=== PATIENT | female | born 1990 | race Caucasian/White ===

== ENCOUNTER → 2017-12-14 14:51 | Outpatient (CLI) | payer MEDICAID, SELFPAY ==
[2017-12-14 17:51] LABS: Chlamydia Trachomatis by PCR Negative (Negative); Neisserai gonorrhoeae by PCR Negative (Negative); Probe Check PASS; Sample Adequacy Control PASS; Specimen Processing Control PASS
[2017-12-22 11:39] LABS: HPV HC, High Risk Negative (Negative)
[2017-12-22 12:10] LABS: HPV Reflexed? YES, CHARGE PATIENT
== END ==
PROVIDERS: Visit Provider Obstetrics & Gynecology
DX: Z12.4 Encounter for screening for malignant neoplasm of cervix (principal); Z11.3 Encounter for screening for infections with a predominantly sexual mode of transmission
CPT/HCPCS: 87491; 87591; 87624; 88175; G0145

== ENCOUNTER → 2018-01-06 12:04 | Outpatient (CLI) | payer MEDICAID, SELFPAY ==
[2018-01-06 12:29] LABS: Absolute Lymphocyte Count 3.51 X10^3/ul (0.83-4.51); Absolute Neutrophil Count 6.9 X10^3/uL (2.0-7.7); Basophil# 0.02 X10^3/uL; Basophil% 0.2 % (0-1); Eosinophil# 0.28 X10^3/uL; Eosinophils% 2.5 % (0-5); Hematocrit 41.2 % (37-47); Hemoglobin 13.5 g/dl (12.0-15.0); Lymphocyte # 3.51 X10^3/ul (4.0); Lymphocyte % 31.5 % (19-41); Mean Corp Hgb Conc 32.8 g/gl (32-36); Mean Corpuscular Hgb 29.5 pg (27.0-32.0); Mean Platelet Vol. 9.7 fl (6.2-12.0); Monocyte# 0.45 X10^3/uL; Neutrophil # 6.89 X10^3/uL (2.7-7.7); Neutrophil % 61.7 % (47-70); Platelet Count 246 K/mm3 (150-450); RBC Distribution Width CV 12.9 % (11.6-14.6); RBC Distribution Width SD 42.1 fl (35.1-43.9); Red Blood Count 4.58 M/mm3 (4.2-5.4); White Blood Count 11.2 K/mm3 (4.4-11.0)
[2018-01-06 12:31] LABS: POSITIVE COUNT NO; POSITIVE DIFFERENTIAL NO; POSITIVE MORPHOLOGY NO
[2018-01-06 13:19] LABS: Thyroid Stim Hormone (TSH) 0.69 uIU/mL (0.358-3.74)
[2018-01-06 13:50] LABS: HIV - WCH Non-Reactive (Nonreactive); Rubella IgG 115.3 IU/mL
[2018-01-06 14:08] LABS: Color, Urine Yellow (Yellow); Glucose, Dipstick Normal (Normal); Ketone-Dipstick Negative (Negative); Leukocyte Esterase-Dipstick Negative /ul (Negative); Nitrite-Dipstick Negative (Negative); Occult Blood-Urine 10 /ul (Negative); Protein-Dipstick Negative (Negative); Urine Bilirubin Dipstick Negative (Negative); Urine Clarity Clear (Clear); Urine Urobilinogen Normal (Normal)
[2018-01-06 14:14] LABS: COTININE Drug Screen Positive (<200 ng/mL)
[2018-01-06 14:18] LABS: Amphetamine Urine VISTA NEGATIVE (<1000 ng/mL); Barbiturate Urine VISTA NEGATIVE (< 200 ng/mL); Benzodiazepine Urine VISTA NEGATIVE (< 200 ng/mL); Cocaine Urine VISTA NEGATIVE (< 300 ng/mL); Ecstacy Urine VISTA NEGATIVE (< 500 ng/mL); Methadone Urine VISTA NEGATIVE (< 300 ng/mL); PCP Urine VISTA NEGATIVE (< 25 ng/mL); THC Urine VISTA POSITIVE (< 50 ng/mL); Vista UDS pH Range 6
[2018-01-07 01:17] LABS: Prenatal RPR NONREACTIVE (NONREACTIVE)
[2018-01-08 07:50] LABS: HEPATITIS B SURFACE AG Negative (Negative); Hep C Antibodies <0.1 s/co ratio (0.0-0.9); V-Zoster IgG (Immunity) < 135 index (Immune >165)
== END ==
PROVIDERS: Visit Provider Obstetrics & Gynecology
DX: Z34.81 Encounter for supervision of other normal pregnancy, first trimester (principal)
CPT/HCPCS: 36415; 80307; 81002; 84443; 85025; 86703; 86762; 86787; 86803; 87340

== ENCOUNTER → 2018-03-11 14:58 | Outpatient (CLI) | payer MEDICAID, SELFPAY ==
[2018-03-18 19:07] LABS: AFP MoM Value 1.33 (.); AFP Value-EIA 54.7 ng/mL (.); Comment Report (.); DIA MoM Value 1.83 (.); DSR (By Age) 797 (.); DSR (Second Trimester) 4079 (.); Gestat. Age Based On As provided (.); Gestational Age 18.6 WEEKS (.); Insulin Dep Diabetes No (.); Maternal Age At EDD 28.8 yr (.); hCG MoM 0.62 (.); hCG Value 13918 mIU/mL (.)
[2018-03-20 09:51] LABS: CF, Screen Comment: (.)
--- OUTSIDE RECORDS SUMMARY | 2018-05-06 14:20 | XMS RPT_ITS ---
:1990 Author Organization OHIP Care Team Providers Name Role Phone RICO SEVERINO MD Attending Unavailable PHYSICIAN, NONE Primary Care Unavailable ROSSI CHAPMAN Attending Unavailable PHYSICIAN, NONE Primary Care Unavailable Refugio Murphy Attending Unavailable SealRefugio vaughan Attending Unavailable Noreen Fuentes Attending Unavailable PROBLEMS PROBLEMS DATE TYPE CONDITION / CODE ATTENDING STATUS SOURCE 03/11/2018 Unknown Z34.82 - Encounter Noreen Fuentes Active [facility] for supervision of [facility] other normal Hospital , second Repository trimester / Z34.82(ICD-10) 01/06/2018 Unknown Z34.81 - Encounter Refugio Murphy Active [facility] for supervision of Community other normal Hospital , first Repository trimester / Z34.81(ICD-10) 12/14/2017 Unknown Z12.4 - Encounter Refugio Murphy Active [place] for screening for Community malignant neoplasm Hospital of cervix / Repository Z12.4(ICD-10) 12/14/2017 Unknown Z11.3 - Encounter Refugio Murphy Active [place] for screening for Community infections with a Hospital predominantly Repository sexual mode of transmission / Z11.3(ICD-10) PROCEDURES PROCEDURES No Procedure Records FoundRESULTS RESULTS CYSTIC FIBROSIS PROF Collected: 03/11/2018 Status: F Source: SONY 2:30 PM [facility] REPOSITORY Order Comment: Is Patient ? Y Enter Completed Weeks of Gestation: 18.6 Patient's Weight (LBS.): 179 Race: / Number of Fetuses: 1 Is Patient Insulin-Dependent Diabetic?: N TYPE CODE TESTS RESULT OUT OF RANGE REFERENCE UNITS LAB L3280.0200 . Normal CF, SCREEN Comment: Result Comment: RESULTS: Negative for 32 mutations analyzed INTERPRETATION: This individual is negative for the mutations analyzed. This negative result may need further interpretation depending on the clinical indication. This result reduces but does not eliminate the risk to be a CF carrier. COMMENTS: The detection rate varies with ethnicity and is listed below. The presence of an undetected mutation in the CF gene cannot be ruled out. In the absence of family history, the remaining risk that a person with a negative result could have at least one CF mutation is listed in the table. If there is a family history of CF, these risk figures do not apply. As detailed information regarding this individual's family history would permit a more accurate assessment of this individual's risk to be a carrier of cystic fibrosis, please contact [facility] at for a revised report. Mutation Detection Detection rates are based on mutation Rates among Ethnic frequencies in patients affected with Groups cystic fibrosis. Among individuals with an atypical or mild presentation (e.g. congenital absence of the vas deferens, pancreatitis) detection rates may vary from those provided here: Carrier risk reduction when no family history Detection Ethnicity Rate Ashkenazi 05/07 to 97% Mu-Ism 05/06 to 90% (non-) -Czech to 69% to 73% to 55% This interpretation is based on the clinical and family relationship information provided and the current understanding of the molecular genetics of this condition. MUTATIONS ANALYZED: G85E V520F X3600B 2183AA to G R117H G542X E4140W 2184delA R334W S549N 394delTT 2789+5G to A R347H S549R 621+1G to T 3120+1G to A R347P G551D 711+1G to T 3659delC A455E R553X 1078delT 3849+10kbC to T YwxybW809 R560T 1717-1G to A 3876delA BrvmzJ768 X6133C 1898+1G to A 3905insT METHODS/LIMITATIONS: DNA is isolated from the sample and tested for the 32 CF mutations on the [employer] Array Platform ([email or web address]). Regions of the CFTR gene are amplified enzymatically and subjected to a solution-phase multiplex allele-specific primer extension with subsequent hybridization to a bead array and fluorescence detection. Polymorphisms F508C, I506V and I507V are included in this panel to rule out false positive hqahdI533 homozygotes. Reflex testing of 5T is included in the panel for R117H interpretation. False positive or negative results may occur for reasons that include genetic variants, blood transfusions, bone marrow transplantation, erroneous representation of family relationships or contamination of a sample with maternal cells. REFERENCES: 1. Updates on Carrier Screening for Cystic Fibrosis. (2011) Am J Ob Gynecol 117(4):1236-5007 2. Pratik et al. (2004) Danitza Med 6:387-91 3. Bailey et al. (2002) Danitza Med 4:379-391 4. Preconception and carrier screening for cystic fibrosis: (2001)ACOG.ACMG publication Results Released By: Han Kim, Ph.D., Network Technical Analyst Released By: Han Kim, Ph.D., Director LAB L3280.0400 . Normal COMMENT Comment Result Comment: The assay provides information intended to be used for carrier screening in adults of reproductive age, as an aid in screening, and as a confirmatory test for another medically established diagnosis in newborns and children. The test is not indicated for use in diagnostic testing, pre-implantation screening, or for any stand-alone diagnostic purposes without confirmation by another medically established diagnostic product or procedure. Performed at: [facility] [address] [id number] L Tacker: Daniel Crowley MD, Phone: [phone] Performed By: #### L3280.0100, L3290.0100 #### [facility] (refer to report for specific site) refer to report for address and phone number AFP TETRA QUAD Collected: 03/11/2018 Status: F Source: SONY SCREEN 2:30 PM [facility] REPOSITORY Order Comment: Is Patient ? Y Enter Completed Weeks of Gestation: 18.6 Patient's Weight (LBS.): 179 Race: / Number of Fetuses: 1 Is Patient Insulin-Dependent Diabetic?: N TYPE CODE TESTS RESULT OUT OF REFERENCE UNITS RANGE LAB L3290.110 . 0 TEST RESULTS: Normal *Screen Negative* LAB L3290.120 . WEEKS 0 GESTATIONAL AGE Normal 18.6 LAB L3290.130 . 1 GEST AGE FROM As Normal provided LAB L3290.140 . yr 1 MATRNL AGE @[place] Normal 28.8 LAB L3290.150 . 0 RACE Normal Other LAB L3290.160 . lbs 0 WEIGHT Normal 179 LAB L3290.170 . 0 INS DEP DIABETE No Normal LAB L3290.180 . 0 MULT GESTATION No Normal LAB L3290.190 . ng/mL 0 AFP VALUE-EIA Normal 54.7 LAB L3290.200 . 0 AFP MOM VALUE Normal 1.33 LAB L3290.210 . mIU/mL 0 HCG VALUE Normal 67395 LAB L3290.220 . 0 HCG MOM Normal 0.62 LAB L3290.230 . ng/mL 0 UE3 VALUE Normal 2.09 LAB L3290.240 . 0 UE3 MOM Normal 1.48 LAB L3290.250 . pg/mL 0 ALIN VALUE-EIA Normal 286.09 LAB L3290.260 . 0 ALIN MOM VALUE Normal 1.83 LAB L3290.270 . 0 OSBR RISK Normal 4399 LAB L3290.280 . 0 DSR 2ND TRIMEST Normal 4079 LAB L3290.290 . 0 DSR (BY AGE) Normal 797 LAB L3290.310 . 0 T18 RISK Normal Not increased LAB L3290.320 . 0 T18 (BY AGE) Normal 1:3104 LAB L3290.330 . 0 INTERPRETATION Normal Comment Result Comment: Interpretation: Screen Negative This result is screen negative for OSB, Down Syndrome and Trisomy 18. The AFP MoM and patient specific risks calculated are based on the gestational age and the clinical information provided. This test can identify up to 80% of open neural tube defects. Closed neural tube defects and some open defects may not be detected by this test. The combination of maternal age, AFP, hCG, uE3, and ALIN identifies 75-80% of Down Syndrome. The combination of maternal age, AFP, hCG and uE3 identifies 60% of Trisomy 18 pregnancies. The [place] [employer] recommends amniocentesis be offered to women age 35 and older. Recalculations are not recommended when gestational dating by LMP and ultrasound are within 10 days. Performed By: #### L3280.0100, L3290.0100 #### [facility] (refer to report for specific site) refer to report for address and phone number URINE DRUG SCREEN Collected: 01/06/2018 Status: F Source: [place] ([place]) 12:05 PM [facility] REPOSITORY Order Comment: List of Drugs Taken or Suspected? UNK TYPE CODE TESTS RESULT OUT OF RANGE REFERENCE UNITS LAB L505.0075 TO BE Normal CONFIRMED Result Comment: CONFIRMATORY TESTING FOR ALL POSITIVE URINE DRUG SCREEN RESULTS WILL ONLY BE SENT OUT UPON PHYSICIAN ORDER. VISTA Urine Drug Screen methods provide only preliminary analytical test results. A more specific alternate chemical method must be used in order to obtain a confirmed analytical result. Gas chromatography/mass spectrometery (GC/MS) is the preferred confirmatory method. Clinical consideration and professional judgement should be applied to any drug of abuse test result, particularly when preliminary positive results are used. URINE TCA TESTING MUST BE ORDERED SEPARATELY. USE TEST MNEMONIC: [facility]CA LAB L505.5005 VISTA UDS PH 6 Normal LAB L505.5015 <1000 ng/mL AMPHETAMINES Normal NEGATIVE LAB L505.5025 < 200 ng/mL BARBITIURATES Normal NEGATIVE LAB L505.5035 < 200 ng/mL BENZODIAZIPINE Normal NEGATIVE LAB L505.5045 < 300 ng/mL COCAINE Normal NEGATIVE LAB L505.5055 < 500 ng/mL ECSTACY Normal NEGATIVE LAB L505.5065 < 300 ng/mL METHADONE Normal NEGATIVE LAB L505.5075 < 300 ng/mL OPIATES Normal NEGATIVE LAB L505.5085 < 25 ng/mL PCP Normal NEGATIVE LAB L505.5095 < 50 High ng/mL THC POSITIVE Performed By: #### L505.5000, L505.6240 #### [facility] [address] [place], [place], [id number] NICOTINE URINE DRUG Collected: 01/06/2018 Status: F Source: SONY SCREEN 12:05 PM [facility] REPOSITORY Order Comment: List of Drugs Taken or Suspected? UNK TYPE CODE TESTS RESULT OUT OF RANGE REFERENCE UNITS LAB L505.6250 TO BE Normal CONFIRMED Result Comment: CONFIRMATORY TESTING FOR ALL POSITIVE URINE DRUG SCREEN RESULTS WILL ONLY BE SENT OUT UPON PHYSICIAN ORDER. The results of Urine Drug Screen methods provide only preliminary analytical test results. A more specific alternate chemical method must be used in order to obtain a confirmed analytical result. Gas chromatography/mass spectrometery (GC/MS) is the preferred confirmatory method. Clinical consideration and professional judgement should be applied to any drug of abuse test result, particularly when preliminary positive results are used. LAB L505.6270 <200 ng/mL High COT DRG Positive SCREEN Result Comment: Cotinine is the first-stage metabolite of Nicotine. Performed By: #### L505.5000, L505.6240 #### [facility] [address] [facility] [place], [address] CBC W/DIFF, AUTOMATED Collected: 01/06/2018 Status: F Source: [place] 12:05 PM [facility] REPOSITORY TYPE CODE TESTS RESULT OUT OF RANGE REFERENCE UNITS LAB L100.1000 4.4-11.0 K/mm3 High WBC 11.2 LAB L100.1200 4.2-5.4 M/mm3 Normal RBC 4.58 LAB L100.1300 12.0-15.0 g/dl Normal HGB 13.5 LAB L100.1400 37-47 % Normal HCT 41.2 LAB L100.1500 81-99 fL Normal MCV 90.0 LAB L100.1600 27.0-32.0 pg Normal MCH 29.5 LAB L100.1700 32-36 g/gl Normal MCHC 32.8 LAB L100.1810 11.6-14.6 % Normal RDW CV 12.9 LAB L100.1820 35.1-43.9 fl Normal RDW SD 42.1 LAB L100.1900 150-450 K/mm3 Normal PLT 246 LAB L100.2000 6.2-12.0 fl Normal MPV 9.7 LAB L100.2100 47-70 % Normal NEUT% 61.7 LAB L100.2200 19-41 % Normal LY% 31.5 LAB L100.2300 0-10 % Normal MONO% 4.0 LAB L100.2400 0-5 % Normal EO% 2.5 LAB L100.2500 0-1 % Normal BASO% 0.2 LAB L100.2550 0.0-0.9 % Normal IM GRAN % 0.100 Result Comment: IG% - Immature Granulocytes (promyelocytes, myelocytes and metamyelocytes) > 1% indicates that a LEFT SHIFT is Present. LAB L100.2620 2.0-7.7 X10 3/uL Normal Absolute Neut 6.9 LAB L100.2720 0.83-4.51 X10 3/ul Normal Absolute Lymph 3.51 Performed By: #### L100.0100 #### [facility] [place], [address] THYROID STIM HORMONE Collected: 01/06/2018 Status: F Source: SONY ([place]) 12:05 PM [facility] REPOSITORY TYPE CODE TESTS RESULT OUT OF RANGE REFERENCE UNITS LAB L501.9520 0.358-3.74 uIU/mL Normal TSH 0.69 Performed By: #### L501.9520 #### [facility] [address] [place], [address] RUBELLA IGG Collected: 01/06/2018 Status: F Source: [place] 12:05 PM [facility] REPOSITORY TYPE CODE TESTS RESULT OUT OF RANGE REFERENCE UNITS LAB L509.4000 IU/mL Normal Rubella IgG 115.3 Result Comment: Antibody results Interpretation of Immune Status < 5 IU/ml Presumed Non-immune 5 - < 10 IU/ml Equivocal > or = 10 IU/ml Presumed Immune Performed By: #### L509.4000, L3890.6005 #### [facility] [place], [place], [address] HIV - [facility] Collected: 01/06/2018 Status: F Source: [place] 12:05 [facility] REPOSITORY TYPE CODE TESTS RESULT OUT OF RANGE REFERENCE UNITS LAB L3890.6005 Nonreactive Normal HIV - H Non-Reactive Performed By: #### L509.4000, L3890.6005 #### [facility] [address] [place] [address], [address] URINALYSIS, ROUTINE Collected: 01/06/2018 Status: F Source: [place] (DIPSTICK) 12:05 PM [facility] REPOSITORY Order Comment: How was Urine Obtained? CLEAN CATCH TYPE CODE TESTS RESULT OUT OF RANGE REFERENCE UNITS LAB L400.3000 Yellow COLOR Normal Yellow LAB L400.3050 Clear Normal CLARITY Clear LAB L400.3200 Normal mg/dl Normal GLUCOSE, UR Normal LAB L400.3300 Negative mg/dL Normal BILIRUBIN URINE Negative LAB L400.3400 Negative mg/dl Normal KETONE UR Negative LAB L400.3465 1.002-1.030 Normal SP.GR. DIPSTX 1.020 LAB L400.3550 5.0 - 8.0 pH UR Normal 6.0 LAB L400.3600 Negative mg/dl PROT Normal DIPSTX Negative LAB L400.3700 Normal mg/dl Normal UROBILI Normal LAB L400.3750 Negative Normal NITRITE UR Negative LAB L400.3780 Negative /ul High 10 OCCULT BLOOD-UR LAB L400.3800 Negative /ul LEUK Normal ESTERASE Negative Performed By: #### L400.2010 #### [facility] [address] [place], [place], [address] T AND S-NO Collected: 01/06/2018 Status: F Source: SONY [place] W/PNP 12:05 PM [facility] REPOSITORY Order Comment: Reason for Type AND Screen/Red Cells: Surgery? N TYPE CODE TESTS RESULT OUT OF RANGE REFERENCE UNITS LAB B10.0800 O Normal BLOOD POSITIVE TYPE GEL LAB B100.4050 Normal Ab SCREEN NEGATIVE GEL Performed By: #### B100.7550 #### [facility] [address] [facility] [address] [place], [place], [address] RPR Collected: 01/06/2018 Status: F Source: [place] 12:05 PM [facility] REPOSITORY TYPE CODE TESTS RESULT OUT OF REFERENCE UNITS RANGE LAB L700.5100 NONREACTIVE Normal RPR NONREACTIVE Performed By: #### L700.5100 #### [facility] [address] [facility] [address] [place], [place], [address] HEPATITIS B SURFACE Collected: 01/06/2018 Status: F Source: S[place]Y AG 12:05 PM [facility] REPOSITORY TYPE CODE TESTS RESULT OUT OF RANGE REFERENCE UNITS LAB L3100.0400 Negative Normal HB Negative SURF AG Result Comment: Performed at: - [facility] [id number] L Tacker: Bebo Rucker PhD, Phone: [phone] Performed By: #### L3100.0390, L3100.0625, L3400.0000 #### [facility] (refer to report for specific site) refer to report for address and phone number HEPATITIS C ANTIBODIES Collected: 01/06/2018 Status: F Source: [place] 12:05 PM [facility] REPOSITORY TYPE CODE TESTS RESULT OUT OF RANGE REFERENCE UNITS LAB L3100.0650 0.0-0.9 s/co ratio Normal HEP C AB <0.1 Result Comment: Negative: < 0.8 Indeterminate: 0.8 - 0.9 Positive: > 0.9 The CDC recommends that a positive HCV antibody result be followed up with a HCV Nucleic Acid Amplification test (556292). Performed By: #### L3100.0390, L3100.0625, L3400.0000 #### [facility] (refer to report for specific site) refer to report for address and phone number V-ZOSTER IGG Collected: 01/06/2018 Status: F Source: [place] (IMMUNITY) 12:05 PM [facility] REPOSITORY TYPE CODE TESTS RESULT OUT OF RANGE REFERENCE UNITS LAB L3400.0000 Immune >165 index Low VZOST IgG < 135 95298 Result Comment: Negative <135 Equivocal 135 - 165 Positive >165 A positive result generally indicates exposure to the pathogen or administration of specific immunoglobulins, but it is not indication of active infection or stage of disease. Performed By: #### L3100.0390, L3100.0625, L3400.0000 #### [facility] (refer to report for specific site) refer to report for address and phone number CT/NG [facility] BY PCR Collected: 12/14/2017 Status: F Source: [place] 2:30 PM [facility] REPOSITORY Order Comment: CYTOLOGY INFORMATION: - CLINICAL INFORMATION: - DATE LMP/MENOPAUSE: 10-30-17 LMP - COLLECTION VIAL: Thin Prep Vial - VEHICLE BODY SANDER SOURCE: CERVICAL/ENDOCERVICAL - COLLECTION TECHNIQUE: BRUSH/SPATULA TYPE CODE TESTS RESULT OUT OF RANGE REFERENCE UNITS LAB L8200.2100 Negative Normal Chlam Negative Trac PCR LAB L8200.2200 Negative Normal NG by Negative PCR Performed By: #### L8200.2000 #### [facility] [place], [address] PAP I-G W/RFX HRHPV Collected: 12/14/2017 Status: F Source: [place] 2:30 PM [facility] REPOSITORY Order Comment: CYTOLOGY INFORMATION: - CLINICAL INFORMATION: - DATE LMP/MENOPAUSE: 10-30-17 LMP - COLLECTION VIAL: Thin Prep Vial - VEHICLE BODY SANDER SOURCE: CERVICAL/ENDOCERVICAL - COLLECTION TECHNIQUE: BRUSH/SPATULA Specimen Comment: [id number] Specimen Comment: No. of containers..01 ThinPrep Vial TYPE CODE TESTS RESULT OUT OF REFERENCE UNITS RANGE LAB L7400.0800 . High DIAGN Comment Result Comment: EPITHELIAL CELL ABNORMALITY. ATYPICAL SQUAMOUS CELLS OF UNDETERMINED SIGNIFICANCE. LAB L7400.0900 . Normal ADEQ Comment Result Comment: Satisfactory for evaluation. Endocervical and/or squamous metaplastic cells (endocervical component) are present. LAB L7400.1300 . High RECOMM Comment Result Comment: Suggest follow up as clinically appropriate. LAB L7400.1400 . Normal PERFORM Comment Result Comment: Hiram Elaine, [employer] (ASCP) LAB L7400.1700 . Normal SIGN Comment Result Comment: Nam De La Cruz MD, Pathologist LAB L7400.1720 . Normal Path prov. Comment ICD9 Result Comment: R87.610 LAB L7400.2575 . Normal TEST METHOD Comment Result Comment: This liquid based ThinPrep(R) pap test was screened with the use of an image guided system. LAB L7400.2600 . Normal . COMM LAB L7400.2700 . Normal PAPSMR Comment Result Comment: The Pap smear is a screening test designed to aid in the detection of premalignant and malignant conditions of the uterine cervix. It is not a diagnostic procedure and should not be used as the sole means of detecting cervical cancer. Both false-positive and false-negative reports do occur. LAB L7400.2800 . Normal HPV RFLX Comment Result Comment: See below for HPV testing results. LAB L7400.2900 Negative Normal HPV Negative HC,HGH RISK Result Comment: This high-risk HPV test detects thirteen high-risk types (16/18/31/33/35/39/45/51/52/56/58/59/68) without differentiation. Performed at: - [facility] [id number] L Tacker: Farideh Resendiz MD, Phone: [phone] Performed at: = - [facility] [address] [id number] L Tacker: Farideh Resendiz MD, Phone: [phone] Performed By: #### L7400.0350 #### [facility] (refer to report for specific site) refer to report for address and phone number XR CHEST 2 VIEWS Observed: 11/18/2017 Status: F Source: [facility] 9:13 AM [facility] REPOSITORY ORIGINAL XR CHEST 2 VIEWS Clinical information: productive cough No prior studies are available for comparison. The heart is normal in size and configuration. Pulmonary vascular pattern is normal. The lungs are clear and normally aerated. The pleural margins and bony thorax are unremarkable. IMPRESSION: No acute intrathoracic abnormality. Interpreted By: Jose Manuel Mercer MD Preliminary Report By: Jose Manuel Mercer MD Electronically Signed By: Jose Manuel Mercer MD Dictated Date: 11/18/2017 9:19:09 AM Prelim Date: 11/18/2017 9:19:09 AM Sign Date: 11/18/2017 9:20:35 AM PREGU Collected: 11/18/2017 Status: F Source: [facility] 8:57 AM [facility] REPOSITORY TYPE CODE TESTS RESULT OUT OF RANGE REFERENCE UNITS LAB PREGU(LOIN C) Test Negative Urine LAB PRUG1(LOIN C) Unknown test HCG not (u) int detected. Performed By: #### PREGU #### [address] [address] ALLERGIES ALLERGIES No Allergies Records FoundENCOUNTERS ENCOUNTERS ADMIT/DISCHARGE ACCOUNT NUMBER ADMITTING ENCOUNTER LOCATION SOURCE CLASS 03/11/2018 [id number] [facility] ding:[facility] Repository 01/06/2018 [id number] [facility] ding:WOBLAB Repository 12/14/2017 [id number] [facility] ding:[facility] Repository 11/18/2017/11/19/19 [id number] Emergency BBuilding:ER [address] Repository 10/09/2017/10/10/19 [id number] Emergency BBuilding:ER [address] Repository PAYERS PAYERS ENCOUNTER GUARANTOR PAYER SUBSCRIBER SOURCE 03/11/2018 DANNY Primary DANNY [place] [id number] PADRONI [facility] On [facility] of [facility] Number: [id number] [id number] Repository [address]Lfo: . () Date:2018-03-11[address]ATTN: [place] [address]IA: 03/11/2018 Secondary NOT GIVENUNK [facility] Insurance:SELF PAY [facility] Number: Effective Repository Date:2018-03-11 01/06/2018 DANNY Primary DANNY [facility] [id number] [place] Insurance:CARESOURCEP CLAPPERDOB: On license of [facility] Number: [id number] [place], [place] [id number] Repository [address]Tux: . () Date:2018-01-06[address]ATTN: [place] [address]RJ: 01/06/2018 Secondary NOT GIVENUNK [place] Insurance:SELF PAY [facility] Number: Effective Repository Date:2018-01-06 12/14/2017 DANNY Primary DANNY [facility] [id number] [place] Insurance:CARESOURCEP CLAPPERDOB: On license of [facility] Number: [id number] [place], [place] [id number] Repository [address]Css: . () Date:2017-12-14[address]ATTN: [place] [address]FC: 12/14/2017 Secondary NOT GIVENUNK [place] Insurance:SELF PAY [facility] Number: Effective Repository Date:2017-12-14 11/18/2017 [facility]NY [facility]: [facility] [id number] MEDICAIDPolicy [id number] Repository [place] Number: [address] [place], [place] [id number] [place], [place] [address]Ywy: (330) Date:2017-11-18 [id number]: () [id number] [phone] Name:ALEXY Lambert ()Tel: [phone], [place] [phone] () [address]HV: 10/09/2017 DANNY M Primary [facility]NY [facility]: [facility]:CARESOURCE CLAPPERDOB: [facility] MEDICAIDPolicy [id number] Repository [place] Number: [address] [place], [place] [id number] [place], [place] [address]Cld: ([phone]) Date:2017-10-09 [id number]: () [id number] [phone] Name:LUZO Fausto ()Tel: [phone], [place] [phone] () [phone]:
== END ==
PROVIDERS: Visit Provider Obstetrics & Gynecology
DX: Z34.82 Encounter for supervision of other normal pregnancy, second trimester (principal)
CPT/HCPCS: 36415; 81220; 82105; 82677; 84702; 86336

== ENCOUNTER → 2018-04-28 13:27 | Outpatient (CLI) | payer MEDICAID, SELFPAY ==
[2018-04-28 15:59] LABS: Hematocrit 36.9 % (37-47); Hemoglobin 12.1 g/dl (12.0-15.0); Mean Corp Hgb Conc 32.8 g/gl (32-36); Mean Corpuscular Hgb 30.1 pg (27.0-32.0); Mean Corpuscular Volume 91.8 fL (81-99); Mean Platelet Vol. 10.3 fl (6.2-12.0); Platelet Count 246 K/mm3 (150-450); RBC Distribution Width CV 13.1 % (11.6-14.6); RBC Distribution Width SD 43.2 fl (35.1-43.9); Red Blood Count 4.02 M/mm3 (4.2-5.4); Scan Indicated on CBC? Y/N NO; White Blood Count 9.8 K/mm3 (4.4-11.0)
[2018-04-28 16:14] LABS: Glucose Challenge Gest 1H 50g 129 mg/dL (70-140)
--- OUTSIDE RECORDS SUMMARY | 2018-07-03 08:02 | XMS RPT_ITS ---
:1990 Author Organization OH[facility] Care Team Providers Name Role Phone RICO SEVERINO MD Attending Unavailable PHYSICIAN, NONE Primary Care Unavailable ROSSI CHAPMAN Attending Unavailable PHYSICIAN, NONE Primary Care Unavailable Katherine, Refugio Attending Unavailable Seals, Refugio Attending Unavailable Seals, Refugio Attending Unavailable Noreen Fuentes Attending Unavailable PROBLEMS PROBLEMS DATE TYPE CONDITION / CODE ATTENDING STATUS SOURCE 04/28/2018 Unknown Z34.82 - Encounter Refugio Murphy for supervision of Community other normal Hospital , second Repository trimester / Z34.82(ICD-10) 01/06/2018 Unknown Z34.81 - Encounter SealRefugio vaughan for supervision of Community other normal Hospital , first Repository trimester / Z34.81(ICD-10) 12/14/2017 Unknown Z12.4 - Encounter SealRefugio vaughan for screening for Community malignant neoplasm Hospital of cervix / Repository Z12.4(ICD-10) 12/14/2017 Unknown Z11.3 - Encounter SealRefugio vaughan for screening for Community infections with a Hospital predominantly Repository sexual mode of transmission / Z11.3(ICD-10) PROCEDURES PROCEDURES No Procedure Records FoundRESULTS RESULTS CBC-COMPLETE BLOOD CNT Collected: 04/28/2018 Status: F Source: [facility] NO DIFF [facility] TYPE CODE TESTS RESULT OUT OF RANGE REFERENCE UNITS LAB L100.1000 4.4-11.0 K/mm3 Normal WBC 9.8 LAB L100.1200 4.2-5.4 M/mm3 Low RBC 4.02 LAB L100.1300 12.0-15.0 g/dl Normal HGB 12.1 LAB L100.1400 37-47 % Low HCT 36.9 LAB L100.1500 81-99 fL Normal MCV 91.8 LAB L100.1600 27.0-32.0 pg Normal MCH 30.1 LAB L100.1700 32-36 g/gl Normal MCHC 32.8 LAB L100.1810 11.6-14.6 % Normal RDW CV 13.1 LAB L100.1820 35.1-43.9 fl Normal RDW SD 43.2 LAB L100.1900 150-450 K/mm3 Normal PLT 246 LAB L100.2000 6.2-12.0 fl Normal MPV 10.3 Performed By: #### L100.0500 #### [facility] [address] [place], [address] GLUCOSE CHALLENGE GEST Collected: 04/28/2018 Status: F Source: [place] 1H 50G 2:25 PM [facility] REPOSITORY TYPE CODE TESTS RESULT OUT OF RANGE REFERENCE UNITS LAB L501.0250 70-140 mg/dL Normal GLU GEST 129 50g 1H Performed By: #### L501.0250 #### [facility] [address] [place], [address] CYSTIC FIBROSIS PROF Collected: 03/11/2018 Status: F Source: [place] 2:30 PM [facility] REPOSITORY Order Comment: Is Patient ? Y [...] a carrier of cystic fibrosis, please contact [employer] at for a revised report. Mutation Detection Detection rates are based on mutation Rates among Ethnic frequencies in patients affected with Groups cystic fibrosis. Among individuals with an atypical or mild presentation (e.g. congenital absence of the vas deferens, pancreatitis) detection rates may vary from those provided here: Carrier risk reduction when no family history Detection Ethnicity Rate Ashkenazi 05/07 to 97% Uatsdin 05/06 to 90% (non-) -Mosotho to 69% to 73% to 55% This interpretation is based on the clinical and family relationship information provided and the current understanding of the molecular genetics of this condition. MUTATIONS ANALYZED: G85E V520F K9533R 2183AA to G R117H G542X I8044F 2184delA R334W S549N 394delTT 2789+5G to A R347H S549R 621+1G to T 3120+1G to A R347P G551D 711+1G to T 3659delC A455E R553X 1078delT 3849+10kbC to T QcraiM960 R560T 1717-1G to A 3876delA TxyvuQ299 R1875M 1898+1G to A 3905insT METHODS/LIMITATIONS: DNA is isolated from the sample and tested for the 32 CF mutations on the [employer] Array Platform ([employer]). Regions of the CFTR gene are amplified enzymatically and subjected to a solution-phase multiplex allele-specific primer extension with subsequent hybridization to a bead array and fluorescence detection. Polymorphisms F508C, I506V and I507V are included in this panel to rule out false positive [id number] homozygotes. Reflex testing of 5T is included in the panel for R117H interpretation. False positive or negative results may occur for reasons that include genetic variants, blood transfusions, bone marrow transplantation, erroneous representation of family relationships or contamination of a sample with maternal cells. REFERENCES: 1. Updates on Carrier Screening for Cystic Fibrosis. (2011) Am J Ob Gynecol 117(4):3819-1488 2. Pratik et al. (2004) [place]itza Med 6:387-91 3. Bailey et al. (2002) [place]za Med 4:379-391 4. Preconception and carrier screening for cystic fibrosis: (2001)ACOG.ACMG publication Results Released By: Han Kim, Ph.D., Tire Repairer Released By: Han Kim, Ph.D., Director LAB [...] established diagnostic product or procedure. Performed at: - [facility] [address] [place], [place] [id number] Slab Conditioner Supervisor: Daniel Crowley MD, Phone: [phone] Performed By: #### L3280.0100, L3290.0100 #### [facility] (refer to report for specific site) refer to report for address and phone number AFP TETRA QUAD Collected: 03/11/2018 Status: F Source: [place]ON[place] SCREEN 2:30 PM [facility] REPOSITORY Order Comment: Is Patient ? Y [...] L3290.210 . mIU/mL 0 HCG VALUE Normal 68900 LAB L3290.220 . 0 HCG MOM Normal [...] identifies 60% of Trisomy 18 pregnancies. The [place] [employer] recommends amniocentesis be offered to women age 35 and older. Recalculations are not recommended when gestational dating by LMP and ultrasound are within 10 days. Performed By: #### L3280.0100, L3290.0100 #### [facility] (refer to report for specific site) refer to report for address and phone number URINE DRUG SCREEN Collected: 01/06/2018 Status: F Source: [place] ([place]) 12:05 PM [facility] REPOSITORY Order Comment: List of Drugs Taken [...] POSITIVE Performed By: #### L505.5000, L505.6240 #### [facility] [address] [place], [place], [address] NICOTINE URINE DRUG Collected: 01/06/2018 Status: F Source: [place] SCREEN 12:05 PM [facility] REPOSITORY Order Comment: List of Drugs Taken [...] Nicotine. Performed By: #### L505.5000, L505.6240 #### [facility] [address] [place], [address] CBC W/DIFF, AUTOMATED Collected: 01/06/2018 Status: F Source: [place] 12:05 PM [facility] REPOSITORY TYPE CODE TESTS RESULT OUT [...] Lymph 3.51 Performed By: #### L100.0100 #### [facility] [address] [place] [address], [id number] THYROID STIM HORMONE Collected: 01/06/2018 Status: F Source: [place] (TSH) 12:05 PM [facility] REPOSITORY TYPE CODE TESTS RESULT OUT OF RANGE REFERENCE UNITS LAB L501.9520 0.358-3.74 uIU/mL Normal TSH 0.69 Performed By: #### L501.9520 #### [facility] [address] [place], [place], [address] RUBELLA IGG Collected: 01/06/2018 Status: F Source: [place] 12:05 PM [facility] REPOSITORY TYPE CODE TESTS RESULT OUT OF RANGE REFERENCE UNITS LAB L509.4000 IU/mL Normal Rubella IgG 115.3 Result Comment: Antibody results Interpretation of Immune Status < 5 IU/ml Presumed Non-immune 5 - < 10 IU/ml Equivocal > or = 10 IU/ml Presumed Immune Performed By: #### L509.4000, L3890.6005 #### [facility] [address] [place], [place], [address] HIV - WCH Collected: 01/06/2018 Status: F Source: [place] 12:05 PM [facility] REPOSITORY TYPE CODE TESTS RESULT OUT OF RANGE REFERENCE UNITS LAB L3890.6005 Nonreactive Normal HIV - WC Non-Reactive Performed By: #### L509.4000, L3890.6005 #### [facility] [address] [facility] [place], [place], [address] URINALYSIS, ROUTINE Collected: 01/06/2018 Status: F Source: [place] (DIPST[place]) 12:05 PM [facility] REPOSITORY Order Comment: How was Urine Obtained? [...] ESTERASE Negative Performed By: #### L400.2010 #### [facility] [address] [facility] [place], [place], [address] T AND S-NO Collected: 01/06/2018 Status: F Source: [place] CHARGE W/PNP 12:05 PM [facility] REPOSITORY Order Comment: Reason for Type AND Screen/Red Cells: Surgery? N TYPE CODE TESTS RESULT OUT OF RANGE REFERENCE UNITS LAB B10.0800 O Normal BLOOD POSITIVE TYPE GEL LAB B100.4050 Normal Ab SCREEN NEGATIVE GEL Performed By: #### B100.7550 #### [facility] [address] [place], [place], [address] RPR Collected: 01/06/2018 Status: F Source: [place] 12:05 PM [facility] REPOSITORY TYPE CODE TESTS RESULT OUT OF REFERENCE UNITS RANGE LAB L700.5100 NONREACTIVE Normal RPR NONREACTIVE Performed By: #### L700.5100 #### [facility] [address] [place], [place], [address] HEPATITIS B SURFACE Collected: 01/06/2018 Status: F Source: [place] AG 12:05 PM [facility] REPOSITORY TYPE CODE TESTS RESULT OUT OF RANGE REFERENCE UNITS LAB L3100.0400 Negative Normal HB Negative SURF AG Result Comment: Performed at: [facility] [id number] Slab Conditioner Supervisor: Bebo Rucker PhD, Phone: [phone] Performed By: #### L3100.0390, L3100.0625, L3400.0000 #### [facility] (refer to report for specific site) refer to report for address and phone number HEPATITIS C ANTIBODIES Collected: 01/06/2018 Status: F Source: [place] 12:05 PM [facility] REPOSITORY TYPE CODE TESTS RESULT OUT OF RANGE REFERENCE UNITS LAB L3100.0650 0.0-0.9 s/co ratio Normal HEP C AB <0.1 Result Comment: Negative: < 0.8 Indeterminate: 0.8 - 0.9 Positive: > 0.9 The CDC recommends that a positive HCV antibody result be followed up with a HCV Nucleic Acid Amplification test (712748). Performed By: #### L3100.0390, L3100.0625, L3400.0000 #### [facility] (refer to report for specific site) refer to report for address and phone number V-ZOSTER IGG Collected: 01/06/2018 Status: F Source: [place] (IMMUNITY) 12:05 PM [facility] REPOSITORY TYPE CODE TESTS RESULT OUT OF RANGE REFERENCE UNITS LAB L3400.0000 Immune >165 index Low VZOST IgG < 135 15149 Result Comment: Negative <135 Equivocal 135 - [...] BY PCR Collected: 12/14/2017 Status: F Source: [place] 2:30 PM [facility] REPOSITORY Order Comment: CYTOLOGY INFORMATION: - CLINICAL INFORMATION: - DATE LMP/MENOPAUSE: 10-30-17 LMP - COLLECTION VIAL: Thin Prep Vial - ONLINE RETAILER SOURCE: CERVICAL/ENDOCERVICAL - COLLECTION TECHNIQUE: BRUSH/SPATULA TYPE CODE TESTS RESULT OUT OF RANGE REFERENCE UNITS LAB L8200.2100 Negative Normal Chlam Negative Trac PCR LAB L8200.2200 Negative Normal NG by Negative PCR Performed By: #### L8200.2000 #### [facility] [address] [place], [address] PAP I-G W/RFX HRHPV Collected: 12/14/2017 Status: F Source: [place] 2:30 PM [facility] REPOSITORY Order Comment: CYTOLOGY INFORMATION: - CLINICAL INFORMATION: - DATE LMP/MENOPAUSE: 10-30-17 LMP - COLLECTION VIAL: Thin Prep Vial - ONLINE RETAILER SOURCE: CERVICAL/ENDOCERVICAL - COLLECTION TECHNIQUE: BRUSH/SPATULA Specimen Comment: [id number] Specimen Comment: No. of containers..01 ThinPrep Vial [...] Normal PERFORM Comment Result Comment: Hiram Elaine, Electrical Maintenance Engineer (ASCP) LAB L7400.1700 . Normal SIGN Comment [...] types (16/18/31/33/35/39/45/51/52/56/58/59/68) without differentiation. Performed at: - [facility] [id number] Slab Conditioner Supervisor: Farideh Resendiz MD, Phone: [phone] Performed at: = - [facility] [id number] Slab Conditioner Supervisor: Farideh Resendiz MD, Phone: [phone] Performed By: #### L7400.0350 #### [facility] (refer to report for specific site) refer to report for address and phone number XR CHEST 2 VIEWS Observed: 11/18/2017 Status: F Source: [facility] 9:13 AM [facility] REPOSITORY ORIGINAL XR CHEST [...] AM PREGU Collected: 11/18/2017 Status: F Source: [facility] 8:57 AM [facility] REPOSITORY TYPE CODE TESTS RESULT OUT OF RANGE REFERENCE UNITS LAB PREGU(LOIN C) Test Negative Urine LAB PRUG1(LOIN C) Unknown test HCG not (u) int detected. Performed By: #### PREGU #### Heather [address] [address] ALLERGIES ALLERGIES No Allergies Records FoundENCOUNTERS ENCOUNTERS ADMIT/DISCHARGE ACCOUNT NUMBER ADMITTING ENCOUNTER LOCATION SOURCE CLASS 04/28/2018 [id number] [facility] ding:WOBLAB Repository 03/11/2018 [id number] [facility] ding:LABSPEC Repository 01/06/2018 [id number] [facility] ding:WOBLAB Repository 12/14/2017 [id number] [facility] ding:LABSPEC Repository 11/18/2017/11/19/19 [id number] Emergency BBuilding:ER [address] Repository 10/09/2017/10/10/19 [id number] Emergency BBuilding:ER [address] Repository PAYERS PAYERS ENCOUNTER GUARANTOR PAYER SUBSCRIBER SOURCE 04/28/2018 DANNY Primary DANNY [place] [id number] MARINA Insurance:[facility]: [facility] Number: [id number] [id number] Repository [address]Vel: . () Date:2018-04-28[address]ATTN: [place] [address]JO: 04/28/2018 Secondary NOT GIVENUNK Sony Insurance:SELF PAY [facility] Number: Effective Repository Date:2018-04-28 03/11/2018 DANNY Primary DANYN [place] [id number] MARINA [facility] Number: [id number], [place] [id number] Repository [address]Mhi: . () Date:2018-03-11[address]N: [place] [address]DR: 03/11/2018 Secondary NOT GIVENUNK [place] Insurance:SELF PAY [facility] Number: Effective Repository Date:2018-03-11 01/06/2018 DANNY Primary DANNY [place] [id number] MARINA Insurance:CARESOURCEP CLAPPERDOB: [facility] Number: [id number], [place] [id number] Repository [address]Upo: . () Date:2018-01-06[address]ATTN: [place] [address]RT: 01/06/2018 Secondary NOT GIVENUNK Sony Insurance:SELF PAY [facility] Number: Effective Repository Date:2018-01-06 12/14/2017 DANNY Primary DANNY [place] [id number] MARINA Insurance:CARESOURCEP CLAPPERDOB: [facility] Number: [id number], [place] [id number] Repository [address]Gsw: . () Date:2017-12-14[address]ATTN: [place] [address]JH: 12/14/2017 Secondary NOT GIVENUNK Sony Insurance:SELF PAY [facility] Number: Effective Repository Date:2017-12-14 11/18/2017 [address] [facility]:CARESOURCE CLAERDOB: [facility] [id number] [facility]ICAIDPol[facility] [id number] Repository NEBO Number: [address] [place], [place] [id number] [place], [place] [address]Iue: ([phone]) Date:2017-11-18 [phone]: () [id number] [phone] Name:XPO Fausto ()Tel: [phone], [place] [phone] (WP) [address]AQ: 10/09/2017 [facility]THE [facility] LOUISElena JACKSONB: [facility] [id number] [facility]IDH[facility] [id number] Repository NE[place] Number: [address] [place], [place] [id number] [place], [place] [address]Cyj: ([phone]) Date:2017-10-09 [address]Ufn: () [id number] [phone] Name:LUZO Fausto ()Tel: [phone], [place] [phone] () [phone]:
== END ==
PROVIDERS: Visit Provider Obstetrics & Gynecology
DX: Z34.82 Encounter for supervision of other normal pregnancy, second trimester (principal)
CPT/HCPCS: 36415; 82950; 85027

== ENCOUNTER 2018-05-25 05:00 | Outpatient (CLI) | payer MEDICAID, SELFPAY ==
[2018-05-25 05:20] VITALS: BMI 33.8
[2018-05-25 06:23] LABS: Absolute Lymphocyte Count 0.96 X10^3/ul (0.83-4.51); Absolute Neutrophil Count 8.3 X10^3/uL (2.0-7.7); Basophil# 0.01 X10^3/uL; Basophil% 0.1 % (0-1); Eosinophil# 0.07 X10^3/uL; Eosinophils% 0.7 % (0-5); Hematocrit 37.9 % (37-47); Hemoglobin 12.4 g/dl (12.0-15.0); Lymphocyte # 0.96 X10^3/ul (4.0); Lymphocyte % 9.8 % (19-41); Mean Corp Hgb Conc 32.7 g/gl (32-36); Mean Corpuscular Hgb 29.7 pg (27.0-32.0); Mean Corpuscular Volume 90.7 fL (81-99); Mean Platelet Vol. 10.2 fl (6.2-12.0); Monocyte# 0.49 X10^3/uL; Neutrophil # 8.28 X10^3/uL (2.7-7.7); Neutrophil % 84.1 % (47-70); Platelet Count 210 K/mm3 (150-450); RBC Distribution Width SD 42.6 fl (35.1-43.9); Red Blood Count 4.18 M/mm3 (4.2-5.4); White Blood Count 9.8 K/mm3 (4.4-11.0)
[2018-05-25] MEDS: 0.9% Normal Saline 1,000 ML 500 ML IV (06:23)
[2018-05-25] MEDS: Ondansetron 4 MG/2 ML Vial IV (06:28)
[2018-05-25 06:29] LABS: POSITIVE COUNT NO; POSITIVE DIFFERENTIAL NO; POSITIVE MORPHOLOGY NO
[2018-05-25 06:42] LABS: ALB/GLOB Ratio 0.7 RATIO (0.9-2.4); AST(SGOT) 26 U/L (15-37); Alanine Aminotransfer ALT/SGPT 30 U/L (13-56); Albumin, Serum 2.5 g/dL (3.2-5.0); Alkaline Phosphatase 104 U/L (45-117); Amylase 29 U/L (25-115); Anion Gap 11 (5-15); BUN 7 mg/dL (7-18); BUN/Creat Ratio 16.9 RATIO (10-20); Calcium,Total 8.4 mg/dL (8.5-10.1); Chloride 106 mmol/L (98-107); Creatinine, Serum 0.41 mg/dL (0.55-1.02); EST Glomerular Filtration Rate 194 mL/min (>60); Est Glom Filt Rate - Afr Amer 235 mL/min (>60); Estimated Creatinine Clearance 161.57 ml/min; Globulin 3.8 g/dL (2.2-4.2); Glucose 97 mg/dL (74-106); Lipase 97 U/L (73-393); Potassium 3.7 mmol/L (3.5-5.1); Protein, Total 6.3 g/dL (6.4-8.2); Sodium Level 139 mmol/L (136-145)
[2018-05-25] MEDS: Dextrose 5%/0.9% NaCl 1,000 ML 200 ML IV (07:28)
--- NOTE | 2018-05-25 09:32 | OB.TRI.NOTE ---
History of Present Illness Date of Service: 05/25/18 Was patient seen by the physician?: No Reason For Visit: Flu symptoms Date of Service: 05/25/18 Final NEVILLE: 08/06/18 Final NEVILLE Source: US <20 weeks Gestational age: 29 Weeks and 4 Days History of Present Illness: 29+ week intrauterine presents with nausea vomiting and feeling poorly. care has been uneventful except for the patient being a smoker. Allergies No Known Allergies Allergy (Verified 05/25/18 05:33) Laboratory Studies: Laboratory Tests 05/25/18 05/25/18 Range/Units 06:10 06:10 WBC 9.8 (4.4-11.0) K/mm3 RBC 4.18 L (4.2-5.4) M/mm3 Hgb 12.4 (12.0-15.0) g/dl Hct 37.9 (37-47) % MCV 90.7 (81-99) fL MCH 29.7 (27.0-32.0) pg MCHC 32.7 (32-36) g/gl RDW 13.0 (11.6-14.6) % RDW Differential 42.6 (35.1-43.9) fl Plt Count 210 (150-450) K/mm3 MPV 10.2 (6.2-12.0) fl Immature Gran % (Auto) 0.300 (0.0-0.9) % Neut % (Auto) 84.1 H (47-70) % Lymph % (Auto) 9.8 L (19-41) % Elbert % (Auto) 5.0 (0-10) % Eos % (Auto) 0.7 (0-5) % Baso % (Auto) 0.1 (0-1) % Absolute Neuts (auto) 8.3 H (2.0-7.7) X10^3/uL Absolute Lymphs (auto) 0.96 (0.83-4.51) X10^3/ul Total Counted Not Reportable Sodium 139 (136-145) mmol/L Potassium 3.7 (3.5-5.1) mmol/L Chloride 106 (98-107) mmol/L Carbon Dioxide 22.0 (21.0-32.0) mmol/L Anion Gap 11 (5-15) BUN 7 (7-18) mg/dL Creatinine 0.41 L (0.55-1.02) mg/dL Estim Creat Clear Calc 161.57 ml/min Est GFR (MDRD) Af Amer 235 (>60) mL/min Est GFR (MDRD) Non-Af 194 (>60) mL/min BUN/Creatinine Ratio 16.9 (10-20) RATIO Glucose 97 (74-106) mg/dL Calcium 8.4 L (8.5-10.1) mg/dL Total Bilirubin 0.60 (0.20-1.00) mg/dL AST 26 (15-37) U/L ALT 30 (13-56) U/L Alkaline Phosphatase 104 (45-117) U/L Total Protein 6.3 L (6.4-8.2) g/dL Albumin 2.5 L (3.2-5.0) g/dL Globulin 3.8 (2.2-4.2) g/dL Albumin/Globulin Ratio 0.7 L (0.9-2.4) RATIO Amylase 29 (25-115) U/L Lipase 97 (73-393) U/L NST - FHR Rate Baby A NST Reactive:: Yes FHR Category:: Category I Impression/Plan 29+ week intrauterine with dehydration and some flulike symptoms. Reactive nonstress test. Will check patient for influenza and if positive will call in prescription for Tamiflu. Otherwise continue to push oral fluids, use Tylenol, and rest. Return with decreased movement or if severe nausea and vomiting persist for greater than 24 hours.
== END 2018-05-25 09:35 | disposition home or self-care (01) ==
LOC: WPOUT 05:07 → WP 05:07
PROVIDERS: Visit Provider Obstetrics & Gynecology
DX: O26.893 Other specified pregnancy related conditions, third trimester (principal); Z3A.29 29 weeks gestation of pregnancy; E86.0 Dehydration; R11.2 Nausea with vomiting, unspecified
CPT/HCPCS: 96361 ×3; 96374; 59050; 80053; 82150; 83690; 85025; 87804; 99218; J7030; G0378; J2405

== ENCOUNTER → 2018-07-07 10:56 | Outpatient (CLI) | payer MEDICAID, SELFPAY | PROVIDERS: Referring Provider Obstetrics & Gynecology; Visit Provider Obstetrics & Gynecology | DX: Z36.85 Encounter for antenatal screening for Streptococcus B (principal) | CPT/HCPCS: 87081 ==

== ENCOUNTER 2018-07-13 06:50 | Outpatient (CLI) | payer MEDICAID, SELFPAY ==
[2018-07-13 07:49] VITALS: BMI 34.2
--- NOTE | 2018-07-14 13:02 | OB.TRI.NOTE ---
History of Present Illness Date of Service: 07/13/18 Was patient seen by the physician?: Yes Reason For Visit: rule out active labor Date of Service: 07/13/18 Final NEVILLE: 08/06/18 Final NEVILLE Source: US <20 weeks Gestational age: 36 Weeks and 5 Days History of Present Illness: Regular contractions since previous evening. No signs of SROM Allergies No Known Allergies Allergy (Verified 07/13/18 07:52) Physical Exam General: Alert, Oriented x3, Cooperative, No apparent distress Lungs: Clear to auscultation, Normal air movement Abdomen: Soft, Non Tender, Non-Distended, Gravid, Appropriate for Gestational Age Extremities:: No edema Neurological: Neuro grossly intact TRAFFIC RATE CLERK: Normal external genitalia Estimated gestational size: Appropriate for gestational size Presentation: Cephalic Cervix Dilation (cm): 4 Station: -2 Effacement (%): 50 NST - FHR Rate Baby A Baseline: 150s Variability:: Moderate Accelerations:: 15 x 15 Decelerations:: None NST Reactive:: Yes, Appropriate for gestational age FHR Category:: Category I Uterine Activity:: q 3-6 minutes Impression/Plan No change in cervix over observation. Reassuring FHR tracing. Return with increasing symptoms of labor or signs of SROM
--- NOTE | 2018-07-14 13:06 | OB.TRI.HP_ITS ---
History of Present Illness Date of Service: 07/13/18 Was patient seen by the physician?: Yes Reason For Visit: rule out active labor Date of Service: 07/13/18 Final NEVILLE: 08/06/18 Final NEVILLE Source: US <20 weeks Gestational age: 36 Weeks and 5 Days History of Present Illness: Regular contractions since previous evening. No signs of SROM Allergies No Known Allergies Allergy (Verified 07/13/18 07:52) Physical Exam General: Alert, Oriented x3, Cooperative, No apparent distress Lungs: Clear to auscultation, Normal air movement Abdomen: Soft, Non Tender, Non-Distended, Gravid, Appropriate for Gestational Age Extremities:: No edema Neurological: Neuro grossly intact ASSEMBLY PERSON: Normal external genitalia Estimated gestational size: Appropriate for gestational size Presentation: Cephalic Cervix Dilation (cm): 4 Station: -2 Effacement (%): 50 NST - FHR Rate Baby A Baseline: 150s Variability:: Moderate Accelerations:: 15 x 15 Decelerations:: None NST Reactive:: Yes, Appropriate for gestational age FHR Category:: Category I Uterine Activity:: q 3-6 minutes Impression/Plan No change in cervix over observation. Reassuring FHR tracing. Return with increasing symptoms of labor or signs of SROM
== END 2018-07-13 09:50 | disposition home or self-care (01) ==
LOC: WPOUT 07:33 → WP 07:34
PROVIDERS: Family Provider Obstetrics & Gynecology; Visit Provider Obstetrics & Gynecology
DX: Z34.93 Encounter for supervision of normal pregnancy, unspecified, third trimester (principal)
CPT/HCPCS: 59025; 59050; 99218; G0378

== ENCOUNTER 2018-07-20 05:10 | Outpatient (CLI) | payer MEDICAID, SELFPAY ==
[2018-07-20 05:49] VITALS: BMI 36.1
[2018-07-20 07:45] LABS: Amphetamine Urine VISTA NEGATIVE (<1000 ng/mL); Barbiturate Urine VISTA NEGATIVE (< 200 ng/mL); Benzodiazepine Urine VISTA NEGATIVE (< 200 ng/mL); Cocaine Urine VISTA NEGATIVE (< 300 ng/mL); Ecstacy Urine VISTA NEGATIVE (< 500 ng/mL); Methadone Urine VISTA NEGATIVE (< 300 ng/mL); PCP Urine VISTA NEGATIVE (< 25 ng/mL); THC Urine VISTA POSITIVE (< 50 ng/mL); Vista UDS pH Range 7
--- NOTE | 2018-07-20 18:48 | OB.TRI.NOTE ---
History of Present Illness Date of Service: 07/20/18 Was patient seen by the physician?: No Reason For Visit: R/O LABOR Date of Service: 07/20/18 Final NEVILLE: 08/06/18 Final NEVILLE Source: US <20 weeks Gestational age: 37 Weeks and 4 Days History of Present Illness: Complains of contractions. No signs of SROM. Good movement. Allergies No Known Allergies Allergy (Verified 07/20/18 05:52) Laboratory Studies: Laboratory Tests 07/20/18 Range/Units 07:25 Urine Opiates Screen NEGATIVE (< 300 ng/mL) Urine Methadone Screen NEGATIVE (< 300 ng/mL) Ur Barbiturates Screen NEGATIVE (< 200 ng/mL) Ur Phencyclidine Scrn NEGATIVE (< 25 ng/mL) Ur Amphetamines Screen NEGATIVE (<1000 ng/mL) U Methamphetamin-MDMA NEGATIVE (< 500 ng/mL) U Benzodiazepines Scrn NEGATIVE (< 200 ng/mL) Urine Cocaine Screen NEGATIVE (< 300 ng/mL) U Cannabinoids Screen POSITIVE H (< 50 ng/mL) Ur Drug Screen Comment Physical Exam General: Alert, Oriented x3, Cooperative, No apparent distress Lungs: Clear to auscultation, Normal air movement Abdomen: Bowel Sounds Present, Soft, Non Tender, Non-Distended, Gravid, Appropriate for Gestational Age Extremities:: No edema Neurological: Neuro grossly intact SPORTS PHYSIOTHERAPIST: Normal external genitalia Estimated gestational size: Appropriate for gestational size Presentation: Cephalic Cervix Dilation (cm): 4 Station: -3 Effacement (%): 25 NST - FHR Rate Baby A Baseline: 140s Variability:: Moderate Accelerations:: 15 x 15 Decelerations:: None NST Reactive:: Yes, Appropriate for gestational age FHR Category:: Category I Uterine Activity:: irregular Impression/Plan No change in cervical exam since last office visit. Was observed for 2+ hours with no change in exam. WIll return with increasing intensity of contractions, bleeding, decreased movement or signs of SROM. Of note urine tox screen positive for THC today.
== END 2018-07-20 08:20 | disposition home or self-care (01) ==
LOC: WPOUT 05:45 → WP 05:45
PROVIDERS: Visit Provider Obstetrics & Gynecology
DX: O99.323 Drug use complicating pregnancy, third trimester (principal); F12.90 Cannabis use, unspecified, uncomplicated; N85.8 Other specified noninflammatory disorders of uterus; Z3A.37 37 weeks gestation of pregnancy
CPT/HCPCS: 59025; 59050; 80307; 99218; G0378

== ENCOUNTER 2018-07-27 11:57 | Inpatient (IN) | payer MEDICAID, SELFPAY ==
[2018-07-27 12:46] VITALS: BMI 34.9
[2018-07-27] MEDS: Lactated Ringers 1,000 ML 50 ML IV (13:00)
[2018-07-27] MEDS: Oxytocin 30 units/NS 500 ml 30 UNITS/500 ML IV.SOLN IV (13:07)
[2018-07-27 13:21] LABS: Absolute Lymphocyte Count 3.08 X10^3/ul (0.83-4.51); Absolute Neutrophil Count 7.3 X10^3/uL (2.0-7.7); Basophil# 0.01 X10^3/uL; Basophil% 0.1 % (0-1); Eosinophil# 0.15 X10^3/uL; Eosinophils% 1.3 % (0-5); Hematocrit 36.7 % (37-47); Hemoglobin 11.9 g/dl (12.0-15.0); Lymphocyte # 3.08 X10^3/ul (4.0); Lymphocyte % 27.5 % (19-41); Mean Corp Hgb Conc 32.4 g/gl (32-36); Mean Corpuscular Hgb 28.8 pg (27.0-32.0); Mean Corpuscular Volume 88.9 fL (81-99); Monocyte# 0.61 X10^3/uL; Monocyte% 5.4 % (0-10); Neutrophil # 7.33 X10^3/uL (2.7-7.7); Neutrophil % 65.5 % (47-70); Platelet Count 234 K/mm3 (150-450); RBC Distribution Width SD 41.6 fl (35.1-43.9); Red Blood Count 4.13 M/mm3 (4.2-5.4); White Blood Count 11.2 K/mm3 (4.4-11.0)
[2018-07-27 13:22] LABS: POSITIVE COUNT NO; POSITIVE DIFFERENTIAL NO; POSITIVE MORPHOLOGY NO
[2018-07-27] MEDS: Oxytocin 30 units/NS 500 ml 30 UNITS/500 ML IV.SOLN 334 UNITS IV (16:54)
--- NOTE | 2018-07-27 17:06 | PCM.OPRPT ---
Vaginal Delivery Maternal Presentation: Elective Induction 39 weeks ega admitted for elective induction of labor Method of Induction: Pitocin Amniotic Membrane Rupture Type: Artificial Rupture of Membrane time: 1245 Amniotic Fluid Description: Clear Final NEVILLE: 08/03/18 Final NEVILLE Source: US <20 weeks Gestational age: 39 Weeks and 0 Days Date of Procedure: 07/27/18 Pre-Operative Diagnosis: Labor Post-Operative Diagnosis: same Surgery/ Procedure Performed: Spontaneous Vaginal Delivery Type of Anesthesia: None Description of Procedure: Admitted at 39 weeks. Cervix 4-5 cm on admission. AROM was performed. Pitocin started and over 4 hours progressed to FD then pushed for one effort to deliver a live female without complication. Delayed cord clamping was employed. The cord was then clamped and cut. The placenta delivered spontaneously intact with a centrally located 3VC. The uterus contracted well. The vagina, cervix, and perineum were intact. Presentation: Vertex Placental Delivery Description: Spontaneous Placenta Disposition: [facility] Percentage of Placenta Abruption: 0 Cord Vessel Description: 3 Vessels Nuchal Cord Compression: Without compression Cord Entanglement: None Estimated Blood Loss: 200cc Infant A gender: Female (1 minute): 8 (5 minute): 9 Episiotomy Description: None Laceration: None Medications given after delivery: IV Pitocin Complications: None
--- NOTE | 2018-07-27 17:12 | DCINST_ITS ---
Discharge Diet: No Restrictions Discharge Activity: Return to Normal Activity, May Drive, May Shower Return to work on:: 09/09/18 May resume sexual activity in: 4-6 weeks Call your doctor if your incision/area has: Sudden Increased Bleeding, Increased Pain/ Swelling, Foul Smelling Discharge Call your doctor if you observe: Fever of 101 or Higher, Inability to urinate, Inability to have a bowel movement, Using more than one pad per hour, Shortness of breath, Chest pain, Calf discomfort, Uncontrolled pain Cleanse incision/area with: Soap & Water Additional Instructions: If you experience any of the following, contact your healthcare provider. * Bleeding that soaks a pad every hour for 2 hours * Fever 100.4 or higher * Unrelieved incision or abdominal pain * Swelling, redness, discharge or bleeding from your incision or episiotomy site * Your incision begins to separate * Problems urinating (including inability to urinate or burning while urinating). * Visual changes * Severe headache * Flu-like symptoms * Pain or redness in one of both of your breasts * Pain, warmth, tenderness or swelling in your legs, especially the calf area * Frequent nausea and vomiting * Symptoms of depression or anxiety If you experience any of the following, call 911 or go to the nearest Emergency Room. * Chest pain * Problems breathing * Seizure activity * Partial or complete paralysis of a body part, slurred speech, weakness or drooping of the face, or a sudden inability to walk or hold your balance Allergies/Adverse Reactions: Allergies No Known Allergies Allergy (Verified 07/20/18 05:52) Medications to take at Discharge Pnv No.103/Folic/Om3s/Fish Oil [ Gummies] 1 each PO DAILY 05/25/18 Ibuprofen [Motrin] 600 mg PO Q6H PRN PRN #30 tab 07/27/18 Ondansetron HCl 4 mg PO Q4H PRN PRN 07/27/18 Pantoprazole Sodium [Protonix] 40 mg PO DAILY 07/27/18 The following prescriptions were given: Ibuprofen [Motrin] 600 mg PO Q6H PRN PRN #30 tab PRN Reason: pain or cramping Please Follow Up With: Refugio Murphy MD When: one week Primary Care Physician: Care Physician,No Primary [Primary Care Provider] - Test Results: Test results from this visit will be discussed in further detail at your follow- up appointment, if applicable. Proposed Discharge Date: 07/29/18
[2018-07-27] MEDS: Oxytocin 30 units/NS 500 ml 30 UNITS/500 ML IV.SOLN 167 UNITS IV (17:24)
[2018-07-27] MEDS: Ibuprofen 600 MG Tablet PO (17:44)
[2018-07-27 20:20] VITALS: BP 123/58; PULSE 63; RESP 16; TEMP 37; O2SAT 98
[2018-07-28 00:20] VITALS: BP 120/75; PULSE 60; RESP 18; TEMP 36.5; O2SAT 98
[2018-07-28] MEDS: Ibuprofen 600 MG Tablet PO ×2 (04:52→12:31)
[2018-07-28 05:24] VITALS: BP 133/90; PULSE 90; RESP 18; TEMP 36.8; O2SAT 98
[2018-07-28 05:37] LABS: Hematocrit 34.3 % (37-47); Hemoglobin 11.3 g/dl (12.0-15.0); Mean Corp Hgb Conc 32.9 g/gl (32-36); Mean Corpuscular Hgb 29.1 pg (27.0-32.0); Mean Corpuscular Volume 88.4 fL (81-99); Mean Platelet Vol. 10.9 fl (6.2-12.0); Platelet Count 208 K/mm3 (150-450); RBC Distribution Width SD 41.1 fl (35.1-43.9); Red Blood Count 3.88 M/mm3 (4.2-5.4); White Blood Count 12.8 K/mm3 (4.4-11.0)
[2018-07-28 06:04] LABS: Scan Indicated on CBC? Y/N NO
--- NOTE | 2018-07-28 08:09 | PN.OBGYN_ITS ---
Subjective: Some cramping with breast feeding. Bleeding appropriate. Objective: Afeb VSS Hgb stable - Physical Exam General: Alert, Oriented x3, Cooperative, No apparent distress Lungs: Clear to auscultation, Normal air movement Cardiovascular: Regular rate, Regular Rhythm Abdomen: Soft, Non Tender, Non-Distended, - - Fundus firm, nontender Extremities: No edema Skin: No rashes Neurological: Neuro grossly intact Psych/Mental Status: Normal Affect Comment: Lochia appropriate Vital Signs Temp Pulse Resp BP Pulse Ox 98.3 F 90 18 133/90 H 98 07/28/18 05:24 07/28/18 05:24 07/28/18 05:24 07/28/18 05:24 07/28/18 05:24 Oxygen Delivery Method Room Air Weight: 190 lb 14.725 oz Body Mass Index (BMI) 34.9 Intake and Output for Last 24 Hours 07/26/18 07/27/18 07/28/18 23:59 23:59 23:59 Intake Total 200 / 200 Output Total 500 / 500 Balance -300 / -300 Laboratory Tests Past 24 Hrs 07/27/18 07/27/18 07/28/18 12:40 12:40 05:02 WBC 11.2 H 12.8 H RBC 4.13 L 3.88 L Hgb 11.9 L 11.3 L Hct 36.7 L 34.3 L MCV 88.9 88.4 MCH 28.8 29.1 MCHC 32.4 32.9 RDW 13.0 13.0 RDW Differential 41.6 41.1 Plt Count 234 208 MPV 11.0 10.9 Immature Gran % (Auto) 0.200 Neut % (Auto) 65.5 Lymph % (Auto) 27.5 [place] % (Auto) 5.4 Eos % (Auto) 1.3 Baso % (Auto) 0.1 Absolute Neuts (auto) 7.3 Absolute Lymphs (auto) 3.08 Total Counted Not Reportable Blood Type O POSITIVE Antibody Screen NEGATIVE Medical Necessity - Tobacco Use Smoking Status: Current every day smoker Assessment/Plan Doing well on PP day#1. Would like discharge later today if baby is cleared. Discharge instructions and warnings given.
--- NOTE | 2018-07-28 08:11 | DS.PCM_ITS ---
Discharge Date and Diagnosis Date of Admission: 07/27/18 Date of Discharge: 07/28/18 - Primary Discharge Diagnosis S/P Hospital Course and Treatment Operations: None Procedures: - - Pitocin induction, Summary of Care Provided: The patient is a 27 year old F [admitted for elective induction of labor at 39 weeks. Pitocin induction resulted in uncomplicated vaginal delivery. Post part um course unremarkable. Discharged home on PP day#1.] - Physical Exam Vital Signs Temp Pulse Resp BP Pulse Ox 98.3 F 90 18 133/90 H 98 07/28/18 05:24 07/28/18 05:24 07/28/18 05:24 07/28/18 05:24 07/28/18 05:24 Oxygen Delivery Method Room Air Weight: 190 lb 14.725 oz Body Mass Index (BMI) 34.9 Intake and Output for Last 24 Hours 07/26/18 07/27/18 07/28/18 23:59 23:59 23:59 Intake Total 200 / 200 Output Total 500 / 500 Balance -300 / -300 Laboratory Tests Past 24 Hrs 07/27/18 07/27/18 07/28/18 12:40 12:40 05:02 WBC 11.2 H 12.8 H RBC 4.13 L 3.88 L Hgb 11.9 L 11.3 L Hct 36.7 L 34.3 L MCV 88.9 88.4 MCH 28.8 29.1 MCHC 32.4 32.9 RDW 13.0 13.0 RDW Differential 41.6 41.1 Plt Count 234 208 MPV 11.0 10.9 Immature Gran % (Auto) 0.200 Neut % (Auto) 65.5 Lymph % (Auto) 27.5 [place] % (Auto) 5.4 Eos % (Auto) 1.3 Baso % (Auto) 0.1 Absolute Neuts (auto) 7.3 Absolute Lymphs (auto) 3.08 Total Counted Not Reportable Blood Type O POSITIVE Antibody Screen NEGATIVE Discharge Diet: No Restrictions Discharge Activity: Return to Normal Activity, May Drive, May Shower Return to work on:: 09/09/18 May resume sexual activity in: 4-6 weeks Call your doctor if your incision/area has: Sudden Increased Bleeding, Increased Pain/ Swelling, Foul Smelling Discharge Call your doctor if you observe: Fever of 101 or Higher, Inability to urinate, Inability to have a bowel movement, Using more than one pad per hour, Shortness of breath, Chest pain, Calf discomfort, Uncontrolled pain Cleanse incision/area with: Soap & Water Home Medications: Medications to take at Discharge Pnv No.103/Folic/Om3s/Fish Oil [ Gummies] 1 each PO DAILY 05/25/18 Ibuprofen [Motrin] 600 mg PO Q6H PRN PRN #30 tab 07/27/18 Ondansetron HCl 4 mg PO Q4H PRN PRN 07/27/18 Pantoprazole Sodium [Protonix] 40 mg PO DAILY 07/27/18 Following Prescrptions Were Given to Patient: Ibuprofen [Motrin] 600 mg PO Q6H PRN PRN #30 tab PRN Reason: pain or cramping Primary Care Physician: Care Physician,No Primary [Primary Care Provider] - Please Follow Up With: Refugio Murphy MD When: 6 weeks Disposition: Home Minutes spent on discharge:: 15 Patient Condition:: Good Medical Necessity - Tobacco Use Smoking Status: Current every day smoker Meaningful Use Info Meaningful Use Diagnoses (Choose all that apply): None applicable
[2018-07-28 08:33] VITALS: BP 117/83; PULSE 72; RESP 18; TEMP 36.3; O2SAT 96
[2018-07-28] MEDS: Acetaminophen 500 MG Tablet 1000 MG PO (08:38)
--- NOTE | 2018-07-28 11:45 | CASEMGMT ---
Social Work Assessment Labor and Delivery Unit Date of Referral: 07/28/18 Time of Referral: 07:49 Referred By: DR. RUBIO Date of Intervention: 07/28/18 Time of Intervention: 11:45A Reason for Referral: SUBSTANCE ABUSE History obtained from: MOTHER OF BABY (MOB), MEDICAL CHART, AND NURSING Household composition: MOB REPORTS HOUSEHOLD CONSISTS OF FATHER OF BABY (FOB) IRENE BAUM, HIS BROTHER, NICOLE (7) AND LORENZO (5) Patient's parent/guardian status: MOB AND FOB ARE NOT Educational Status: MOB REPORTS OBTAINED HER G.E.D. Financial Status: MOB REPORTS WAS WORKING AT [employer] BEFORE GOING ON MATERNITY LEAVE. MOB PLANS TO RETURN TO WORK. FOB WORKS ON A DAIRY FARM. Infant Supplies: MOB REPORTS HAS ALL NEEDS MET FOR BABY (CAR SEAT, CRIB, DIAPERS, WIPES, CLOTHES) MOB REPORTS HAD ASSISTANCE WITH GETTING NEEDED SUPPLIES THROUGH [employer]. Childcare/Caregiver(s): MOB STATES FOB, FOB'S BROTHER, AND SELF WILL BE MAIN CAREGIVERS Transportation: MOB DENIES ANY ISSUES WITH TRANSPORTATION. Programs/Agencies Involved: [facility], [facility] [place], [place] [facility], AND REQUESTS REFERRAL TO HELP ME GROW. Children Services/Legal Issues: MOB REPORTS [facility] INVOLVEMENT BACK IN 2012 Behavioral Health Issues: Mental Health History: MOB DENIES ANY HX OF MENTAL HEALTH Substance Use History: MOB ADMITS TO ALCOHOL USE DURING 1ST TRIMESTER- SHE DIDN'T KNOW SHE WAS , AND EARLY ON IN 2ND TRIMESTER. MOB ADMITS TO MARIJUANA USE DURING AND STATES LAST USE WAS 3-3 1/2 WEEKS AGO. MOB STATES IS A PACK A DAY SMOKER. Drug Screens: BABY'S MECONIUM SCREEN IS PENDING/ URINE NEGATIVE. Support Systems: MOB STATES GOOD SUPPORT FROM FOMoriah AND HIS BROTHER. Depression/Shaken Baby/Safe Sleeping MOB EDUCATED AND VERBALIZED UNDERSTANDING. MOB PROVIDED WITH RESOURCES ON PPD. ASSESSMENT: MOB SITTING IN BED ALONE HOLDING BABY GIRLMUMTAZ UPON ENTERING ROOM. INTRODUCED ROLE AND REASON FOR REFERRAL. MOB DISCUSSED SUBSTANCE USE DURING STATING MARIJUANA HELPED WITH THE NAUSEA. MOB STATES DID CONSUME ALCOHOL DURING 1ST TRIMESTER AND BEGINNING OF 2ND TRIMESTER. MOB STATES WAS INFORMED BY NURSING BABY'S URINE TESTED NEGATIVE. MOB REPORTS MECONIUM WAS COLLECTED. MOB VERBALIZED UNDERSTANDING OF REASON FOR CHILDREN SERVICES REPORT. MOB CALM AND COOPERATIVE THROUGHOUT ASSESSMENT. MOB DENIES ANY HX OF MENTAL HEALTH AND DENIES ANY THOUGHTS OF SELF HARM. MOB HOPING FOR DISCHARGE THIS DAY AND STATES HAS ALL NEEDS MET FOR BABY. DISCUSSED HELP ME GROW AND MOB REQUESTING REFERRAL. REFERRAL SECURELY SUBMITTED ONLINE THIS DAY. UPDATED NURSING ON THIS WORKER'S ASSESSMENT. Safe Plan of Care for infant related to substance use: MOB STATES HAS NEVER SMOKED MARIJUANA IN FRONT OF CHILDREN AND IF SHE DOES CONSUME ALCOHOL, SHE DOES SO WHEN THE CHILDREN ARE IN BED. MOB AWARE A REPORT WILL BE MADE TO CHILDREN SERVICES D/T USE DURING . PLAN: HOME WITH RESOURCES PROVIDED, REFERRAL TO HELP ME GROW AND REPORT TO CHILDREN SERVICES. No other services requested or indicated. -Leora Thomas, SEAMAN OFFICER, HAIRSPRING SETTER
[2018-07-28 11:55] VITALS: BP 122/71; PULSE 68; RESP 18; TEMP 36.7; O2SAT 98
[2018-07-28 16:49] VITALS: BP 128/74; PULSE 88; RESP 18; TEMP 36.6; O2SAT 97
--- NOTE | 2018-07-29 13:54 | CASEMGMT ---
SOCIAL WORK CALL TO [facility], REPORT MADE TO LORI REGARDING CONCERNS WITH MOB'S SUBSTANCE USE DURING . INFORMED MECONIUM RESULTS NOT BACK AT THIS TIME. CARRIE LOVE, RESTAURANT FRONT MANAGER, DIRECTOR OF INTEGRATED MARKETING.
== END 2018-07-28 18:50 | disposition home or self-care (01) | DRG 560 ==
PROVIDERS: Admitting Provider Obstetrics & Gynecology; Referring Provider Obstetrics & Gynecology; Visit Provider Obstetrics & Gynecology
DX: O75.89 Other specified complications of labor and delivery (principal); O26.23 Pregnancy care for patient with recurrent pregnancy loss, third trimester; O99.334 Smoking (tobacco) complicating childbirth; O24.12 Pre-existing type 2 diabetes mellitus, in childbirth; E11.9 Type 2 diabetes mellitus without complications; Z3A.39 39 weeks gestation of pregnancy; Z37.0 Single live birth
CPT/HCPCS: 59050; 85025; 85027; 86850; 86900; 99218; J7120; G0378

== ENCOUNTER → 2018-08-29 11:10 | Outpatient (CLI) | payer MEDICAID, SELFPAY ==
[2018-08-29 13:51] LABS: Internal QC Validated? YES +Cl - CLEAR BKGD; Pregnancy, Serum, hCG Quali. NEGATIVE Negative
== END ==
PROVIDERS: Visit Provider Obstetrics & Gynecology
DX: Z30.8 Encounter for other contraceptive management (principal)
CPT/HCPCS: 36415; 84144; 84703

== ENCOUNTER → 2018-08-31 15:17 | Outpatient (CLI) | payer MEDICAID, SELFPAY ==
[2018-08-31 19:47] LABS: Chlamydia Trachomatis by PCR Negative (Negative); Neisserai gonorrhoeae by PCR Negative (Negative); Probe Check PASS; Sample Adequacy Control PASS; Specimen Processing Control PASS
== END ==
PROVIDERS: Visit Provider Obstetrics & Gynecology
DX: Z30.430 Encounter for insertion of intrauterine contraceptive device (principal); Z11.3 Encounter for screening for infections with a predominantly sexual mode of transmission
CPT/HCPCS: 87491; 87591

== ENCOUNTER → 2018-09-27 | Outpatient (CLI) | payer MEDICAID, SELFPAY ==
[2018-10-03 17:36] LABS: HPV Reflexed? NOT INDICATED
== END | disposition home or self-care (01) ==
LOC: LABSPEC 13:35
PROVIDERS: Visit Provider Obstetrics & Gynecology
DX: Z12.4 Encounter for screening for malignant neoplasm of cervix (principal)
CPT/HCPCS: 88175; G0145

== ENCOUNTER → 2022-09-08 | Outpatient (CLI) | payer MEDICAID, SELFPAY ==
[2022-09-08 13:19] LABS: HIV - WCH Non-Reactive (Nonreactive); Syphilis Antibodies Non-reactive
[2022-09-09 07:08] LABS: HEPATITIS B SURFACE AG Negative (Negative); Hep B Surface Antibodies Non Reactive (.); Hepatitis B Core Ab Total Negative (Negative)
[2022-09-16 14:10] LABS: HPV APTIMA, High Risk Negative (Negative)
== END | disposition home or self-care (01) ==
LOC: WOBLAB 11:07
PROVIDERS: Visit Provider Nurse Practitioner Women's Health
DX: Z01.419 Encounter for gynecological examination (general) (routine) without abnormal findings (principal); Z12.4 Encounter for screening for malignant neoplasm of cervix
CPT/HCPCS: 36415; 86703; 86704; 86705; 86706; 86707; 86780; 86803; 87340; 87350; 87624; 88175; G0145

== ENCOUNTER 2022-10-23 19:39 | Emergency (ER) | payer MEDICAID, SELFPAY ==
[2022-10-23 19:40] VITALS: BP 118/77; PULSE 78; RESP 16; TEMP 36.4; O2SAT 99; BMI 34.0
[2022-10-23 20:27] LABS: Red Blood Cells-Urine 0 SEEN /hpf (0-5); White Blood Cells 0 SEEN /hpf (0-5)
[2022-10-23] MEDS: Morphine 4 MG/ML Syringe IV (20:29)
[2022-10-23] MEDS: Ondansetron 4 MG/2 ML Vial IV (20:29)
[2022-10-23] MEDS: 0.9% Normal Saline 1,000 ML 1000 ML IV (20:29)
[2022-10-23 20:44] LABS: Absolute Lymphocyte Count 3.92 X10^3/uL (0.83-4.51); Absolute Neutrophil Count 7.3 X10^3/uL (2.0-7.7); Basophil# 0.03 X10^3/uL; Basophil% 0.2 % (0-1); Eosinophil# 0.44 X10^3/uL; Eosinophils% 3.5 % (0-5); Lymphocyte # 3.92 X10^3/ul (0.83-4.51); Lymphocyte % 31.5 % (19-41); Mean Corp Hgb Conc 33.3 g/dL (32-36); Mean Corpuscular Hgb 30.4 pg (27.0-32.0); Mean Corpuscular Volume 91.1 fL (81-99); Mean Platelet Vol. 10.5 fl (6.2-12.0); Monocyte# 0.78 X10^3/uL; Monocyte% 6.3 % (0-10); NRBC Flagged by Analyzer 0 % (0-5); Neutrophil # 7.27 X10^3/uL (2.7-7.7); Neutrophil % 58.3 % (47-70); Platelet Count 249 K/mm3 (150-450); RBC Distribution Width CV 12.6 % (11.6-14.6); RBC Distribution Width SD 41.7 fl (35.1-43.9); Red Blood Count 4.61 M/mm3 (4.2-5.4); White Blood Count 12.5 K/mm3 (4.4-11.0)
[2022-10-23 20:53] LABS: Color, Urine Yellow (Yellow); Glucose, Dipstick Normal (Normal); Ketone-Dipstick 5 mg/dl (Negative); Leukocyte Esterase-Dipstick 25 /ul (Negative); Nitrite-Dipstick Negative (Negative); Occult Blood-Urine Negative /ul (Negative); Protein-Dipstick 30 mg/dl (Negative); Specific Gravity, Urine 1.025 (1.002-1.030); Urine Bilirubin Dipstick Negative (Negative); Urine Clarity Clear (Clear); Urine Urobilinogen 1 mg/dl (Normal)
[2022-10-23 20:55] LABS: Internal QC Validated? YES +Cl - CLEAR BKGD; Pregnancy, Serum, hCG Quali. NEGATIVE Negative
[2022-10-23 20:58] LABS: Bacteria RARE /hpf (None Seen); Mucous, Urine RARE /hpf (<or=2+)
[2022-10-23 20:59] LABS: Squamous Epithelial Cells - UA 0-5 SEEN /hpf (5-10)
[2022-10-23 21:00] LABS: AST(SGOT) 14 U/L (15-37); Alanine Aminotransfer ALT/SGPT 23 U/L (13-56); Albumin, Serum 3.4 g/dL (3.2-5.0); Alkaline Phosphatase 86 U/L (45-117); Anion Gap 5 (5-15); BUN 14 mg/dL (7-18); BUN/Creat Ratio 20.7 RATIO (10-20); Calcium,Total 9.4 mg/dL (8.5-10.1); Chloride 109 mmol/L (98-107); Creatinine, Serum 0.68 mg/dL (0.55-1.02); EST Glomerular Filtration Rate 107 mL/min (>60); Est Glom Filt Rate - Afr Amer 129 mL/min (>60); Estimated Creatinine Clearance 93.07 ml/min; Globulin 3.3 g/dL (2.2-4.2); Glucose 79 mg/dL (74-106); Lipase 36 U/L (13-75); Potassium 3.9 mmol/L (3.5-5.1); Protein, Total 6.7 g/dL (6.4-8.2); Sodium Level 141 mmol/L (136-145)
--- NOTE | 2022-10-23 21:58 | EDS_ITS ---
HPI HPI - GI History of Present Illness Chief Complaint: Abd Pain Narrative Narrative: 32-year-old female presenting with nausea, vomiting, abdominal cramping. She states she thinks she ate something bad. She states she ate chicken that was left out for about 6 hours. No fevers or chills. No diarrhea. No constipation. Patient does not have any sick contacts that she knows of. She is not concerned for because she is on control. PFSH PFSH Medical History no medical history Home Medications 103-folic acid 400 mcg-omeg3 32.5 mg-dha-fish oil chew tablet ( with DHA and Folic Acid) 1 ea PO DAILY 05/25/18 [History Last Taken 07/25/18] ibuprofen 600 mg tablet 600 mg PO Q6H PRN PRN pain or cramping #30 tabs 07/27/18 [Rx Last Taken Unknown] ondansetron HCl 4 mg tablet 4 mg PO Q4H PRN PRN Nausea 07/27/18 [History Last Taken Unknown] pantoprazole 40 mg tablet,delayed release 40 mg PO DAILY acid reflux 07/27/18 [History Last Taken 07/27/18] norethindrone (contraceptive) 0.35 mg tablet (Jencycla) 0.35 mg PO DAILY 10/23/22 [History Last Taken Unknown] ondansetron 4 mg disintegrating tablet 4 mg PO Q8H PRN PRN Nausea #14 tabs 10/23/22 [Rx Last Taken Unknown] Allergy/AdvReac Type Severity Reaction Status Date / Time No Known Allergies Allergy Verified 10/23/22 19:43 Social History Smoking Status: Current every day smoker tobacco type: cigarettes ROS ROS ED Constitutional Constitutional ED: Denies chills, fever(s) or sweats Eyes Eyes: Denies blurry vision or change in vision ENT ENT ED: Denies ear pain or sore throat Cardiovascular Cardiovascular: Denies chest pain, palpitations or racing heartbeat Respiratory/Chest Respiratory/Chest: Denies cough, dyspnea or sputum Gastrointestinal Gastrointestinal: Reports abdominal pain, nausea and vomiting; Denies constipation or diarrhea Genitourinary Genitourinary ED: Denies dysuria, hematuria or urinary frequency Musculoskeletal Musculoskeletal: Denies arthralgias, myalgias or neck pain Integumentary Denies abscess, Abrasions or rash Neurologic Neurologic: Denies headache(s), paresthesias or weakness Psychiatric Psychiatric: Denies anxiety, depression, suicidal ideation or suicidal thoughts Endocrine Endocrinology: Denies polydipsia or polyuria EXAM Physical Exam Const Vital Signs: 10/23/22 19:40 Temperature 97.6 F L Temperature Source Temporal Pulse Rate 78 Respiratory Rate 16 Blood Pressure 118/77 Blood Pressure Mean 90 Pulse Ox 99 Oxygen Delivery Method Room Air Positive well nourished General Appearance ED: NAD; Negative for pallor HEENT Reports moist mucous membranes normocephalic Eyes PERRL and EOMs intact bilaterally Resp normal respiratory effort and clear to auscultation bilaterally Cardio regular rate and regular rhythm GI non-tender, non-distended and no masses Back/Spine no CVA tenderness Neuro CN's II-XII intact bilaterally and moves all extremities Sensorium / Orientation: alert Psych mental status grossly normal Skin General Skin Exam: Negative for jaundice or pallor MDM MDM MDM Narrative Medical decision making narrative: Patient with abdominal cramping. Differential includes colitis, diverticulitis, dehydration, electrolyte abnormalities, food poisoning. Patient's exam is benign. Patient medicated with morphine, Zofran, 1 L normal saline. CBC obtained shows a white blood cell count of 12.5. Hemoglobin stable. Platelets normal. Renal function electrolytes within normal limits. LFTs are normal. Serum test negative on reevaluation the patient states her pain is gone and she feels much better. I will give her prescription for Zofran for home. All questions were answered patient discharged home in stable condition. Impression: 1. Nausea/vomiting 2. Abdominal Lab Data Labs: Laboratory Results - last 24 hr 10/23/22 20:25 WBC 12.5 H RBC 4.61 Hgb 14.0 Hct 42.0 MCV 91.1 MCH 30.4 MCHC 33.3 RDW Std Deviation 41.7 RDW Coeff of Tank 12.6 Plt Count 249 MPV 10.5 Immature Gran % (Auto) 0.200 Neut % (Auto) 58.3 Lymph % (Auto) 31.5 [place] % (Auto) 6.3 Eos % (Auto) 3.5 Baso % (Auto) 0.2 Absolute Neuts (auto) 7.3 Absolute Lymphs (auto) 3.92 Nucleated RBC % 0 Sodium 141 Potassium 3.9 Chloride 109 H Carbon Dioxide 27.0 Anion Gap 5 BUN 14 Creatinine 0.68 Estim Creat Clear Calc 93.07 Est GFR (MDRD) Af Amer 129 Est GFR (MDRD) Non-Af 107 BUN/Creatinine Ratio 20.7 H Glucose 79 Calcium 9.4 Total Bilirubin 0.30 AST 14 L ALT 23 Alkaline Phosphatase 86 Total Protein 6.7 Albumin 3.4 Globulin 3.3 Albumin/Globulin Ratio 1.0 Lipase 36 Serum , Qual NEGATIVE Urine Color Yellow Urine Clarity Clear Urine pH 6.0 Ur Specific [place] 1.025 Urine Protein 30 H Urine Glucose (UA) Normal Urine Ketones 5 H Urine Occult Blood Negative Urine Nitrite Negative Urine Bilirubin Negative Urine Urobilinogen 1 H Ur Leukocyte Esterase 25 H Urine RBC 0 SEEN Urine WBC 0 SEEN Ur Squamous Epith Cells 0-5 SEEN Urine Bacteria RARE Urine Mucus RARE Discharge Plan Triage Chief Complaint: Abd Pain ED Provider: Matheus Riley Dx/Rx/DC Orders Instructions: ED Abdominal Pain Unkn Cause Fem, ED Vomiting (Child) Prescriptions: New ondansetron 4 mg tablet,disintegrating 4 mg PO Q8H PRN PRN (Reason: Nausea) Qty: 14 0RF No Action PNV 426-fcehz-jevop-3-fish oil [ with DHA-Folic Acid] 1 EACH tablet,chewable 1 ea PO DAILY ondansetron HCl 4 MG tablet 4 mg PO Q4H PRN PRN (Reason: Nausea) Patient Comments: take 1 tablet by mouth every 6 hours if needed for nausea pantoprazole 40 MG tablet 40 mg PO DAILY ibuprofen 600 MG tablet 600 mg PO Q6H PRN PRN (Reason: pain or cramping) Qty: 30 1RF norethindrone (contraceptive) [Jencycla] 0.35 mg tablet 0.35 mg PO DAILY Primary Care Provider: Care Physician,No Primary Referrals: Care Physician,No Primary [Primary Care Provider] - Disposition Disposition: Home, Self Care
--- NOTE | 2022-10-23 22:28 | ED.RN ---
pt left without DC paperwork attempted to call with no answer and no option for voicemail for pt prescription. DC paperwork left with storage battery charger.
== END 2022-10-23 22:31 | disposition home or self-care (01) ==
PROVIDERS: Emergency Provider Student in an Organized Health Care Education/Training Program; Visit Provider Student in an Organized Health Care Education/Training Program
DX: R11.2 Nausea with vomiting, unspecified (principal); R10.9 Unspecified abdominal pain; F17.210 Nicotine dependence, cigarettes, uncomplicated; Z79.899 Other long term (current) drug therapy
CPT/HCPCS: 80053; 81001; 83690; 84703; 85025; 96361; 96374; 96375; 99283; J7030; J2405

== ENCOUNTER 2023-01-05 21:50 | Emergency (ER) | payer MEDICAID, SELFPAY ==
[2023-01-05 21:51] VITALS: BP 115/80; PULSE 75; RESP 15; TEMP 36.6; O2SAT 100; BMI 36.2
--- NOTE | 2023-01-05 23:28 | RAD_ITS ---
INDICATION: cough EXAMINATION/TECHNIQUE: X-RAY - XR Chest 1 View COMPARISON: No relevant prior comparison study available FINDINGS: LINES/DEVICES: None. LUNGS: No consolidation, edema or effusion. No pneumothorax. MEDIASTINUM AND CARDIOVASCULAR STRUCTURES: Cardiac silhouette not enlarged. Central airways and mediastinal contour are unremarkable. BONES AND SOFT TISSUES: Unremarkable. RAD/Chest 1 View (Portable) IMPRESSION: No radiographic evidence of acute cardiopulmonary disease. Electronically Signed: Yuki Robles MD at 0:09 EDT ,
[2023-01-05 23:58] LABS: Internal QC Validated? YES +Cl - CLEAR BKGD; Pregnancy, Urine Negative Negative
[2023-01-06 01:02] VITALS: BP 122/84; PULSE 66; RESP 16; O2SAT 100
--- NOTE | 2023-01-06 01:02 | EDS_ITS ---
HPI History of Present Illness Chief Complaint: General Illness Informant: patient Narrative Narrative: Patient is a 32-year-old female with past medical history of smoking who states that for the past 3 to 4 days she has had congestion drainage cough with headach e fatigue and muscle aches. She states she took a home COVID test which was positive but her boss reportedly wanted a confirmatory test from an institution and therefore she presents at this time. PFSH PFSH Medical History no medical history Home Medications 103-folic acid 400 mcg-omeg3 32.5 mg-dha-fish oil chew tablet ( with DHA and Folic Acid) 1 ea PO DAILY 05/25/18 [History Last Taken 07/25/18] ibuprofen 600 mg tablet 600 mg PO Q6H PRN PRN pain or cramping #30 tabs 07/27/18 [Rx Last Taken Unknown] ondansetron HCl 4 mg tablet 4 mg PO Q4H PRN PRN Nausea 07/27/18 [History Last Taken Unknown] pantoprazole 40 mg tablet,delayed release 40 mg PO DAILY acid reflux 07/27/18 [History Last Taken 07/27/18] norethindrone (contraceptive) 0.35 mg tablet (Jencycla) 0.35 mg PO DAILY 10/23/22 [History Last Taken Unknown] ondansetron 4 mg disintegrating tablet 4 mg PO Q8H PRN PRN Nausea #14 tabs 10/23/22 [Rx Last Taken Unknown] albuterol sulfate 90 mcg/actuation aerosol inhaler (Ventolin HFA) 1 - 2 puff inhalation Q4H PRN PRN SOB/Wheezing #1 device 01/06/23 [Rx Last Taken Unknown] azelastine 137 mcg (0.1 %) nasal spray aerosol 2 spray intranasal BID #30 mL 01/06/23 [Rx Last Taken Unknown] hydrocodone-homatropine 5 mg-1.5 mg/5 mL (5 mL) oral syrup (Hycodan) 5 ml PO 4X/DAY PRN PRN cough 7 days #140 mL 01/06/23 [Rx Last Taken Unknown] prednisone 20 mg tablet 40 mg (2 x 20 mg) PO DAILY 7 days #14 tabs 01/06/23 [Rx Last Taken Unknown] Allergy/AdvReac Type Severity Reaction Status Date / Time No Known Allergies Allergy Verified 01/05/23 21:55 Social History Smoking Status: Current every day smoker tobacco type: cigarettes ROS ROS ED Constitutional Constitutional ED: Denies chills or fever(s) Eyes Eyes: Denies change in vision ENT ENT ED: Reports rhinorrhea and sore throat Cardiovascular Cardiovascular: Denies chest pain Respiratory/Chest Respiratory/Chest: Reports cough and dyspnea Gastrointestinal Gastrointestinal: Reports nausea; Denies abdominal pain, diarrhea or vomiting Genitourinary Genitourinary ED: Denies dysuria Musculoskeletal Musculoskeletal: Reports myalgias Integumentary Denies rash Neurologic Neurologic: Reports headache(s) Hematologic/Lymphatic Hematologic/Lymphatic: Denies easy bleeding or easy bruising EXAM Physical Exam Const Vital Signs: 01/05/23 21:51 01/05/23 22:44 01/06/23 01:02 Temperature 97.9 F Temperature Source Temporal Pulse Rate 75 66 Respiratory Rate 15 16 Respiratory Effort Short of Breath Respiratory Pattern Normal Blood Pressure 115/80 122/84 H Blood Pressure Mean 91 Pulse Ox 100 100 Oxygen Delivery Method Room Air Positive well nourished, well developed and obese General Appearance ED: well developed Nutritional Appearance: obese HEENT HEENT Narrative: Nasal mucosa is hyperemic and boggy with enlarged inferior nasal turbinates There is cobblestoning the posterior pharynx consistent with sinus drainage without airway edema or compromise Eyes PERRL and EOMs intact bilaterally General Eye ED: Negative for pale conjunctiva or scleral icterus Neck supple and no JVD Neck Narrative: No nuchal rigidity or meningeal signs noted Resp normal respiratory effort Resp Narrative: Breath sounds are diminished throughout with faint expiratory wheeze in the bilateral bases. No nasal flaring retractions tachypnea or accessory muscle use Cardio regular rate and regular rhythm Extremity normal to inspection Extremity Narrative: No asymmetric edema no pitting edema negative Homans' sign bilaterally Neuro oriented x3, CN's II-XII intact bilaterally and no sensory deficits noted Sensorium / Orientation: alert Motor Exam: strength 5/5 throughout Psych mental status grossly normal Skin no rashes or lesions noted MDM MDM MDM Narrative Medical decision making narrative: Patient presented to the ER afebrile satting 98 and a high percent on room air with no increased work of breathing. Constellation of symptoms is concerning for viral infection such as COVID versus rhinovirus versus pneumonia versus pneumothorax. Secondary to this a COVID and flu swab were obtained which was negative and chest x-ray revealed no acute lung pathology. The patient is not in respiratory distress or having need for supplemental oxygen and therefore she was given symptomatic care and discharged home History & Record Review Discussion w/independent historian: Patient Lab Data Attestation: I reviewed the patient's lab results. Labs: Laboratory Results - last 24 hr 01/05/23 23:49 Urine Test Negative Radiography Diagnostic Testing: Clinical Impression(s) from Imaging Studies Chest X-Ray 01/05/23 23:28 IMPRESSION: No radiographic evidence of acute cardiopulmonary disease. Electronically Signed: Yuki Robles MD at 0:09 EDT , 1 view chest x-ray is interpreted by the emergency medicine physician reveals no acute infiltrate pneumothorax or pleural effusion Discharge Plan Triage Chief Complaint: General Illness ED Provider: Jas Salas Dx/Rx/DC Orders Clinical Impression: Viral upper respiratory tract infection with cough, Tobacco use Instructions: ED URI, Viral, No Abx (Adult) Prescriptions: New prednisone 20 mg tablet 40 mg PO DAILY 7 Days Qty: 14 0RF azelastine 137 mcg (0.1 %) aerosol,spray 2 spray intranasal BID Qty: 30 0RF Rx Instructions: administer into each nostril albuterol sulfate [Ventolin HFA] 90 mcg/actuation HFA aerosol inhaler 1 - 2 puff inhalation Q4H PRN PRN (Reason: SOB/Wheezing) Qty: 1 0RF hydrocodone-homatropine [Hycodan] 5-1.5 mg/5 mL (5 mL) syrup 5 ml PO 4X/DAY PRN PRN (Reason: cough) 7 Days Qty: 140 0RF No Action PNV 248-frbbn-yzkdx-3-fish oil [ with DHA-Folic Acid] 1 EACH tablet,chewable 1 ea PO DAILY ondansetron HCl 4 MG tablet 4 mg PO Q4H PRN PRN (Reason: Nausea) Patient Comments: take 1 tablet by mouth every 6 hours if needed for nausea pantoprazole 40 MG tablet 40 mg PO DAILY ibuprofen 600 MG tablet 600 mg PO Q6H PRN PRN (Reason: pain or cramping) Qty: 30 1RF norethindrone (contraceptive) [Jencycla] 0.35 mg tablet 0.35 mg PO DAILY ondansetron 4 mg tablet,disintegrating 4 mg PO Q8H PRN PRN (Reason: Nausea) Qty: 14 0RF Stand Alone Forms: ED Work / School Excuse Primary Care Provider: Care Physician,No Primary Referrals: Jose Spears MD [Med Staff - Active Staff] - Care Physician,No Primary [Primary Care Provider] - Disposition Disposition: Home, Self Care Discharge Date/Time: 01/06/23 01:13
== END 2023-01-06 01:13 | disposition home or self-care (01) ==
PROVIDERS: Emergency Provider Emergency Medicine; Visit Provider Emergency Medicine
DX: J06.9 Acute upper respiratory infection, unspecified (principal); Z20.822 Contact with and (suspected) exposure to COVID-19; F17.210 Nicotine dependence, cigarettes, uncomplicated; Z79.899 Other long term (current) drug therapy; R11.0 Nausea
CPT/HCPCS: 71045; 81025; 87428; 99282

== ENCOUNTER 2023-03-16 04:28 | Emergency (ER) | payer SELFPAY ==
[2023-03-16 04:29] VITALS: BP 108/76; PULSE 65; RESP 22; TEMP 36.9; O2SAT 99; BMI 38.2
[2023-03-16 04:32] VITALS: BP 108/76; PULSE 65; RESP 22; TEMP 36.9; O2SAT 99
--- NOTE | 2023-03-16 04:50 | EX.ED.DYSGE1 ---
HPI History of Present Illness Chief Complaint: Dental Informant: patient and spouse/S.O. Narrative Narrative: Presents here c/o other increasing pain right ear for 2 days. Denies trauma. Denies fever. History of sinus congestion with pain in the right facial region. Denies any dental pain or any sore throat. Using [id number] ear pain drops at the [employer] [facility] with no relief. Denies history of gastric ulcers or kidney injury. Denies any allergies. PFSH PFSH Home Medications ibuprofen 600 mg tablet 600 mg PO Q6H PRN PRN pain #20 TABLETS 03/16/23 [Rx Last Taken Unknown] Allergy/AdvReac Type Severity Reaction Status Date / Time No Known Allergies Allergy Verified 03/16/23 04:29 Social History Smoking Status: Current every day smoker tobacco type: cigarettes ROS ROS ED Constitutional Constitutional ED: Denies chills, fever(s) or sweats Eyes Eyes: Denies change in vision ENT ENT ED: Reports ear pain and other Details: Sinus pain ; Denies dysphagia or sore throat Cardiovascular Cardiovascular: Denies chest pain, leg edema, palpitations or racing heartbeat Respiratory/Chest Respiratory/Chest: Denies cough, dyspnea or dyspnea on exertion Gastrointestinal Gastrointestinal: Denies abdominal pain, diarrhea, nausea or vomiting Genitourinary Genitourinary ED: Denies dysuria, hematuria or urinary frequency Musculoskeletal Musculoskeletal: Denies back pain, extremity pain or neck pain Integumentary Denies rash or wounds Neurologic Neurologic: Denies headache(s), paresthesias or weakness EXAM Physical Exam Const Vital Signs: 03/16/23 04:29 03/16/23 04:32 Temperature 98.4 F 98.4 F Temperature Source Temporal Temporal Pulse Rate 65 65 Respiratory Rate 22 H 22 H Blood Pressure 108/76 108/76 Blood Pressure Mean 86 86 Pulse Ox 99 99 Oxygen Delivery Method Room Air Room Air Positive well nourished and well developed Constitutional Narrative: Comfortable, nontoxic. General Appearance ED: well developed HEENT Reports TM's clear and moist mucous membranes HEENT Narrative: Tender to palpation maxillary sinus. Normal TM bilaterally. Normal external canal. Mild swollen turbinates on right with drainage. No posterior pharyngeal erythema. Dentition there is a cavity right lower tooth 30 missing 31 and 29. No focal abscess no sublingual edema. There is no tenderness to percussion of tooth #30. normocephalic and atraumatic Tympanic Membrane ED: Yes TM's clear Eyes PERRL, EOMs intact bilaterally and conjunctivae normal General Eye ED: Yes normal appearance of both eyes Neck no lymphadenopathy and supple General: Negative for tenderness Chest Wall Chest: Negative for tenderness Resp normal respiratory effort and normal air movement Effort and Inspection: symmetric chest movement; Negative for respiratory distress Cardio regular rate, regular rhythm and no murmurs Peripheral Pulses: pulses 2+ throughout GI normal to inspection, nondistended, normoactive bowel sounds and non-tender Palpation: Negative for guarding or rebound tenderness present Back/Spine no CVA tenderness and no thoracic nor lumbar tenderness Extremity normal to inspection General Extremety ED: Negative for edema or tenderness General Extremity: Negative for edema Neuro oriented x3 and no sensory deficits noted Sensorium / Orientation: awake and alert Skin no rashes or lesions noted and no wounds MDM MDM MDM Narrative Medical decision making narrative: Interventions / MDM: Differential diagnosis: Sinus congestion, eustachian tube dysfunction, otalgia Diagnosis considered but do not suspect: No signs of otitis media or externa. No referred pain from dental without tenderness to percussion. My EKG interpretation: N/A Imaging independently reviewed and interpreted by myself: N/A External documents reviewed: N/A Test considered but not ordered:N/A ED course: Vital stable nontoxic, history of exam concerns for eustachian tube dysfunction from sinus congestion causing her otalgia. Patient started on Afrin spray with Flonase. Ibuprofen also started for pain control. Outpatient follow-up. Re-evaluation: stable Disposition discussed with patient/family/significant other: Patient Case discussed with consulting clinician: N/A This note was generated with [employer] dictation software. It may contain incorrect words, spelling, and punctuation that were not noted in checking the note before signing. Discharge Plan Triage Chief Complaint: Dental ED Provider: Nick Montez Dx/Rx/DC Orders Clinical Impression: Eustachian tube dysfunction, Sinus congestion, Otalgia of right ear Instructions: Common Middle Ear Problems, Understanding Your Sinuses, ED Earache Without Infection (Adult) Prescriptions: New ibuprofen 600 mg tablet 600 mg PO Q6H PRN PRN (Reason: pain) Qty: 20 0RF Stand Alone Forms: ED Work / School Excuse Primary Care Provider: Care Physician,No Primary Referrals: Zara Quezada [Non-Staff] - 1 Week if not improving Care Physician,No Primary [Primary Care Provider] - Activity Restrictions/Additional Instructions: No sign of ear infection on exam. With your sinus congestion concerns for eustachian tube dysfunction on the right side. Use Flonase daily as prescribed. Use Afrin nasal spray to the right side 1 to 2 sprays every 6 hours for 3 days then stop the Afrin. Continue ibuprofen as needed. Follow-up as an outpatient. Disposition Disposition: Home, Self Care Discharge Date/Time: 03/16/23 05:06
[2023-03-16] MEDS: Ibuprofen 600 MG Tablet PO (04:54)
[2023-03-16] MEDS: Oxymetazoline 0.05% 1 SPRAY SPRAY.BTL 2 SPRAY NASAL (04:55)
[2023-03-16] MEDS: Fluticasone 0.05% 1 SPRAY NASAL.SRY NASAL (05:03)
== END 2023-03-16 05:06 | disposition home or self-care (01) ==
PROVIDERS: Emergency Provider Emergency Medicine; Visit Provider Emergency Medicine
DX: H69.91 Unspecified Eustachian tube disorder, right ear (principal); H92.01 Otalgia, right ear; R09.81 Nasal congestion; K02.9 Dental caries, unspecified; F17.210 Nicotine dependence, cigarettes, uncomplicated
CPT/HCPCS: 99282

== ENCOUNTER 2023-04-07 17:43 | Emergency (ER) | payer SELFPAY ==
[2023-04-07 17:43] VITALS: BP 94/57; PULSE 75; RESP 14; TEMP 36.8; O2SAT 97; BMI 24.5
--- NOTE | 2023-04-07 19:05 | EX.ED.GENINJ ---
HPI History of Present Illness Chief Complaint: Other, Pain/Inj Informant: patient Onset/Context/Timing Onset: Days (3) Narrative Narrative: Healthy 32-year-old female states she was playing-wrestling with someone Ronnie Devi 3 days ago, she states she did not sustain any acute injury, but thought she pulled a muscle in her neck which hurt a little afterwards, and then today it is much worse. Pain is posterior neck right side only all the way down to about her shoulder blade, it hurts worse to turn her head to the right than to the left. She denies any neurologic symptoms. She denies any direct trauma to the head or neck that she can recall but they were rolling around and wrestling. PFSH PFSH Medical History no medical history no medical history Home Medications ibuprofen 600 mg tablet 600 mg PO Q6H PRN PRN pain #20 TABLETS 03/16/23 [Rx Last Taken Unknown] meloxicam 15 mg tablet 15 mg PO DAILY #14 tabs 04/07/23 [Rx Last Taken Unknown] orphenadrine citrate 100 mg tablet,extended release 100 mg PO BID PRN muscle pain #10 tabs 04/07/23 [Rx Last Taken Unknown] Allergy/AdvReac Type Severity Reaction Status Date / Time No Known Allergies Allergy Verified 04/07/23 17:43 Social History Smoking Status: Current every day smoker tobacco type: cigarettes ROS ROS ED Constitutional Constitutional ED: Denies chills or fever(s) Eyes Eyes: Denies blurry vision or change in vision Musculoskeletal Musculoskeletal: Reports as per HPI, back pain and neck pain; Denies extremity pain Integumentary Denies abscess or rash Neurologic Neurologic: Denies headache(s), paresthesias or weakness EXAM Physical Exam Const Vital Signs: 04/07/23 17:43 04/07/23 19:01 Temperature 98.3 F Temperature Source Temporal Pulse Rate 75 Respiratory Rate 14 Respiratory Effort Normal Non-Labored Respiratory Pattern Normal Blood Pressure 94/57 L Blood Pressure Mean 69 Pulse Ox 97 Oxygen Delivery Method Room Air Positive well nourished and well developed General Appearance ED: well developed and NAD HEENT atraumatic; Negative for tenderness Eyes PERRL and EOMs intact bilaterally Neck Neck Narrative: Tender throughout the right paraspinal cervical musculature down into the rhomboids as well. No midline tenderness. No left-sided tenderness. Normal inspection. Full range of motion of the neck, but with pain when she moves to the right limiting her range to some degree at extreme. General: tenderness Resp normal respiratory effort Extremity normal to inspection and full ROM Neuro oriented x3, CN's II-XII intact bilaterally, moves all extremities, no focal motor deficits, no sensory deficits noted and gait normal Amina Coma Scale: document GCS findings Spontaneous Obeys Commands Oriented 15 Psych mental status grossly normal and thought process normal Skin no rashes or lesions noted and no wounds MDM MDM MDM Narrative Medical decision making narrative: This is all consistent with myofascial strain as the patient suspected. Supportive care advised, I will give her injections of Toradol and Norflex as well as a [place] here, I do not think she needs prescriptions for narcotics, she was advised that this may last for 2 weeks before completely better. She is in the area of the timing when this typically does feel the worst. I will prescribe a muscle relaxer for use when not at work, and meloxicam to use daily while she is working. Discharge Plan Triage Chief Complaint: Other, Pain/Inj ED Provider: Ralph Shields Dx/Rx/DC Orders Clinical Impression: Acute cervical myofascial strain Instructions: ED Neck Sprain or Strain Prescriptions: New meloxicam 15 mg tablet 15 mg PO DAILY Qty: 14 0RF orphenadrine citrate 100 mg tablet extended release 100 mg PO BID PRN (Reason: muscle pain) Qty: 10 0RF No Action ibuprofen 600 mg tablet 600 mg PO Q6H PRN PRN (Reason: pain) Qty: 20 0RF Primary Care Provider: Care Physician,No Primary Referrals: Doctor,Your [Non-Staff] - 10-14 Days if not better Activity Restrictions/Additional Instructions: The meloxicam is safe to take daily while you are at work; do not mix with other anti-inflammatory such as Aleve or ibuprofen. The orphenadrine is a muscle relaxer that can make some people feel little sleepy so avoid taking this while you are at work, but okay to do afterwards. May add Tylenol to both of these as needed, and may treat your painful area with heat or ice, whichever 1 feels better is okay. Disposition Disposition: Home, Self Care
[2023-04-07] MEDS: HYDROcodone Bitartrate/Apap 5/325 Tablet PO (19:45)
[2023-04-07] MEDS: Orphenadrine 60 MG/2 ML Ampul IM (19:46)
[2023-04-07] MEDS: Ketorolac 60 MG/2 ML Vial IM (19:46)
== END 2023-04-07 20:06 | disposition home or self-care (01) ==
LOC: ED 19:25
PROVIDERS: Emergency Provider Emergency Medicine; Visit Provider Emergency Medicine
DX: S16.1XXA Strain of muscle, fascia and tendon at neck level, initial encounter (principal); M25.511 Pain in right shoulder; X58.XXXA Exposure to other specified factors, initial encounter; Y93.83 Activity, rough housing and horseplay; F17.210 Nicotine dependence, cigarettes, uncomplicated
CPT/HCPCS: 96372; 99282

== ENCOUNTER 2023-04-13 09:30 | Emergency (ER) | payer OTHER, SELFPAY ==
[2023-04-13 09:31] VITALS: BP 148/73; PULSE 62; RESP 15; TEMP 36.8; O2SAT 100; BMI 37.1
--- NOTE | 2023-04-13 10:02 | EDS_ITS ---
HPI History of Present Illness Chief Complaint: Cold Sx Narrative Narrative: Patient is here because she needs a COVID test. She states she would go to urgent care but they required a co-pay and she does not have money. She took a COVID test at home which was positive and work needs a confirmation. It sounds like she started with symptoms on 04 April. But it got better. Now in the last few days she has had sneezing coughing runny nose. No myalgias. Not dyspneic. She does report a history of asthma but states its asthma that does not need an inhaler. She is not wheezing. She is eating and drinking fine. PFSH PFSH Home Medications ibuprofen 600 mg tablet 600 mg PO Q6H PRN PRN pain #20 TABLETS 03/16/23 [Rx Last Taken Unknown] meloxicam 15 mg tablet 15 mg PO DAILY #14 tabs 04/07/23 [Rx Last Taken Unknown] orphenadrine citrate 100 mg tablet,extended release 100 mg PO BID PRN muscle pain #10 tabs 04/07/23 [Rx Last Taken Unknown] Allergy/AdvReac Type Severity Reaction Status Date / Time No Known Allergies Allergy Verified 04/13/23 09:45 Social History Smoking Status: Current every day smoker tobacco type: cigarettes ROS ROS ED ROS Narrative A complete review of systems was performed and is negative except as documented in the history of present illness. Some specific details below. Constitutional: No recent fevers or chills. Some mild malaise EYE: No discharge, visual complaints, or pain. ENT: Mild congestion runny nose and sneezing. CV: No chest pain or palpitations. Respiratory: Not short of breath. May be a rare cough. GI: No abdominal pain. No nausea vomiting diarrhea. No blood in stool. : No frequency dysuria or hematuria. Musculoskeletal: No recent trauma. No pains. No swelling. Skin: No rash. Nondiaphoretic. Neuro: No weakness or numbness. Endocrine: No polyuria or polydipsia. EXAM Physical Exam Narrative Exam Narrative: CONSTITUTIONAL: Patient is nontoxic in appearance. The patient looks comfortable. Work of breathing looks normal. HEENT: No notable trauma. Mucous membranes moist. No sinus tenderness. No indication of pain with swallowing. No exudate. EYES: No conjunctival injection. No proptosis. NECK:No JVD. No stridor. CARDIOVASCULAR: Regular rate. Regular rhythm. No notable murmur. No JVD. RESPIRATORY: No respiratory distress. Breathing is unlabored. No wheezes at all on either side. No rhonchi. No rales. No pain with a deep breath. No chest wall tenderness. GASTROINTESTINAL: Not distended. Bowel sounds are normal. No tenderness. GENITOURINARY: No CVA tenderness. MUSCULOSKELETAL: Atraumatic. No peripheral edema. No cord. No tenderness along the deep venous system. No asymmetry. No distended veins. NEUROLOGICAL: Patient is alert and appropriate. No focal deficit noted. SKIN: No noted rashes. No diaphoresis. PSYCHIATRIC: Patient is calm. Mood is appropriate. Const Vital Signs: 04/13/23 09:31 Temperature 98.2 F Temperature Source Temporal Pulse Rate 62 Respiratory Rate 15 Blood Pressure 148/73 H Blood Pressure Mean 98 Pulse Ox 100 Oxygen Delivery Method Room Air MDM MDM MDM Narrative Medical decision making narrative: COVID test is positive. She will be given this for her work. I do not see indication for blood work as she is there is no nausea vomiting or pain. I do not think we need an x-ray as she is not short of breath and her saturations are normal. Discharge Plan Triage Chief Complaint: Cold Sx ED Provider: Carson Conner Dx/Rx/DC Orders Clinical Impression: COVID Instructions: Coronavirus Disease 2019 (COVID-19): Caring for Yourself or Others Prescriptions: No Action ibuprofen 600 mg tablet 600 mg PO Q6H PRN PRN (Reason: pain) Qty: 20 0RF meloxicam 15 mg tablet 15 mg PO DAILY Qty: 14 0RF orphenadrine citrate 100 mg tablet extended release 100 mg PO BID PRN (Reason: muscle pain) Qty: 10 0RF Stand Alone Forms: ED Work / School Excuse Primary Care Provider: Care Physician,No Primary Referrals: Catrina eRed MD [Med Staff - Surgery Scheduling Coordinator] - 1 Week if not improving Care Physician,No Primary [Primary Care Provider] - Disposition Disposition: Home, Self Care
--- OUTSIDE RECORDS SUMMARY | 2023-04-13 11:39 | XMS RPT_ITS | CCD ---
Author Name Unknown Address [address] [place] [address] Organization [facility] Care Team Providers Care Catalogue Maker Name Role Phone Jeremias Vences MDunnuno Primary Care Pro vider JEREMIAS VENCES MOUNIR Admitting Diane vailable VANGIE, JEREMIAS JACINDA MOUNIR Primary Care Diane vailable Jeremias Vences MD Mounir Primary Care Pro vider Unavailable Unavailable VANGIENARCISOIA JACINDA MOUNIR Primary Care Diane vailable VANGIE, JEREMIAS JACINDA MOUNIR Referring Diane vailable VANGIE, JEREMIAS JACINDA MOUNIR Attending Diane vailable VANGIE, JEREMIAS JACINDA MOUNIR Referring Diane vailable VANGIE, JEREMIAS JACINDA MOUNIR Attending Diane vailable VANGIE, JEREMIAS JACINDA MOUNIR Primary Care Diane vailable Vangie, Jeremias H Unavailable Unavailable Moomaw, Constantino I Unavailable Unavailable Bryant, Melanie Unavailable Unavailable Jeremias Vences MD Mounir Primary Care Pro vider JEREMIAS VENCES MOUNIR Attending Diane vailable VANGIE, JEREMIAS JACINDA MOUNIR Primary Care Diane vailable VANGIE, JEREMIAS JACINDA MOUNIR Attending Diane vailable VANGIE, JEREMIAS JACINDA MOUNIR Primary Care Diane vailable VANGIE, JEREMIAS JACINDA MOUNIR Attending Diane vailable VANGIE, JEREMIAS JACINDA MOUNIR Primary Care Diane vailable VANGIE, JEREMIAS JACINDA MOUNIR Primary Care Dinae vailable VANGIE, JEREMIAS JACINDA MOUNIR Attending Diane vailable CHRISTY NIELSEN Attending Unavailable VANGIE, JEREMIAS JACINDA MOUNIR Primary Care Diane vailable VANGIE, JEREMIAS JACINDA MOUNIR Primary Care Diane vailable KENIA LOJA Attending Unavailable VANGIE, JEREMIAS JACINDA MOUNIR Primary Care Diane vailable FERN RAHMAN Attending Unavailable VANGIE, JEREMIAS JACINDA MOUNIR Primary Care Diane vailable VANGIE, JEREMIAS JACINDA MOUNIR Attending Diane vailable VANGIE, JEREMIAS JACINDA MOUNIR Primary Care Diane vailable VANGIE, JEREMIAS JACINDA MOUNIR Attending Diane vailable VANGIE, JEREMIAS JACINDA MOUNIR Referring Diane vailable VANGIE, JEREMIAS JACINDA MOUNIR Admitting Diane vailable VANGIE, JEREMIAS JACINDA MOUNIR Primary Care Diane vailable REYNA NICHOLSON Attending Unavailable VANGIE, JEREMIAS JACINDA MOUNIR Attending Diane vailable VANGIE, JEREMIAS JACINDA MOUNIR Primary Care Diane vailable VANGIE, JEREMIAS JACINDA MOUNIR Attending Diane vailable VANGIE, JEREMIAS JACINDA MOUNIR Primary Care Diane vailable BRYANT, MD MELANIE FERRER Attending Unava ilable BRYANT, MD MELANIE FERRER Referring Unava ilable BRYANT, MD MELANIE FERRER Attending Unava ilable BRYANT, MD MELANIE FERRER Referring Unava ilable BRYANT, MD MELANIE FERRER Attending Unava ilable BRYANT, MD MELANIE FERRER Attending Unava ilable BRYANT, MD MELANIE FERRER Referring Unava ilable BRYANT, MD MELANIE FERRER Attending Unava ilable BRYANT, MD MELANIE FERRER Referring Unava ilable BRYANT, MD MELANIE FERRER Referring Unava ilable BRYANT, MD MELANIE FERRER Attending Unava ilable BRYANT, MD MELANIE FERRER Referring Unava ilable BRYANT, MD MELANIE FERRER Attending Unava ilable BRYANT, MD MELANIE FERRER Referring Charlotte BRYANT, MD MELANIE FERRER Attending Charlotte BRYANT, MD MELANIE EFRRER Referring Charlotte BRYANT, MD MELANIE FERRER Attending Charlotte BRYANT, MD MELANIE FERRER Attending Charlotte BRYANT, MD MELANIE FERRER Attending Charlotte ilclarence Medications Current Medications Medication Drug Class(es) Dates Sig (Normalized) Sig (Original) acetaminophen 325 mg oral tablet (1 source) Start: 09-17-2021 take 3 tablets by mouth every six hours acetaminophen 325 mg oral tablet ; 3 tab(s) orally every 6 hours Quantity: 0 Refills: 0 Ordered: 17-Sep-2021 Melanie Bryant Start: 17-Sep-2021 Generic Substitution Allowed busPIRone hydrochloride 10 mg oral tablet (20 sources) Start: 03-05-2021 take 1 tablet by mouth every twelve hours busPIRone (BUSPAR) 10 MG tablet Take 10 mg by mouth every 12 (twelve) hours . 0 03/05/2021 Active Completed/Discontinued Medications Medication Drug Class(es) Dates Sig (Normalized) Sig (Original) ciprofloxacin 500 mg oral tablet (1 source) Quinolone Antimicrobial Start: 01-16-2020 End: 01-22-2020 take 1 tablet by mouth twice daily Cipro 500 mg oral tablet ; 1 tab(s) orally 2 times a day Quantity: 14 Refills: 0 Ordered: 15-Jan-2020 Ariadna Van Start: 15-Jan-2020 End: 21-Jan-2020 Generic Substitution Allowed Comments: Avoid prolonged or excessive exposure to direct and/or artificial sunlight while taking this medication.Check with your doctor before becoming .Do not take dairy products, antacids, or iron preparations within one hour of this medication.Finish all this medication unless otherwise directed by prescriber.Medicat ion should be taken with plenty of water. Problems Active Problems Problem Classification Problem Date Documented Da te Episodic/Chronic Abdominal pain (17 sources) Flank pain; Translations: [Abdominal pain, other specified site] Episodic Alcohol-related disorders (2 sources) Alcohol abuse; Translations: [Alcohol dependence, in remission] Chronic Anxiety disorders (20 sources) Mixed anxiety and depressive disorder; Translations: [Anxiety disorder, unspecified] Onset: 10-01-2020 Chronic Asthma (13 sources) Asthma; Translations: [Unspecified asthma, uncomplicated] Chronic Genitourinary symptoms and ill-defined conditions (17 sources) Blood in urine; Translations: [Hematuria, unspecified] Episodic Headache; including migraine (20 sources) Migraine with aura; Translations: [Migraine with aura, not intractable, without status migrainosus] Onset: 12-03-2020 12-03-2020 Chronic Miscellaneous mental health disorders (12 sources) Chronic insomnia; Translations: [Insomnia, unspecified] Chronic Mood disorders (20 sources) Mild major depression; Translations: [Major depressive disorder, single episode, mild] Onset: 04-21-2021 Chronic Nonmalignant breast conditions (20 sources) Breast lump; Translations: [Lump or mass in breast] Episodic Other complications of ; puerperium affecting management of mother (5 sources) Large for gestation age fetus; Translations: [Large for gestational age fetus] Episodic Other complications of (7 sources) Pain in female pelvis; Translations: [Other specified complications of , antepartum condition or complication] Episodic Other gastrointestinal disorders (1 source) Heartburn; Translations: [Heartburn] Episodic Other nervous system disorders (1 source) Paresthesia of hand ; Translations: [Anesthesia of skin] Episodic Other and delivery including normal (19 sources) Urine test positive; Translations: [ examination or test, positive result] 09-12-2021 Episodic Other upper respiratory infections (2 sources) Sore throat symptom; Translations: [Acute pharyngitis, unspecified] Onset: 09-30-2021 Episodic Residual codes; unclassified (17 sources) Tobacco use and exposure - finding; Translations: [Tobacco use disorder] Episodic Residual codes; unclassified (17 sources) H/O: miscarriage; Translations: [Personal history of other genital system and obstetric disorders] Episodic Past or Other Problems Problem Classification Problem Date Documented Da te Episodic/Chronic Administrative/social admission (20 sources) Patient encounter status; Translations: [Persons encountering health services in other specified circumstances] Onset: 10-01-2020 Episodic Other gastrointestinal disorders (7 sources) Constipation; Translations: [Constipation, unspecified] Onset: 03-03-2021 Episodic Other non-traumatic joint disorders (8 sources) Shoulder pain; Translations: [Pain in right shoulder] Onset: 03-03-2021 Episodic Residual codes; unclassified (9 sources) First trimester ; Translations: [Less than 8 weeks gestation of ] Onset: 01-28-2021 Episodic Results Test Name Value Interpretation Reference Range Facil ity Vital Signs Date Time Vital Sign Value Performing Clinician [facility] 09-30-2021 07:28-0400 Body height 157.5 cm Jeremias Vences MD Work Phone: [facility] 09-30-2021 07:28-0400 Body mass index (BMI) [Ratio] 41.52 kg/m2 Jeremias Vences MD Work Phone: [facility] 09-30-2021 07:28-0400 Body temperature 97.5 [degF] Jeremias Vences MD Work Phone: [facility] 09-30-2021 07:28-0400 Body weight 102.97 kg Jeremias Vences MD Work Phone: [facility] 09-30-2021 07:28-0400 Diastolic blood pressure 86 mm[Hg] Jeremias Vences MD Work Phone: [facility] 09-30-2021 07:28-0400 Heart rate 85 /min Jeremias Vences MD Work Phone: [facility] 09-30-2021 07:28-0400 Respiratory rate 16 /min Jeremias Vences MD Work Phone: [facility] 09-30-2021 07:28-0400 SaO2% (BldA) [Mass fraction] 96 % Jeremias Vences MD Work Phone: [facility] 09-30-2021 07:28-0400 Systolic blood pressure 124 mm[Hg] Jeremias Vences MD Work Phone: [facility] 09-22-2021 11:17-0400 Body height 160.02 cm Melanie Bryant DO Work Phone: [address] Work Phone: 09-22-2021 11:17-0400 Diastolic blood pressure 82 mm[Hg] Melanie Bryant DO Work Phone: [place] [address] [place] Work Phone: 09-22-2021 11:17-0400 Systolic blood pressure 118 mm[Hg] Melanie Bryant DO Work Phone: [place] [address] [place] Work Phone: 09-17-2021 12:06-0400 Body temperature 98.06 [degF] [facility] 09-17-2021 12:06-0400 Diastolic blood pressure 68 mm[Hg] [facility] 09-17-2021 12:06-0400 Heart rate 69 /min [facility] 09-17-2021 12:06-0400 Respiratory rate 16 /min [facility] 09-17-2021 12:06-0400 SaO2% (BldA) [Mass fraction] 97 % [facility] 09-17-2021 12:06-0400 Systolic blood pressure 133 mm[Hg] [facility] 09-09-2021 11:08-0400 Body height 160.02 cm Melanie Trana DO Work Phone: [place] [address] [place] Work Phone: 09-09-2021 11:08-0400 Body mass index (BMI) [Ratio] 42.69 kg/m2 Melanie Bryant DO Work Phone: [place] [address] [place] Work Phone: 09-09-2021 11:08-0400 Body surface area Derived from formula 2.09 m2 Melanie Bryant DO Work Phone: [place] [address] [place] Work Phone: 09-09-2021 11:08-0400 Body weight 109.32 kg Melanie Bryant DO Work Phone: [place] [address] [place] Work Phone: 09-09-2021 11:08-0400 Diastolic blood pressure 82 mm[Hg] Melanie Bryant DO Work Phone: [place] [address] [place] Work Phone: 09-09-2021 11:08-0400 Systolic blood pressure 118 mm[Hg] Melanie Bryant DO Work Phone: [address] Work Phone: 09-02-2021 10:19-0400 Body height 160.02 cm Melanie Bryant DO Work Phone: [address] Work Phone: 09-02-2021 10:19-0400 Body mass index (BMI) [Ratio] 42.49 kg/m2 Melanie Bryant DO Work Phone: [address] Work Phone: 09-02-2021 10:19-0400 Body surface area Derived from formula 2.09 m2 Melanie Bryant DO Work Phone: [address] Work Phone: 09-02-2021 10:19-0400 Body weight 108.8 kg Melanie Bryant DO Work Phone: [address] Work Phone: 09-02-2021 10:19-0400 Diastolic blood pressure 72 mm[Hg] Melanie Bryant DO Work Phone: [place] [address] [place] Work Phone: 09-02-2021 10:19-0400 Systolic blood pressure 118 mm[Hg] Melanie Bryant DO Work Phone: [place] [address] [place] Work Phone: 08-26-2021 11:16-0400 Body height 160.02 cm Melanie Bryant DO Work Phone: [place] [address] [place] Work Phone: 08-26-2021 11:16-0400 Body mass index (BMI) [Ratio] 41.47 kg/m2 Melanie Bryant DO Work Phone: [place] [address] [place] Work Phone: 08-26-2021 11:16-0400 Body surface area Derived from formula 2.07 m2 Melanie Bryant DO Work Phone: [place] [address] [place] Work Phone: 08-26-2021 11:16-0400 Body weight 106.2 kg Melanie Bryant DO Work Phone: [place] [address] [place] Work Phone: 08-26-2021 11:16-0400 Diastolic blood pressure 70 mm[Hg] Melanie Bryant DO Work Phone: [place] [address] [place] Work Phone: 08-26-2021 11:16-0400 Systolic blood pressure 110 mm[Hg] Melanie Bryant DO Work Phone: [place] [address] [place] Work Phone: 08-11-2021 11:15-0400 Body height 160.02 cm Melanie Bryant DO Work Phone: [place] [address] [place] Work Phone: 08-11-2021 11:15-0400 Body mass index (BMI) [Ratio] 40.73 kg/m2 Melanie Bryant DO Work Phone: [place] [address] [place] Work Phone: 08-11-2021 11:15-0400 Body surface area Derived from formula 2.05 m2 Melanie Bryant DO Work Phone: [place] [address] [place] Work Phone: 08-11-2021 11:15-0400 Body weight 104.3 kg Melanie Bryant DO Work Phone: [place] [address] [place] Work Phone: 08-11-2021 11:15-0400 Diastolic blood pressure 76 mm[Hg] Melanie Bryant DO Work Phone: [place] [address] [place] Work Phone: 08-11-2021 11:15-0400 Systolic blood pressure 120 mm[Hg] Melanie Bryant DO Work Phone: [place] [address] [place] Work Phone: 07-11-2021 08:41-0400 Body height 160.02 cm Melanie Bryant DO Work Phone: [place] [address] [place] Work Phone: 07-11-2021 08:41-0400 Body mass index (BMI) [Ratio] 40.77 kg/m2 Melanie Bryant DO Work Phone: [place] [address] [place] Work Phone: 07-11-2021 08:41-0400 Body surface area Derived from formula 2.05 m2 Melanie Bryant DO Work Phone: [place] [address] [place] Work Phone: 07-11-2021 08:41-0400 Body weight 104.4 kg Melanie Bryant DO Work Phone: [place] [address] [place] Work Phone: 07-11-2021 08:41-0400 Diastolic blood pressure 72 mm[Hg] Melanie Bryant DO Work Phone: [facility] [address] [place] Work Phone: 07-11-2021 08:41-0400 Systolic blood pressure 112 mm[Hg] Melanie Bryant DO Work Phone: [place] [address] [place] Work Phone: 06-27-2021 09:12-0400 Body height 160.02 cm Melanie Bryant DO Work Phone: [place] [address] [place] Work Phone: 06-27-2021 09:12-0400 Body mass index (BMI) [Ratio] 39.48 kg/m2 Melanie Bryant DO Work Phone: [place] [address] [place] Work Phone: 06-27-2021 09:12-0400 Body surface area Derived from formula 2.02 m2 Melanie Bryant DO Work Phone: [place] [address] [place] Work Phone: 06-27-2021 09:12-0400 Body weight 101.1 kg Melanie Bryant DO Work Phone: [place] [address] [place] Work Phone: 06-27-2021 09:12-0400 Diastolic blood pressure 82 mm[Hg] Melanie Bryant DO Work Phone: [place] [address] [place] Work Phone: 06-27-2021 09:12-0400 Systolic blood pressure 126 mm[Hg] Melanie Bryant DO Work Phone: [place] [address] [place] Work Phone: 06-20-2021 14:40-0500 Body height 157.4 cm [facility] 06-20-2021 14:40-0500 Body temperature 97.52 [degF] [facility] 06-20-2021 14:40-0500 Body weight 101 kg [facility] 06-20-2021 14:40-0500 Diastolic blood pressure 73 mm[Hg] [facility] 06-20-2021 14:40-0500 Heart rate 88 /min Jeremias Vangie [facility] 06-20-2021 14:40-0500 Respiratory rate 20 /min Jeremias Vences [facility] 06-20-2021 14:40-0500 SaO2% (BldA) [Mass fraction] 95 % Jeremias Vences [facility] 06-20-2021 14:40-0500 Systolic blood pressure 106 mm[Hg] Jeremias Vences [facility] 04-21-2021 14:44-0500 Body height 157.5 cm Jeremias Vences MD Work Phone: [facility] 04-21-2021 14:44-0500 Body mass index (BMI) [Ratio] 38.78 kg/m2 Jeremias Vences MD Work Phone: [facility] 04-21-2021 14:44-0500 Body temperature 98.01 [degF] Jeremias Vences MD Work Phone: [facility] 04-21-2021 14:44-0500 Body weight 96.16 kg Jeremias Vences MD Work Phone: [facility] 04-21-2021 14:44-0500 Diastolic blood pressure 66 mm[Hg] Jeremias Vences MD Work Phone: [facility] 04-21-2021 14:44-0500 Heart rate 73 /min Jeremias Vences MD Work Phone: [facility] 04-21-2021 14:44-0500 Respiratory rate 16 /min Jeremias Vences MD Work Phone: [facility] 04-21-2021 14:44-0500 SaO2% (BldA) [Mass fraction] 98 % Jeremias Vences MD Work Phone: [facility] 04-21-2021 14:44-0500 Systolic blood pressure 103 mm[Hg] Jeremias Vences MD Work Phone: [facility] 04-14-2021 15:17-0500 Body height 160.02 cm Melanie Bryant DO Work Phone: [address] Work Phone: 04-14-2021 15:17-0500 Body mass index (BMI) [Ratio] 37.64 kg/m2 Melanie Bryant DO Work Phone: [place] [address] [place] Work Phone: 04-14-2021 15:17-0500 Body surface area Derived from formula 1.98 m2 Melanie Bryant DO Work Phone: [place] [address] [place] Work Phone: 04-14-2021 15:17-0500 Body temperature 96.8 [degF] Melanie Bryant DO Work Phone: [place] [address] [place] Work Phone: 04-14-2021 15:17-0500 Body weight 96.39 kg Melanie Bryant DO Work Phone: [place] [address] [place] Work Phone: 04-14-2021 15:17-0500 Diastolic blood pressure 78 mm[Hg] Melanie Bryant DO Work Phone: [place] [address] [place] Work Phone: 04-14-2021 15:17-0500 Systolic blood pressure 114 mm[Hg] Melanie Bryant DO Work Phone: [place] [address] [place] Work Phone: 03-19-2021 13:17-0500 Body height 160.02 cm Melanie Bryant DO Work Phone: [place] [address] [place] Work Phone: 03-19-2021 13:17-0500 Body mass index (BMI) [Ratio] 35.12 kg/m2 Melanie Bryant DO Work Phone: [place] [address] [place] Work Phone: 03-19-2021 13:17-0500 Body surface area Derived from formula 1.93 m2 Melanie Bryant DO Work Phone: [place] [address] [place] Work Phone: 03-19-2021 13:17-0500 Body temperature 97.5 [degF] Melanie Bryant DO Work Phone: [place] [address] [place] Work Phone: 03-19-2021 13:17-0500 Body weight 89.93 kg Melanie Bryant DO Work Phone: [place] [address] [place] Work Phone: 03-19-2021 13:17-0500 Diastolic blood pressure 78 mm[Hg] Melanie Bryant DO Work Phone: [place] [address] [place] Work Phone: 03-19-2021 13:17-0500 Systolic blood pressure 118 mm[Hg] Melanie Bryant DO Work Phone: [place] [address] [place] Work Phone: 03-12-2021 09:55-0500 Body height 157.5 cm Reyna BenavidesOzmosis Work Phone: [facility] 03-12-2021 09:55-0500 Body mass index (BMI) [Ratio] 34.75 kg/m2 Reyna BenavidesOzmosis Work Phone: [facility] 03-12-2021 09:55-0500 Body weight 86.18 kg Reyna Nicholson CHECKERING MACHINE OPERATOR Work Phone: [facility] 03-05-2021 14:43-0500 Body height 160.02 cm Melanie Bryant DO Work Phone: [place] [address] [place] Work Phone: 03-05-2021 14:43-0500 Body mass index (BMI) [Ratio] 34.01 kg/m2 Melanie Bryant DO Work Phone: [address] Work Phone: 03-05-2021 14:43-0500 Body surface area Derived from formula 1.9 m2 Melaniehui Trana DO Work Phone: [place] [address] [place] Work Phone: 03-05-2021 14:43-0500 Body temperature 97.8 [degF] Melaniehui McmillanBryant DO Work Phone: [place] [address] [place] Work Phone: 03-05-2021 14:43-0500 Body weight 87.09 kg Melaniehui Trana DO Work Phone: [address] Work Phone: 03-05-2021 14:43-0500 Diastolic blood pressure 74 mm[Hg] Melaniehui McmillanBryant DO Work Phone: [address] Work Phone: 03-05-2021 14:43-0500 Systolic blood pressure 118 mm[Hg] Melanie Bryant DO Work Phone: [address] Work Phone: 03-03-2021 09:14-0500 Body height 157.5 cm Jeremias Vences MD Work Phone: [facility] 03-03-2021 09:14-0500 Body mass index (BMI) [Ratio] 34.82 kg/m2 Jeremias Vences MD Work Phone: [facility] 03-03-2021 09:14-0500 Body weight 86.36 kg Jeremias Vences MD Work Phone: [facility] 02-05-2021 14:56-0400 Body height 160.02 cm Melanie Mcmillanmona DO Work Phone: [address] Work Phone: 02-05-2021 14:56-0400 Body mass index (BMI) [Ratio] 31.53 kg/m2 Melanie Bryant DO Work Phone: [place] [address] [place] Work Phone: 02-05-2021 14:56-0400 Body surface area Derived from formula 1.84 m2 Melanie Bryant DO Work Phone: [place] [address] [place] Work Phone: 02-05-2021 14:56-0400 Body temperature 97.8 [degF] Melanie Bryant DO Work Phone: [place] [address] [place] Work Phone: 02-05-2021 14:56-0400 Body weight 80.74 kg Melanie Bryant DO Work Phone: [place] [address] [place] Work Phone: 02-05-2021 14:56-0400 Diastolic blood pressure 72 mm[Hg] Melanie Bryant DO Work Phone: [place] [address] [place] Work Phone: 02-05-2021 14:56-0400 Systolic blood pressure 110 mm[Hg] Melanie Bryant DO Work Phone: [place] [address] [place] Work Phone: 01-28-2021 10:01-0400 Body height 157.5 cm Jeremias Vences MD Work Phone: [facility] 01-28-2021 10:01-0400 Body mass index (BMI) [Ratio] 31.64 kg/m2 Jeremias Vences MD Work Phone: [facility] 01-28-2021 10:01-0400 Body temperature 99 [degF] Jeremias Vences MD Work Phone: [facility] 01-28-2021 10:01-0400 Body weight 78.47 kg Jeremias Vences MD Work Phone: [facility] 01-28-2021 10:01-0400 Diastolic blood pressure 68 mm[Hg] Jeremias Vences MD Work Phone: [facility] 01-28-2021 10:01-0400 Heart rate 73 /min Jeremias Vences MD Work Phone: [facility] 01-28-2021 10:01-0400 Respiratory rate 16 /min Jeremias Vences MD Work Phone: [facility] 01-28-2021 10:01-0400 SaO2% (BldA) [Mass fraction] 99 % Jeremias Vences MD Work Phone: [facility] 01-28-2021 10:01-0400 Systolic blood pressure 108 mm[Hg] Jeremias Vences MD Work Phone: [facility] 01-02-2021 09:30-0400 Body height 157.5 cm Jeremias Vences MD Work Phone: [facility] 01-02-2021 09:30-0400 Body mass index (BMI) [Ratio] 30.91 kg/m2 Jeremias Vences MD Work Phone: [facility] 01-02-2021 09:30-0400 Body temperature 97.9 [degF] Jeremias Vences MD Work Phone: [facility] 01-02-2021 09:30-0400 Body weight 76.66 kg Jeremias Vences MD Work Phone: [facility] 01-02-2021 09:30-0400 Diastolic blood pressure 76 mm[Hg] Jeremias Vences MD Work Phone: [facility] 01-02-2021 09:30-0400 Heart rate 69 /min Jeremias Vences MD Work Phone: [facility] 01-02-2021 09:30-0400 Respiratory rate 16 /min Jeremias Vences MD Work Phone: [facility] 01-02-2021 09:30-0400 SaO2% (BldA) [Mass fraction] 97 % Jeremias Vences MD Work Phone: [facility] 01-02-2021 09:30-0400 Systolic blood pressure 103 mm[Hg] Jeremias Vences MD Work Phone: [facility] 11-04-2020 09:57-0400 Body height 158.8 cm Jeremias Vences MD Work Phone: [facility] 11-04-2020 09:57-0400 Body mass index (BMI) [Ratio] 29 kg/m2 Jeremias Vences MD Work Phone: [facility] 11-04-2020 09:57-0400 Body temperature 98.1 [degF] Jeremias Vences MD Work Phone: [facility] 11-04-2020 09:57-0400 Body weight 73.07 kg Jeremias Vences MD Work Phone: [facility] 11-04-2020 09:57-0400 Diastolic blood pressure 74 mm[Hg] Jeremias Vences MD Work Phone: [facility] 11-04-2020 09:57-0400 Heart rate 74 /min Jeremias Vences MD Work Phone: [facility] 11-04-2020 09:57-0400 Respiratory rate 16 /min Jeremias Vences MD Work Phone: [facility] 11-04-2020 09:57-0400 SaO2% (BldA) [Mass fraction] 98 % Jeremias Vences MD Work Phone: [facility] 11-04-2020 09:57-0400 Systolic blood pressure 119 mm[Hg] Jeremias Vences MD Work Phone: [facility] 10-01-2020 13:25-0400 Body height 158.8 cm Jeremias Vences MD Work Phone: [facility] 10-01-2020 13:25-0400 Body mass index (BMI) [Ratio] 28.49 kg/m2 Jeremias Vences MD Work Phone: [facility] 10-01-2020 13:25-0400 Body temperature 98.01 [degF] Jeremias Vences MD Work Phone: [facility] 10-01-2020 13:25-0400 Body weight 71.8 kg Jeremias Vences MD Work Phone: [facility] 10-01-2020 13:25-0400 Diastolic blood pressure 78 mm[Hg] Jeremias Vences MD Work Phone: [facility] 10-01-2020 13:25-0400 Heart rate 69 /min Jeremias Vences MD Work Phone: [facility] 10-01-2020 13:25-0400 Respiratory rate 16 /min Jeremias Vences MD Work Phone: [facility] 10-01-2020 13:25-0400 SaO2% (BldA) [Mass fraction] 97 % Jeremias Vences MD Work Phone: [facility] 10-01-2020 13:25-0400 Systolic blood pressure 118 mm[Hg] Jeremias Vences MD Work Phone: [facility] [facility] Encounters Encounter Date Encounter Type Care Provider Facility Start: 06-09-2022 ambulatory MD MELANIE BRYANT Facility:[id number] Start: 04-20-2022 ambulatory MD MELANIE BRYANT Facility:[id number] Start: 10-28-2021 ambulatory MD MELANIE BRYANT Facility:[id number] Start: 09-30-2021 End: 09-30-2021 ambulatory JEREMIAS VENCES [facility] Ambulatory Start: 09-30-2021 End: 09-30-2021 Office outpatient visit 15 minutes Jeremias Vences MD Work Phone: [facility] Primary Care Physicians Procedures Date Procedure Procedure Detail Performing Clinician Start: 09-30-2021 SARS-CoV-2 (COVID-19 ) RNA [Presence] in Respiratory specimen by LILLIE with probe detection Jeremias Vences MD Work Phone: Start: 09-15-2021 Antibody screen Plan of Treatment Date Care Activity Detail Author Start: 07-12-2031 Tetanus vaccination Tetanus: E very 10yrs [facility] Start: 10-28-2021 Patient encounter procedure Charisma Ryan Start: 10-28-2021 PPV, Provider: Melanie Bryant, Status: Pen, Time: 10:30 AM PPV, Provider: Melanie Bryant, Status: Pen, Time: 10:[address] Work Phone: Start: 09-15-2021 End: 09-16-2022 [facility] Immunizations Immunization Date Immunization Notes Care Provider Fa cili 03-03-2021 Seasonal, quadrivale nt, recombinant, injectable influenza vaccine, preservative free Jeremias Vences MD Work Phone: [facility] 03-03-2021 flu vac qv 2020,18yr up,rc,PF, (FLUBLOK QUAD) syringe Jeremias Vences MD Work Phone: [facility] 03-16-2019 influenza, injectabl e, quadrivalent, contains preservative Jeremias Vences MD Work Phone: [facility] Payers Date Payer Category Payer Medicaid [id number] 2020 Medicaid [employer] [id number] 2020-Present [phone] [address] [place] [address] [id number] 2017 Medicaid [id number] 2017 Unknown 1989 Unknown [id number] 2..840.1.158716.3.579.2.903 1989 Unknown [id number] 2..840.1.429436.3.579.2.902 1989 Unknown [id number] 2.16.840.1.693392.3.579.2.2 1989 Unknown [id number] 2.16.840.1.054094.3.579.2. 1989 Unknown [id number] 2.16.840.1.204130.3.579.2 1989 Unknown [id number] 2.16.840.1.044849.3.579.2 1989 Unknown [id number] 2.16.840.1.704387.3.579.2 1989 Unknown [id number] 2.16.840.1.004560.3.579.2 1989 Unknown [id number] 2.16.840.1.983635.3.579.2 1989 Unknown [id number] 2.16840.1.606629.3.579.2 1989 Unknown [id number] 2.16.840.1.488038.3.579.2 1989 Unknown [id number] 2.16.840.1.291760.3.579.2 1989 Unknown [id number] 2.16.840.1.118383.3.579.2 1989 Unknown [id number] 2.16.840.1.303096.3.579.2 1989 Unknown [id number] 2.16.840.1.584373.3.579.2 1989 Unknown [id number] 2.16.840.1.695586.3.579.2. 1989 Unknown [id number] 2.16.840.1.678055.3.579.2 1989 Unknown [id number] 2.16.840.1.928028.3.579.2.356 1989 Unknown [id number] 2.16.840.1.485694.3.579.2.356 1989 Unknown [id number] 2.16.840.1.237312.3.579.2.356 1989 Unknown [id number] 2.16.840.1.051363.3.579.2.356 1989 Unknown [id number] 2.16.840.1.061226.3.579.2.356 1989 Unknown [id number] 2.16.840.1.185916.3.579.2.356 1989 Unknown [id number] 2.16.840.1.591777.3.579.2.356 1989 Unknown [id number] 2.16.840.1.278020.3.579.2.356 1989 Unknown [id number] 2.16.840.1.053358.3.579.2.356 Social History Date Type Detail Facility Start: 10-03-2020 End: 09-30-2021 Tobacco smoking status [facility] Current some day smoker [facility] History of tobacco use Cigarette Smoker O [facility] Start: 10-03-2020 End: 09-30-2021 Cigarettes smoked current (pack per day) - Reported [facility] Start: 10-03-2020 End: 09-30-2021 Tobacco use and exposure Never used [facility] Start: 10-03-2020 End: 09-30-2021 Alcohol intake Ex-drinker (finding) [facility] Start: 10-01-2020 Alcohol Comment QUIT 08/01/20 [facility] Start: 1990 Sex Assigned At Not on file O [facility] Start: 09-20-2021 End: 09-30-2021 Exposure to SARS-CoV-2 (event) Not sure [facility] Exposure to SARS-CoV -2 (event) Unable to assess [facility] Tobacco smoking consumption unknown [facility] Functional Status Date Assessment Result Facility Functional observable [facility] Mental Status Date Assessment Result Facility 09-17-2021 Cognitive functions 8-Ori-20 228:00 [facility] Clinical Notes 10-01-2020 to 09-30-2021 Assessment & Plan Note - Jeremias Vences MD - 09/30/2021 7:44 AM EDTAssessment & Plan Note - Jeremias Vences MD - 09/30/2021 7:44 AM EDTPatient Instructions Note Date & Type Note Facility 09-30-2021 Evaluation + Plan note Associated Problem(s): Sore throat Viral most likely. Plan: -Tylenol prn for pain/fever -Saline nasal rinses BID or dami pod -Use mucinex for mucous thinning as needed , robitussin DM -Hydration, air humidifier and rest promoted [facility] 09-30-2021 Miscellaneous Notes Associated Problem(s): Sore throat Viral most likely. Plan: -Tylenol prn for pain/fever -Saline nasal rinses BID or dami pod -Use mucinex for mucous thinning as needed , robitussin DM -Hydration, air humidifier and rest promoted documented in this encounter [facility] 09-30-2021 History of Present illness Narrative Chief Complaint Patient presents with Other Throat is scratchy HPI: Arlene Baum is 30 years old female presenting today for follow up on anxiety and PTSD. PMH of asthma, anxiety and depression, recovering alcoholic and PTSD. Patient is currently 2 weeks and breast feeding. Sore throat: For the past 2 days, gargling with salt water, paula tea , tea with honey. No other associated URI symptoms. Associated with some dry cough and msucle aches. Past Medical History: Diagnosis Date Anxiety Asthma Hematuria Past Surgical History: Procedure Laterality Date TONSILLECTOMY Family History Problem Relation Age of Onset Schizophrenia Mother Bipolar disorder Mother Stroke Mother Hypertension Sister Other (Pill addiction) Sister Leukemia Maternal Grandfather Heart disease Other Stroke Other Social History Tobacco Use Smoking status: Some Days Packs/day: 1.00 Years: 12.00 Pack years: 12.00 Types: Cigarettes Smokeless tobacco: Never Vaping Use Vaping Use: Every day Substances: Nicotine, THC, MORE NICOTINE Substance Use Topics Alcohol use: Not Currently Comment: QUIT 08/01/20 Drug use: Yes Types: Marijuana Review of Systems Vitals: 09/30/21 0728 BP: 124/86 BP Location: Right arm Patient Position: Sitting BP Cuff Size: X-large Adult Pulse: 85 Resp: 16 Temp: 97.5 F (36.4 C) TempSrc: Temporal SpO2: 96% Weight: 103 kg (227 lb) Height: 5' 2 Estimated body mass index is 41.52 kg/m as calculated from the following: Height as of this encounter: 5' 2 . Weight as of this encounter: 103 kg (227 lb). Physical Exam Constitutional: General: She is not in acute distress. Appearance: She is not ill-appearing. HENT: Head: Normocephalic and atraumatic. Eyes: Extraocular Movements: Extraocular movements intact. Conjunctiva/sclera: Conjunctivae normal. Pupils: Pupils are equal, round, and reactive to light. Cardiovascular: Rate and Rhythm: Normal rate and regular rhythm. Pulses: Normal pulses. Heart sounds: Normal heart sounds. No murmur heard. No gallop. Pulmonary: Effort: Pulmonary effort is normal. Breath sounds: Normal breath sounds. No wheezing, rhonchi or rales. Chest: Chest wall: No tenderness. Abdominal: General: Abdomen is flat. Bowel sounds are normal. There is no distension. Palpations: Abdomen is soft. There is no mass. Tenderness: There is no abdominal tenderness. There is no right CVA tenderness, left CVA tenderness, guarding or rebound. Musculoskeletal: General: No tenderness. Normal range of motion. Cervical back: Normal range of motion and neck supple. No rigidity. No muscular tenderness. Right lower leg: No edema. Left lower leg: No edema. Lymphadenopathy: Cervical: No cervical adenopathy. Skin: General: Skin is warm. Findings: No erythema or rash. Neurological: General: No focal deficit present. Mental Status: She is alert and oriented to person, place, and time. Sensory: No sensory deficit. Motor: No weakness. Gait: Gait normal. Psychiatric: Mood and Affect: Mood normal. Behavior: Behavior normal. Thought Content: Thought content normal. Judgment: Judgment normal. OARRS/NARxCHECK Report Received and Assessed: No data found Date controlled substance agreement signed: No data found Date of last drug screen: No data found Functional Assessment: No data found PHQ9: Over the last 2 weeks, how often have you been bothered by any of the following problems? Little interest or pleasure in doing things: Several days Feeling down, depressed, or hopeless: Several days PHQ-2 Total Score: 2 Trouble falling or staying asleep, or sleeping too much: Several days Feeling tired or having little energy: Several days Poor appetite or overeating: Not at all Feeling bad about yourself - or that you are a failure or have let yourself or your family down: More than half the days Trouble concentrating on things, such as reading the newspaper or watching television: Not at all Moving or speaking so slowly that other people could have noticed. Or the opposite - being so fidgety or restless that you have been moving around a lot more than usual: Not at all Thoughts that you would be better off , or of hurting yourself in some way: Not at all PHQ-9 Total Score: 6 If you checked off any problems, how difficult have these problems made it for you to do your work, take care of things at home, or get along with other people?: Somewhat difficult YAYA-7 Over the last 2 weeks, how often have you been bothered by the following problems? Feeling nervous, anxious or on edge: Several days Not being able to stop or control worrying: Nearly every day Worrying too much about different things: Nearly every day Trouble relaxing: Several days Being so restless that it is hard to sit still: Not at all Becoming easily annoyed or irritable: Several days Feeling afraid as if something awful might happen: Nearly every day YAYA-7 Score: (!) 12 Tobacco Counseling: Ready to quit: Not Answered Counseling given: Not Answered Patient's Medications New Prescriptions No medications on file Previous Medications BUSPIRONE (BUSPAR) 10 MG TABLET Take 10 mg by mouth every 12 (twelve) hours . BUSPIRONE (BUSPAR) 5 MG TABLET DOCUSATE SODIUM (COLACE) 100 MG CAPSULE Take 1 Unspecified by mouth every 12 (twelve) hours . FAMOTIDINE (PEPCID) 20 MG TABLET Take 1 (one) tablet (20 mg total) by mouth daily . FLU VAC QV 2020,18YR UP,RC,PF, (FLUBLOK QUAD) SYRINGE Sign this order in conjunction with the immunization order to satisfy [place] Board [employer] Positive ID requirements for immunization orders. . IBUPROFEN (ADVIL,MOTRIN) 600 MG TABLET Take by mouth every 8 (eight) hours . MAGNESIUM OXIDE (MAG-OX) 400 MG (241.3 MG MAGNESIUM) TABLET Take 1 Unspecified by mouth . METOCLOPRAMIDE (REGLAN) 5 MG TABLET Take 1 (one) tablet (5 mg total) by mouth 2 (two) times a day as needed . ONDANSETRON (ZOFRAN-ODT) 4 MG DISINTEGRATING TABLET Dissolve 4 mg on top of tongue every 6 (six) hours as needed . PNV [id number] NO.10 20 MG IRON- 1 MG TAB Take by mouth . SERTRALINE (ZOLOFT) 50 MG TABLET Take 1 (one) tablet (50 mg total) by mouth daily . Modified Medications No medications on file Discontinued Medications No medications on file Health Maintenance Due Topic Date Due Pap Smear Never done Wellness Visit Never done COVID-19 Vaccine (1) Never done Pneumococcal Vaccine: Ped or At-Risk (1 - PCV) Never done HIV Screening Never done Hepatitis C Screening Never done Assessment & Plan Problem List Items Addressed This Visit Other Sore throat Viral most likely. Plan: -Tylenol prn for pain/fever -Saline nasal rinses BID or dami pod -Use mucinex for mucous thinning as needed , robitussin DM -Hydration, air humidifier and rest promoted Relevant Orders COVID-19, Molecular (Completed) No follow-ups on file. JEREMIAS VENCES MD [facility] [address] [facility] [address] [facility] [address] Dept: [phone] Depression Screening 10/01/2020 12/03/2020 03/11/2021 04/21/2021 09/30/2021 Little interest or pleasure in doing things 3 1 2 2 1 Feeling down, depressed, or hopeless 3 1 3 2 1 PHQ-2 Total Score 6 2 5 4 2 Trouble falling or staying asleep, or sleeping too much 3 1 3 3 1 Feeling tired or having little energy 3 2 2 3 1 Poor appetite or overeating 3 1 3 3 0 Feeling bad about yourself - or that you are a failure or have let yourself or your family down 3 2 2 1 2 Trouble concentrating on things, such as reading the newspaper or watching television 3 2 3 1 0 Moving or speaking so slowly that other people could have noticed. Or the opposite - being so fidgety or restless that you have been moving around a lot more than usual 3 2 0 0 0 Thoughts that you would be better off , or of hurting yourself in some way 3 0 0 0 0 PHQ-9 Total Score 27 12 18 15 6 If you checked off any problems, how difficult have these problems made it for you to do your work, take care of things at home, or get along with other people? Extremely dIfficult Somewhat difficult Very difficult Very difficult Somewhat difficult Depression Screening 10/01/2020 12/03/2020 03/11/2021 04/21/2021 09/30/2021 Little interest or pleasure in doing things 3 1 2 2 1 Feeling down, depressed, or hopeless 3 1 3 2 1 PHQ-2 Total Score 6 2 5 4 2 Trouble falling or staying asleep, or sleeping too much 3 1 3 3 1 Feeling tired or having little energy 3 2 2 3 1 Poor appetite or overeating 3 1 3 3 0 Feeling bad about yourself - or that you are a failure or have let yourself or your family down 3 2 2 1 2 Trouble concentrating on things, such as reading the newspaper or watching television 3 2 3 1 0 Moving or speaking so slowly that other people could have noticed. Or the opposite - being so fidgety or restless that you have been moving around a lot more than usual 3 2 0 0 0 Thoughts that you would be better off , or of hurting yourself in some way 3 0 0 0 0 PHQ-9 Total Score 27 12 18 15 6 If you checked off any problems, how difficult have these problems made it for you to do your work, take care of things at home, or get along with other people? Extremely dIfficult Somewhat difficult Very difficult Very difficult Somewhat difficult documented in this encounter [facility] 09-17-2021 Note Send Summary: Discharge Summary Providers: Provider RoleProvider Name Jeremias Kaufman Note Recipients: n/a Discharge: Summary: Admission Date: .15-Sep-2021 05:31:00 Discharge Date: 17-Sep-2021 Attending Physician at Discharge: Dr. Bryant Admission Reason: Elective induction Final Discharge Diagnoses: Status post vaginal delivery Procedures: Normal spontaneous vaginal delivery Condition at Discharge: Good Disposition at Discharge: Home Physical Exam: Awake alert in no physical distress Lungs s are clear to auscultation Heart reveals a regular rate and rhythm Uterine fundus firm nontender below the umbilicus Perineum dry no blood Remedies +2 edema Psych appropriately oriented with normal mood and affect Hospital Course: Patient was brought in at 39+ weeks gestation for an elective induction. She had a cervical ripening with misoprostol and a Ramirez balloon. She progressed in labor and Pitocin was started. She proceeded to have a normal spontaneous vaginal delivery. she did have elevations in blood pressure and her PC ratio was elevated consistent with preeclampsia without severe features. On day #2 her blood pressure was still occasionally mildly elevated but no signs or symptoms of severe preeclampsia. She was discharged home with plans to check her blood pressure twice daily, preeclamptic precautions reviewed and she is to follow-up in the office the following week with her blood pressure numbers. Immunizations: Immunizations: 11-Jul-2021 Tdap: Immunizations, 11-Jul-2021 .Influenza- Influenza Virus: Immunizations, 11-Jul-2021 Discharge Information: and Continuing Care: Lab Results - Pending: None Radiology Results - Pending: None [place] Suicide Risk: negative Discharge Instructions: Activity: Return to normal activity as tolerated Nutrition/Diet: Regular Follow Up Appointments: Follow-Up - OB Provider: Physician/Dept/Service: OB Provider Dr. Bryant Call to Schedule in: 1 week Location: Outpatient office Discharge Medications: Home Medication Zoloft 100 mg oral tablet - 1 tab(s) orally once a day Protonix 20 mg oral delayed release tablet - 1 tab(s) orally once a day Colace 100 mg oral capsule - 1 cap(s) orally 2 times a day acetaminophen 325 mg oral tablet - 3 tab(s) orally every 6 hours ibuprofen 600 mg oral tablet - 1 tab(s) orally every 8 hours PRN Medication Zofran ODT 4 mg oral tablet, disintegrating - 1 tab(s) orally 3 times a day, As Needed DNR Status: Code StatusCode Status order at time of discharge: Full Code Electronic Signatures: Melanie Bryant) (Signed 17-Sep-2021 08:08) Authored: Send Summary, Summary Content, Immunizations, Ongoing Care, DNR Status, Note Completion Last Updated: 17-Sep-2021 08:08 by Melanie Bryant) [facility] 09-15-2021 Note Provider Information : Maternal Delivery Information: Delivery Type: vaginal delivery Did this pt receive corticosteroids at any time during this : No Was intraamniotic infection diagnosed during this labor: no What antibiotic(s) were administered during labor and/or pre-incision: none Did this patient receive progesterone in any form to prevent premature delivery: no Rupture of Membranes: artificial Spontaneous Labor: no Induction or Scheduled : induction Is patient at delivery >/= to 37 to < 39 completed weeks of gestation: no Vaginal Delivery Type: spontaneous Vaginal Delivery Complications: none Presentation/Lie: vertex Episiotomy & Repair: none Perineal Laceration: none Other Laceration: none Laceration Repair: yes Abrasion: none, periurethral QBL (mL): 150 mL Blood Products Transfused during Delivery (indicate number of units given): none Placenta: spontaneous Choose Baby: A Day of Delivery (Baby A): 15-Sep-2021 Gestational Age at Delivery (wk.days): 39.1 Term: term 37.0 to 41.6 weeks Live : yes Vaginal Delivery Provider: Melanie Bryant Hemorrhage Risk Screen: Hemorrhage Medium Risk Factors (T&S) (2 or more medium risks Go to High Risk section & obtain T&C)IOL with oxytocin or cervical ripening(1) Hemorrhage Risk Assessmenthemorrhage risks reviewed and additional factors added if applicable Hemorrhage Risk Score MediumPatient is at Medium Risk for an OB hemorrhage. Order Type & Screen. Score Calculation - IT Use Only1 Electronic Signatures: Melanie Bryant) (Signed 15-Sep-2021 13:38) Authored: Provider Information, Hemorrhage Risk, Note Completion Last Updated: 15-Sep-2021 13:38 by Melanie Bryant) References: 1. Data Referenced From History and Physical - OB 15-Sep-2021 07:58 [facility] 09-15-2021 Note HPI/OB History: Care Provider: Dr. Oc JOSEPH Descriptive Info: HPI Patient is a 30-year-old 8 para 4-0-3-4 with an EDC of 09/21/2021. Patient comes in for an elective induction. Patient reports good movement. Patient reports mucousy discharge. Patient denies bleeding. has been complicated by headaches, mood disorder, insomnia, tobacco use and a history of PTSD OB History: Spontaneous vaginal delivery at term x4 Spontaneous abortions x3 Labs: Labs: Labs: Blood Typed Date: 10-Mar-2021 Blood Type: O positive Antibody Screen Results: negative Chlamydia Date: 05-Mar-2021 Chlamydia Results: negative Gonorrhea Date: 05-Mar-2021 Gonorrhea Results: negative Group B Strep Date: 26-Aug-2021 Strep Results: negative GCT (dd-mmm-yy): 30-Jun-2021 GCT result: 97 HBsAG Date: 10-Mar-2021 HBsAG Results: negative HIV Date: 10-Mar-2021 HIV Results: negative Rubella Date: 10-Mar-2021 Rubella Results: immune Rubella Comments: Result Value POSITIVE Syphilis (mmm-dd-yyyy): 10-Mar-2021 Syphilis Results: negative Maternal Urine Toxicology Screen Date: 20-Jun-2021 Toxicology Screen Comments: Negative on Jun 20, 2021 Antepartum/: Antepartum/PP: Final [id number] Current EGA:39.1 Patient is > or = 35.0 wks EGAyes Determined byBright EFW (kg)3.856 kilogram(s) EFW (lb)8 pound(s) EFW (oz)8 ounce(s) Presentationcephalic presentation verified bybedside ultrasound Vaginal BleedingNo Contractions/Abdominal PainNo Discharge/Loss of FluidNo MovementGood Hemorrhage Medium Risk Factors (T&S) (2 or more medium risks Go to High Risk section & obtain T&C)IOL with oxytocin or cervical ripening Hemorrhage Risk Assessmenthemorrhage risk completed on admission Hemorrhage Risk ScorePatient is at Medium Risk for an OB hemorrhage. Order Type & Screen. Score Calculation - IT Use Only1 TOLACno Did this patient receive progesterone in any form to prevent premature deliveryno Does patient desire postplacental IUDno Past Medical/Surgical/NURSES EDUCATOR History: Mechanical Lead History: Past medical history. Mood disorder. Chronic headaches. PTSD Past surgical history is tonsillectomy Social History: Domestic Violence: No Social History: Smoking Statuslight user (uses <10 cig/day, OR <0.5 ppd, OR 1 can/pouch loose leaf tobacco per week, OR <0.5 vape pods per day) (1) Alcohol Usedenies(1) Drug Usedenies (1) Drug 2 Usedenies (1) Allergies: No Known Allergies: Medications Prior to Admission: Admission Medication Reconciliation has not been completed for this patient. Objective: Objective Information: T PRBPMAPSpO2 [id number]% Date/Time09/15 6: 7: 6: 7: 7: 6:13 Range(36.2C - 36.2C ) (80 - 83 ) (18 - 18 ) (121 - 135 )/ (82 - 82 ) (95 - 104 ) (97% - 99% ) Pain reported at 09/15 6:13: 3 = Mild Physical Exam by System: Constitutional: Awake alert in no physical distress Obstetric: Gravid uterus nontender Head/Neck: Good range of motion Respiratory/Thorax: Clear to auscultation with good air movement Cardiovascular: Regular rate and rhythm Genitourinary: Cervix is 2 cm 50% -3 station posterior and medium consistency Musculoskeletal: Good mobility Psychological: Appropriately oriented with normal mood and affect NST Interpretation - Baby A: Baseline [id number] Variabilitymoderate (amplitude range 6 to 25 bpm) AccelerationsPresent DecelerationsAbsent Recent Lab Results: Results: CBC: 09/15/2021 06:16 \ Hgb / \ 12.4 / WBC Plt 13.3 H 289 / Hct \ / 37.4 \ RBC: 4.32 MCV: 87 Neutrophil %: 72.8 Assessment and Plan: Assessment: Patient is a 30-year-old 8 para 4 at 39-1/7 weeks gestation who comes in for an elective induction. Ramirez bulb placed and vaginal misoprostol placed. Once Ramirez balloon comes out we will start Pitocin and rupture membranes. Anticipate a vaginal delivery. estimated weight 8 pounds 8 ounces. tracing reassuring\ GBS status negative Pain patient can have an epidural upon request otherwise we will give her Stadol. Electronic Signatures: Melanie Bryant) (Signed 15-Sep-2021 08:06) Authored: HPI/OB History, Labs, Antepartum/PP, Past Medical/Surgical/NURSES EDUCATOR History, Social History, Allergies, Medications Prior to Admission, Objective, Assessment and Plan, Note Completion Last Updated: 15-Sep-2021 08:06 by Melanie Bryant) References: 1. Data Referenced From Patient Profile - OB v3 15-Sep-2021 06:27 [facility] 04-21-2021 Miscellaneous Notes Associated Problem(s): Mild major depression (HCC) PHQ-9 score of 15, YAYA-7 score of 12 Stable at current doses of medications with BuSpar 5 mg as needed as well as Zoloft 100 mg managed by her tour driver at this time. Continue to monitor Associated Problem(s): Migraine with aura and without status migrainosus, not intractable Tylenol 1000 mg every 8 hours , excedrine , Mag oxide still relatively not helpful. We will try a combo of tylenol, metoclompramide, and benadryl 50 mg Discontinued topamax and imitrex for now Botox is not safe in . documented in this encounter [facility] 04-21-2021 History of Present illness Narrative Chief Complaint Patient presents with Follow-up 6 week fu anxiety and shoulder HPI: Arlene Baum is 30 years old female presenting today for follow up on anxiety and PTSD. PMH of asthma, anxiety and depression, recovering alcoholic and PTSD. Patient found out that she is , LMP 12/16/2020. Following up with OB in , . doing well overall. Migraines: Started during her , starts in the occiput creeping to the front of her head maily on the Rt side. Light sensitive and sound sensitive. CT head 2016 was normal. With auras flashy neon worms before the migraine starts. Discontinued Topamax and Imitrex with her recent .Getting worse on current regimen Tylenol and mag oxide. Anxiety and depression: Since childhood. Following up in [facility] seeing counseler Yuko' and psychiatrist . was recently on Effexor , topamax and minipress for PTSD . She was previously on Lamictal and lexapro, Intolerant to their SEs. Also Hydroxyzine and trazodone didn't work for her. Trying to get custody of her 4 kids for marijuana use, working with social media community manager , currently has medical marijuana card. Does report that most of her panic attacks are related to flashbacks from previous police encounters in her childhood that when she had a curtsey stop recently by a police cadet she resisted and ended up having 3 charges just from having flasback memories from her childhood about it and even talking about it in the clinic made her really anxious about it. Since getting she stopped all her meds and had major withdrawal off Effexor as if she was drugged. wood processing worker suggested that she explores EMDR treatment with her therapist Sapna in [facility], still in the works. OB prescribed Buspar on top of the Zoloft increased to 100 mg last week, feels it has been slightly helping less fidgety and quieter. Stable on current doses of medications. Past Medical History: Diagnosis Date Anxiety Asthma Hematuria Past Surgical History: Procedure Laterality Date TONSILLECTOMY Family History Problem Relation Age of Onset Schizophrenia Mother Bipolar disorder Mother Stroke Mother Hypertension Sister Other (Pill addiction) Sister Leukemia Maternal Grandfather Heart disease Other Stroke Other Social History Tobacco Use Smoking status: Current Some Day Smoker Packs/day: 1.00 Years: 12.00 Pack years: 12.00 Types: Cigarettes Smokeless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 Directives No Advanced Directives Records FoundDocuments on File Type Date Recorded Patient Private Wealth Advisor Expl anation Advance Directives and Living Will Documents on File Type Date Recorded Patient Private Wealth Advisor Expl anation Advance Directives and Livin g Will 03/03/2021 10:26 AM Documents on File Type Date Recorded Patient Private Wealth Advisor Expl anation Advance Directives and Livin g Will 03/03/2021 10:26 AM Procedure Findings Note HNO ID: [id number] Author: Deni Layton Service: ? Author Type: Physician Type: Procedures Filed: 04/18/2019 5:20 PM Note Text: CYSTOSCOPY PROCEDURE NOTE: Arlene Titus is a 28 year old female who presents with hematuria gross for a cystoscopy. Pt ID verified with patient: Yes Procedure verified with patient: Yes Procedure confirmed with physician and support services tech: Yes Sign In: History and Physical Exam reviewed and is unchanged. Primary Diagnosis: Hematuria Informed Consent Discussed: Yes. Risks, benefits, alternatives and personnel discussed with patient who consents to proceed. Sign in Communication: Completed Time Out: Team Confirms the Correct Patient, Correct Procedure; Cystoscopy, Correct Site and Site Marking, Correct Position (if applicable). Affirmation of Time Out: Yes Sign Out: Sign Out Discussion: Completed Physician: Manuel Layton DO, MBA A urinalysis was performed revealing no evidence of infection. The benefits, risks, alternatives of the cystoscopy procedure an (more content not included)... Chief Complaint patient presents today for conformation of stating she is having breast tenderness with n/v. lmp 1Patient here today for blood pressure check. States she is overall feeling well. She had one episode of blurry vision while driving but only last a minute. She has had headaches in the front of head and behind her eyes. Blood pressure log brought in. Reason for Referral Specialty Diagnoses / Procedures Referred By Aspen boswell Referred To Contact Sports Medicine Diagnoses Right shoulder pain, unspecified chronicity Jeremias Vences MD [address] [place] [address] Reyna Nicholson, CHECKERING MACHINE OPERATOR [address] [place] [address] Referral ID Status Reason Start Date Expiration Date V isits Requested Visits Authorized [id number] Authorized 03/03/2021 03/03/2022 1 1 Specialty Diagnoses / Procedures Referred By Aspen boswell Referred To Contact Psychiatry Diagnoses PTSD (post-traumatic stress disorder) Mild major depression (HCC) Jeremias Vences MD [address] [place] [address] Diamond Decker MD [facility] [place] [address] Referral ID Status Reason Start Date Expiration Date V isits Requested Visits Authorized [id number] Authorized 04/02/2021 04/02/2022 1 1 Additional Source Comments INFORMATION SOURCE (unrecogn ized section and content) DATE CREATED AUTHOR AUTHOR'S ORGANIZ ATION 04/14/2019 [facility] DATE CREATED AUTHOR AUTHOR'S ORGANIZ ATION 04/19/2019 [facility] DATE CREATED AUTHOR AUTHOR'S ORGANIZ ATION 10/06/2020 [facility] DATE CREATED AUTHOR AUTHOR'S ORGANIZ ATION 03/13/2021 [facility] DATE CREATED AUTHOR AUTHOR'S ORGANIZ ATION 07/13/2021 [facility] DATE CREATED AUTHOR AUTHOR'S ORGANIZ ATION 09/21/2021 [facility] DATE CREATED AUTHOR AUTHOR'S ORGANIZ ATION 10/01/2021 [facility] DATE CREATED AUTHOR AUTHOR'S ORGANIZ ATION 10/31/2021 [employer] DATE CREATED AUTHOR AUTHOR'S ORGANIZ ATION 06/10/2022 [facility] Reason for Visit (unrecogniz ed section and content) Reason Comments Follow-up 1 MONTH Reason Comments Follow-up 1 mon medication fol low up Reason Comments Medication Problem Reason Comments Annual Exam Pt here today for an nual physical - following with for . Reason Comments Pain Specialty Diagnoses / Procedures Referred By Aspen t Referred To Contact Sports Medicine Diagnoses Right shoulder pain, unspecified chronicity Jeremias Vences MD [address] [place] [address] Reyna Nicholson, CHECKERING MACHINE OPERATOR [address] [place] [address] Referral ID Status Reason Start Date Expiration Date Visits Re quested Visits Authorized [id number] Closed 03/03/2021 03/03/2022 1 1 Reason Comments Follow-up 6 week fu anxiety an d shoulder Reason Comments Other Throat is scratchy Care Teams (unrecognized sec tion and content) Catalogue Maker Relationship Specialty Start Date End Date Jeremias Vences MD [facility] [place] [id number] PCP - General Family Medicine 10/01/20 Catalogue Maker Relationship Specialty Start Date End Date Jeremias Vences MD [address] [place] [address] PCP - General Family Medicine 10/01/20 Catalogue Maker Relationship Specialty Start Date End Date Jeremias Vences MD [facility] [place] [id number] PCP - General Family Medicine 10/01/20 Catalogue Maker Relationship Specialty Start Date End Date Jeremias Vences MD [address] [place] [id number] PCP - General Family Medicine 10/01/20 Catalogue Maker Relationship Specialty Start Date End Date Jeremias Vences MD [address] [address] PCP - General Family Medicine 10/01/20 Catalogue Maker Relationship Specialty Start Date End Date Jeremias Vences MD [address] [address] PCP - General Family Medicine 10/01/20 Catalogue Maker Relationship Specialty Start Date End Date Jeremias Vences MD [address] [address] PCP - General Family Medicine 10/01/20 <item><item> Privacy Markings (unrecogniz ed section and content) Section Author: Erika Ch PROHIBITION ON REDISCLOSURE OF CONFIDENTIAL INFORMATION This notice accompanies a disclosure of information concerning a client made to you with the consent of such client. Section Author: Erika Ch PROHIBITION ON REDISCLOSURE OF CONFIDENTIAL INFORMATION This notice accompanies a disclosure of information concerning a client made to you with the consent of such client. FOR RECORDS PERTAINING TO PATIENTS WHO ARE OR HAVE BEEN ENROLLED IN A CHEMICAL DEPENDENCY/SUBSTANCEABUSE PROGRAM, SOME INFORMATION MAY BE OMITTED. This clinical summary was aggregated from multiple sources. Caution should be exercised in using it in the provision of clinical care. This summary normalizes information from multiple sources, and as a consequence, information in this document may materially change the coding, format and clinical context of patient data. In addition, data may be omitted in some cases. CLINICAL DECISIONS SHOULD BE BASED ON THE PRIMARY CLINICAL RECORDS. [facility] [employer] [facility]. provides no warranty or guarantee of the accuracy or completeness of information in this document.
== END 2023-04-13 10:50 | disposition home or self-care (01) ==
LOC: ED 10:34
PROVIDERS: Emergency Provider Emergency Medicine; Visit Provider Emergency Medicine
DX: U07.1 COVID-19 (principal); J45.909 Unspecified asthma, uncomplicated; F17.210 Nicotine dependence, cigarettes, uncomplicated; Z79.1 Long term (current) use of non-steroidal anti-inflammatories (NSAID)
CPT/HCPCS: 87811; 99282

== ENCOUNTER → 2023-08-04 | Outpatient (CLI) | payer OTHER, SELFPAY ==
[2023-08-04 13:02] LABS: Absolute Lymphocyte Count 3.66 X10^3/uL (0.83-4.51); Absolute Neutrophil Count 6.3 X10^3/uL (2.0-7.7); Basophil# 0.04 X10^3/uL; Basophil% 0.4 % (0-1); Eosinophil# 0.22 X10^3/uL; Hematocrit 43.7 % (37-47); Hemoglobin 14.3 g/dL (12.0-15.0); Lymphocyte # 3.66 X10^3/ul (0.83-4.51); Lymphocyte % 33.8 % (19-41); Mean Corp Hgb Conc 32.7 g/dL (32-36); Mean Corpuscular Hgb 29.1 pg (27.0-32.0); Mean Corpuscular Volume 88.8 fL (81-99); Mean Platelet Vol. 10.2 fl (6.2-12.0); Monocyte# 0.61 X10^3/uL; Monocyte% 5.6 % (0-10); NRBC Flagged by Analyzer 0 % (0-5); Neutrophil # 6.29 X10^3/uL (2.7-7.7); Platelet Count 282 K/mm3 (150-450); RBC Distribution Width CV 12.2 % (11.6-14.6); RBC Distribution Width SD 39.4 fl (35.1-43.9); Red Blood Count 4.92 M/mm3 (4.2-5.4); White Blood Count 10.8 K/mm3 (4.4-11.0)
[2023-08-04 13:52] LABS: Hemoglobin A1c 4.9 % (3.8-5.6)
[2023-08-04 14:16] LABS: ALB/GLOB Ratio 1.1 RATIO (0.9-2.4); AST(SGOT) 10 U/L (15-37); Alanine Aminotransfer ALT/SGPT 16 U/L (13-56); Albumin, Serum 3.8 g/dL (3.2-5.0); Alkaline Phosphatase 62 U/L (45-117); Anion Gap 2 (5-15); BUN 9 mg/dL (7-18); BUN/Creat Ratio 12.7 RATIO (10-20); Calcium,Total 9.3 mg/dL (8.5-10.1); Chloride 106 mmol/L (98-107); Cholesterol 131 mg/dL (200); Creatinine, Serum 0.71 mg/dL (0.55-1.02); EST Glomerular Filtration Rate 101 mL/min (>60); Est Glom Filt Rate - Afr Amer 122 mL/min (>60); Globulin 3.4 g/dL (2.2-4.2); Glucose 104 mg/dL (74-106); High Density Lipoprotein 43 mg/dL; Potassium 3.4 mmol/L (3.5-5.1); Protein, Total 7.2 g/dL (6.4-8.2); Sodium Level 138 mmol/L (136-145); Thyroid Stim Hormone (TSH) 0.75 uIU/mL (0.358-3.74); Triglycerides 90 mg/dL; Very Low Density Lipoprotein 18 mg/dL (5-40)
== END | disposition home or self-care (01) ==
LOC: LAB 12:47
PROVIDERS: PCP Nurse Practitioner Family; Referring Provider Nurse Practitioner Family; Visit Provider Nurse Practitioner Family
DX: R31.9 Hematuria, unspecified (principal); E66.9 Obesity, unspecified; G43.909 Migraine, unspecified, not intractable, without status migrainosus
CPT/HCPCS: 36415; 80053; 80061; 83036; 84443; 85025

== ENCOUNTER 2023-09-03 03:29 | Emergency (ER) | payer OTHER, SELFPAY ==
[2023-09-03 03:29] VITALS: BP 116/68; PULSE 62; RESP 18; TEMP 35.8; O2SAT 98; BMI 35.9
[2023-09-03] MEDS: Clindamycin HCl 150 MG Capsule 300 MG PO (03:51)
[2023-09-03] MEDS: Bupivacaine Mpf 0.5% 30 ML VIAL INFILT (03:54)
--- NOTE | 2023-09-03 04:06 | EX.ED.DYSGE1 ---
HPI History of Present Illness Chief Complaint: Dental Informant: patient and spouse/S.O. Narrative Narrative: Patient is a 32-year-old female with past medical history of tobacco use. She states she has a history of bad teeth as well. She states that she will occasionally get pain in the teeth but can get rid of it by swishing with salt water. She said over the last 1 to 2 days there has been no trauma and she denies any fevers chills difficulty breathing or swallowing. However she has had increasing pain in the right lower jaw and has concern for infection and therefore she comes in for evaluation [facility] Home Medications ?Medication ?Instructions ?Recorded ?Last Taken ?Type clindamycin HCl 300 mg capsule 300 mg PO 4X/DAY 10 days #40 caps 09/03/23 Unknown Rx oxycodone-acetaminophen 5 mg-325 1 tab PO Q6H PRN pain 3 days #12 09/03/23 Unknown Rx mg tablet (Endocet) tabs Allergy/AdvReac Type Severity Reaction Status Date / Time No Known Allergies Allergy Verified 09/03/23 03:33 Social History Smoking Status: Current every day smoker tobacco type: cigarettes ROS ROS ED Constitutional Constitutional ED: Denies chills or fever(s) ENT ENT ED: Reports ear pain right and other Details: Positive dental pain ; Denies sore throat Cardiovascular Cardiovascular: Denies chest pain Respiratory/Chest Respiratory/Chest: Denies cough or dyspnea Gastrointestinal Gastrointestinal: Denies abdominal pain, diarrhea, nausea or vomiting Genitourinary Genitourinary ED: Denies dysuria Musculoskeletal Musculoskeletal: Denies myalgias Integumentary Denies rash Neurologic Neurologic: Denies headache(s) Hematologic/Lymphatic Hematologic/Lymphatic: Denies easy bleeding or easy bruising Allergic/Immunologic Allergic/Immunologic ED: Denies mouth swelling or tongue swelling EXAM Physical Exam Const Vital Signs: 09/03/23 03:29 Temperature 96.5 F L Temperature Source Temporal Pulse Rate 62 Respiratory Rate 18 Blood Pressure 116/68 Blood Pressure Mean 84 Pulse Ox 98 Oxygen Delivery Method Room Air Positive well nourished, well developed and obese General Appearance ED: well developed; Negative for pallor Nutritional Appearance: obese HEENT Reports moist mucous membranes HEENT Narrative: Dental caries noted in the right lower jaw without obvious findings to suggest dental abscess No tongue or lip swelling. No oral lesions. No airway edema or compromise No signs of ANUG Eyes PERRL and EOMs intact bilaterally Neck supple Neck Narrative: No brawny edema in the submental space to suggest Jonatan's angina Resp normal respiratory effort and clear to auscultation bilaterally Cardio regular rate and regular rhythm Extremity normal to inspection Neuro oriented x3, CN's II-XII intact bilaterally and no sensory deficits noted Sensorium / Orientation: alert Motor Exam: strength 5/5 throughout Psych mental status grossly normal Skin no rashes or lesions noted and no wounds General Skin Exam: Negative for jaundice or pallor MDM MDM MDM Narrative Medical decision making narrative: Patient arrived to the ER with stable vitals. She complained of dental pain with no trauma. Differential diagnosis is for dental abscess versus dental infection secondary to dental caries versus Jonatan angina versus ANUG. Physical exam did not show signs of ANUG there was also no physical exam findings to suggest Jonatan's angina. Patient complained of pain in the right ear but physical exam does not show any signs of otitis media or otitis externa indicating the ear pain is referred from the jaw. At this time she does not have airway edema or compromise or signs of systemic infection there is no need for imaging or laboratory studies. Patient was placed on antibiotics secondary to the infectious process but as there is no signs of systemic infection is otherwise safe for discharge. She was given a dental block as documented below to help with pain control Patient received a right inferior alveolar dental block using 1.5 mL of 0.5% Marcaine and 1.5 mL of 1% lidocaine with epinephrine. Patient achieved good anesthesia with the injection and tolerated procedure well without complication. History & Record Review Discussion w/independent historian: Patient Discharge Plan Triage Chief Complaint: Dental ED Provider: Jas Salas Dx/Rx/DC Orders Clinical Impression: Dental infection, Dental caries, Tobacco use Instructions: ED Dental Pain, ED Dental Cavity Prescriptions: New clindamycin HCl 300 mg capsule 300 mg PO 4X/DAY 10 Days Qty: 40 0RF oxycodone-acetaminophen [Endocet] 5-325 mg tablet 1 tab PO Q6H PRN (Reason: pain) 3 Days Qty: 12 0RF Stand Alone Forms: ED Work / School Excuse Primary Care Provider: Jazzy Cevallos Referrals: Jazzy Cevallos, ROAD MACHINERY INSPECTOR-C [Primary Care Provider] - Print Language: Nepali Disposition Disposition: Home, Self Care
[2023-09-03 04:15] VITALS: BP 115/40; PULSE 64; RESP 18; TEMP 36.7; O2SAT 96
== END 2023-09-03 04:16 | disposition home or self-care (01) ==
PROVIDERS: Emergency Provider Emergency Medicine; PCP Nurse Practitioner Family; Visit Provider Emergency Medicine
DX: K04.7 Periapical abscess without sinus (principal); R68.84 Jaw pain; K02.9 Dental caries, unspecified; F17.210 Nicotine dependence, cigarettes, uncomplicated
CPT/HCPCS: 64400; 64999; 99282

== ENCOUNTER 2024-06-17 00:35 | Outpatient (CLI) | payer MEDICAID, SELFPAY ==
[2024-06-17 00:50] VITALS: RESP 18; TEMP 36.7
[2024-06-17 00:52] VITALS: BP 131/83; PULSE 81
[2024-06-17 01:16] VITALS: BMI 45.8
--- NOTE | 2024-06-18 07:28 | OB.TRI.NOTE ---
HPI - General HPI Narrative DANNY BAUM, is a 33 F @ 39.3 weeks who presents c/o ctx- r/o labor PFSH PFS Home Medications ?Medication ?Instructions ?Recorded ?Last Taken ?Type albuterol sulfate 90 mcg/actuation 1 - 2 puff inhalation 06/17/24 Unknown History aerosol inhaler aspirin 81 mg capsule 81 mg PO DAILY 06/17/24 06/17/24 History azelastine 137 mcg (0.1 %) nasal 2 spray intranasal BID 06/17/24 Unknown History spray famotidine 20 mg tablet 20 mg PO DAILY 06/17/24 06/17/24 History sertraline 50 mg tablet (Zoloft) 50 mg PO DAILY 06/17/24 06/17/24 History Allergy/AdvReac Type Severity Reaction Status Date / Time No Known Allergies Allergy Verified 06/17/24 00:54 Social History Smoking Status: Current every day smoker tobacco type: cigarettes History Elective abortions Hx Para 3 Spontaneous abortions Hx # Term Pregnancies Ectopic pregnancies Hx # Pregnancies Multiple births # of living children Physical Exam Narrative per RN- /-1 (exam on arrival /) NST FHR Rate Baby A Baseline: 125 Variability:: Moderate Accelerations:: 15 x 15 Decelerations:: None NST Reactive:: Yes FHR Category:: Category I Uterine Activity:: Q3-7 min Assessment & Plan (1) False labor: (2) Grand multiparity with current : PLAN: Plan 33yo @ 39.3 weeks - false labor 1) NST reactive, cat 1 2) pt was kept for approx 2+ hrs with minimal cervical change and was comfortable with discharge home.
== END 2024-06-17 03:25 | disposition home or self-care (01) ==
LOC: WPOUT 00:39 → WP 00:39
PROVIDERS: PCP Nurse Practitioner Family; Referring Provider Obstetrics & Gynecology; Visit Provider Obstetrics & Gynecology
DX: O47.1 False labor at or after 37 completed weeks of gestation (principal); O09.43 Supervision of pregnancy with grand multiparity, third trimester; O99.333 Smoking (tobacco) complicating pregnancy, third trimester; F17.210 Nicotine dependence, cigarettes, uncomplicated; Z3A.39 39 weeks gestation of pregnancy; Z79.899 Other long term (current) drug therapy
CPT/HCPCS: 59050; 99221; G0378

== ENCOUNTER 2024-06-21 05:25 | Outpatient (CLI) | payer MEDICAID, SELFPAY ==
[2024-06-21 08:25] VITALS: BP 122/68; PULSE 73
[2024-06-21 08:27] VITALS: BP 122/68; PULSE 78; RESP 16; TEMP 36.3; O2SAT 98
[2024-06-21 08:37] VITALS: BMI 45.1
--- NOTE | 2024-06-21 09:39 | NURSING ---
0924 pt left without discharge instructions
--- NOTE | 2024-06-21 18:13 | OB.TRI.NOTE ---
HPI - General HPI Narrative DANNY BAUM, is a 33 F at 40 weeks who presents for induction of labor for LGA. Patient arrived to unit 2 hours before induction to start. Due to staffing and unit acuity, induction was not able to be started. NST completed and patient rescheduled for tomorrow AM. PFSH PFSH Home Medications ?Medication ?Instructions ?Recorded ?Last Taken ?Type albuterol sulfate 90 mcg/actuation 1 - 2 puff inhalation PRN 06/17/24 Unknown History aerosol inhaler aspirin 81 mg capsule 81 mg PO DAILY 06/17/24 06/20/24 12:00 History famotidine 20 mg tablet 20 mg PO DAILY 06/17/24 06/20/24 12:00 History sertraline 50 mg tablet (Zoloft) 50 mg PO DAILY 06/17/24 06/20/24 12:00 History multivitamin with minerals-folic 1 tab PO DAILY 06/21/24 06/20/24 12:00 History acid 200 mcg chewable tablet (Adult Multivitamin Gummies) Allergy/AdvReac Type Severity Reaction Status Date / Time No Known Allergies Allergy Verified 06/21/24 08:33 Social History Smoking Status: Current every day smoker tobacco type: cigarettes History Elective abortions Hx Para 3 Spontaneous abortions Hx # Term Pregnancies Ectopic pregnancies Hx # Pregnancies Multiple births # of living children NST FHR Rate Baby A Baseline: 130 Variability:: Moderate Accelerations:: 15 x 15 Decelerations:: None NST Reactive:: Yes FHR Category:: Category I Uterine Activity:: irritability Assessment & Plan (1) Grand multiparity with current : (2) Multiparity: (3) 40 weeks gestation of : (4) Obesity affecting : COMMENT: BMI 45 (5) History of depression: (6) ADHD: (7) History of anxiety: (8) LGA (large for gestational age) fetus: COMMENT: EFW 98%, AC >99% @36 week (9) Vapes non-nicotine containing substance: COMMENT: Vapes THC (10) Lost custody of children: PLAN: Plan Positive movements NST reactive Due to acuity of unit and additional patients being admitted, patient discharged home with scheduling for induction tomorrow morning at 0700. Dr. Munoz aware of plan of care and is collaborating physician
== END 2024-06-21 09:13 | disposition home or self-care (01) ==
LOC: WPOUT 05:32 → WP 05:33
PROVIDERS: PCP Nurse Practitioner Family; Referring Provider Obstetrics & Gynecology; Visit Provider Obstetrics & Gynecology
DX: O36.63X0 Maternal care for excessive fetal growth, third trimester, not applicable or unspecified (principal); Z3A.40 40 weeks gestation of pregnancy; O09.43 Supervision of pregnancy with grand multiparity, third trimester; O99.323 Drug use complicating pregnancy, third trimester; F12.90 Cannabis use, unspecified, uncomplicated; O99.333 Smoking (tobacco) complicating pregnancy, third trimester; F17.210 Nicotine dependence, cigarettes, uncomplicated; Z79.82 Long term (current) use of aspirin; Z79.899 Other long term (current) drug therapy
CPT/HCPCS: 59025

== ENCOUNTER 2024-06-22 07:05 | Inpatient (IN) | payer MEDICAID, SELFPAY ==
[2024-06-22] VITALS (64 sets, daily range): BP systolic 93–162; BP diastolic 54–88; PULSE 78–121; RESP 14–18; TEMP 36.1–37; O2SAT 95–100; BMI 45.3
[2024-06-22] MEDS: Lactated Ringers 1,000 ML 50 ML IV ×2 (07:45→15:39)
[2024-06-22 08:02] LABS: Absolute Lymphocyte Count 3.18 X10^3/uL (0.83-4.51); Absolute Neutrophil Count 7.1 X10^3/uL (2.0-7.7); Basophil# 0.03 X10^3/uL; Basophil% 0.3 % (0-1); Eosinophil# 0.25 X10^3/uL; Eosinophils% 2.2 % (0-5); Hematocrit 33.9 % (37-47); Lymphocyte # 3.18 X10^3/ul (0.83-4.51); Lymphocyte % 27.9 % (19-41); Mean Corp Hgb Conc 32.4 g/dL (32-36); Mean Corpuscular Volume 83.1 fL (81-99); Mean Platelet Vol. 10.8 fl (6.2-12.0); Monocyte# 0.79 X10^3/uL; Monocyte% 6.9 % (0-10); NRBC Flagged by Analyzer 0 % (0-5); Neutrophil # 7.12 X10^3/uL (2.7-7.7); Neutrophil % 62.3 % (47-70); Platelet Count 314 K/mm3 (150-450); RBC Distribution Width CV 13.2 % (11.6-14.6); Red Blood Count 4.08 M/mm3 (4.2-5.4); White Blood Count 11.4 K/mm3 (4.4-11.0)
[2024-06-22] MEDS: Penicillin G Pot 5,000,000 UNITS in 0.9% Normal Saline (100mL MB+) 100 ML 150 UNITS IV (08:06)
[2024-06-22] MEDS: Oxytocin 15 Units/NS 250ml 15 UNITS/250 ML IV.SOLN 2 UNITS IV (08:13)
--- NOTE | 2024-06-22 08:43 | PCM.HP.OB ---
HPI - General General Date of Admission: 06/22/24 Date of Service: 06/22/24 HPI Narrative DANNY BAUM, is a 33 F who presents for induction. Maternal Data Information Final NEVILLE: 06/21/24 Gestational age: 40&1 PFSH [facility] Medical History (Updated 06/22/24 @ 08:[address] Nathan Gandhi MD) Asthma depression Headache Home Medications ?Medication ?Instructions ?Recorded ?Last Taken ?Type albuterol sulfate 90 mcg/actuation 1 - 2 puff inhalation PRN asthma 06/17/24 Unknown History aerosol inhaler aspirin 81 mg capsule 81 mg PO DAILY prohylaxis 06/17/24 06/21/24 12:00 History famotidine 20 mg tablet 20 mg PO DAILY Acid Reflux 06/17/24 06/21/24 12:00 History sertraline 50 mg tablet (Zoloft) 50 mg PO DAILY Depression 06/17/24 06/21/24 12:00 History multivitamin with minerals-folic 1 tab PO DAILY 06/21/24 06/21/24 12:00 History acid 200 mcg chewable tablet (Adult Multivitamin Gummies) Allergy/AdvReac Type Severity Reaction Status Date / Time No Known Allergies Allergy Verified 06/22/24 07:42 Surgical History History of surgery Social History Smoking Status: Former smoker History Elective abortions Hx Para 5 Spontaneous abortions Hx # Term Pregnancies Ectopic pregnancies Hx # Pregnancies Multiple births # of living children NST FHR Rate Baby A Baseline: 135 Variability:: Moderate Accelerations:: 15 x 15 Decelerations:: None Uterine Activity:: Irregular Vital Signs Vital Signs Vital Signs: 06/22/24 07:39 06/22/24 07:39 06/22/24 07:39 Temperature Temperature Source Temporal Pulse Rate 81 Respiratory Rate Blood Pressure 124/75 H BP Systolic 124 BP Diastolic 75 Pulse Ox 06/22/24 07:39 06/22/24 07:39 06/22/24 07:39 Temperature 97.2 F L Temperature Source Pulse Rate Respiratory Rate 18 Blood Pressure BP Systolic BP Diastolic Pulse Ox 97 06/22/24 07:40 06/22/24 07:40 06/22/24 08:42 Temperature Temperature Source Pulse Rate 78 Respiratory Rate Blood Pressure 138/88 H BP Systolic 138 BP Diastolic 88 Pulse Ox 96 06/22/24 08:42 Temperature Temperature Source Pulse Rate 86 Respiratory Rate Blood Pressure BP Systolic BP Diastolic Pulse Ox Weight Weight: 247 lb 12.8 oz Body Mass Index (BMI) 45.3 Physical Exam Const alert and oriented x3 Resp normal respiratory effort GI non-tender and non-distended Inspection: gravid external exam normal Narrative: 3cm per RN Labs Labs Labs: Blood Type O POSITIVE Antibody Screen NEGATIVE Hct 33.9 % (37-47) L Hgb 11.0 g/dL (12.0-15.0) L Syphilis Total Ab Nonreactive (Nonreactive) VZV IgG Antibody < 135 index (Immune >165) L Rubella IgG Antibody 115.3 IU/mL Hep Bs Antigen Negative (Negative) Hepatitis C Ab (EIA) <0.1 s/co ratio (0.0-0.9) HIV 1&2 Antibody Non-Reactive (Nonreactive) Glucose 1 Hr 50 gm 129 mg/dL (70-140) Rhogam given: No Assessment & Plan (1) LGA (large for gestational age) fetus: COMMENT: @ 40&1 (2) 40 weeks gestation of : (3) Obesity affecting : QUALIFIERS: Obesity type affecting : unspecified obesity Trimester: third trimester Qualified Code(s): O99.213 - Obesity complicating , third trimester PLAN: Plan ADmit to L&D Induction - on pitocin GBS positive - on pcn Pain - epidural as desired EFW - 10lbs per recent US and patient with adequate pelvis ROutine care
[2024-06-22 10:00] LABS: Syphilis Antibodies Nonreactive (Nonreactive)
[2024-06-22] MEDS: Penicillin G 3,000,000 Units 50 ML 100 UNITS IV ×2 (12:31→17:19)
--- NOTE | 2024-06-22 12:44 | PCM.PN.BLA ---
Progress Note pt seen at bedside, VE: /-2 AROM performed, clear fluid. Continue Pitocin.
--- NOTE | 2024-06-22 13:45 | PCM.PN.BLA ---
Progress Note pt examined at bedside- VE: /-2 IFM placed.
[2024-06-22 14:32] LABS: Amphetamine Urine NEGATIVE (<1000 ng/mL); Barbiturate Urine NEGATIVE (< 200 ng/mL); Benzodiazepine Urine NEGATIVE (< 200 ng/mL); Buprenorphine Urine NEGATIVE (< 200 ng/mL); Cocaine Urine NEGATIVE (< 300 ng/mL); Fentanyl, Urine NEGATIVE; Methadone Urine NEGATIVE (< 300 ng/mL); Opiates Urine NEGATIVE (< 300 ng/mL); Oxycodone, Urine NEGATIVE (< 100 ng/mL); PCP Urine NEGATIVE (< 25 ng/mL); THC Urine NEGATIVE (< 50 ng/mL)
--- NOTE | 2024-06-22 15:17 | OB.VAGDELI_ITS ---
Maternal Data Information NEVILLE Calculator Estimated Delivery Date Method Current WG Current Estimate 06/21/24 Manual 40w 1d Vaginal Delivery Maternal Presentation Maternal Presentation: Elective Induction Type of Induction: Pitocin and Amniotomy Vaginal Delivery Information Procedure Performed: Spontaneous Vaginal Delivery Surgeon/Practitioner: Nathan Gandhi Date of Procedure: 06/22/24 Pre-Procedure Diagnosis: Suspected LGA infant Post-Procedure Diagnosis: Same Type of anesthesia: Epidural Estimated Blood Loss: 500ml Findings Description of procedure: Called to room when patient C/C/+2. She was prepped & draped. Patient pushed well to deliver the head. Double nuchal cord clamped and cut. head was gently guided to allow delivery of anterior and posterior shoulders. No excess traction placed on the head. The body delivered. Placenta delivered with gentle traction and good uterine tone obtained. Presentation: JUWAN Amniotic Membrane Rupture Type: Artificial Amniotic Fluid Description: Clear Placental Delivery Description: Expressed Placenta Disposition: [facility] Specimen collected: No Cord Vessel Description: 3 Vessels Cord Entanglement: Around neck x 2, tight Nuchal Cord Compression: With compression Infant A Gender: Male (1 minute): 7 (5 minute): 9 Delayed Cord Clamping: Yes Real Estate Underwriter switchboard wire worker helper: No Post Vaginal Deli Medications given after delivery: IV Pitocin, IM Methergin and Other (Rectal cytotec) Episiotomy Description: None Laceration: None Complication Complications: No
[2024-06-22] MEDS: fentaNYL-bupivacaine (epidural) 100 ML BAG EPIDURAL (16:50)
[2024-06-22] MEDS: Lactated Ringers 1,000 ML 200 ML IV (17:19)
[2024-06-22] MEDS: Oxytocin 15 Units/NS 250ml 15 UNITS/250 ML IV.SOLN 83 UNITS IV (20:42)
[2024-06-22] MEDS: Oxytocin 15 Units/NS 250ml 15 UNITS/250 ML IV.SOLN 999 UNITS IV (20:42)
[2024-06-22] MEDS: Methylergonovine 0.2 MG/ML Ampul IM (20:45)
[2024-06-22] MEDS: miSOPROStol 200 MCG Tablet 1000 MCG RC (21:26)
[2024-06-23] VITALS (10 sets, daily range): BP systolic 114–150; BP diastolic 57–78; PULSE 77–95; RESP 16; TEMP 36.1–36.8; O2SAT 98
[2024-06-23] MEDS: Ibuprofen 600 MG Tablet PO ×2 (06:07→11:59)
[2024-06-23] MEDS: Sertraline 50 MG Tablet PO (09:58)
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
--- NOTE | 2024-06-23 18:05 | PCM.PN.CNM ---
Subjective Subjective Patient seen at bedside. Denies any pain. Ambulating and voiding without difficulty. Lochia decreasing. Objective Data Objective Data Vital Signs: Vital Signs Temp Pulse Resp BP Pulse Ox O2 Del Method 97.4 F L 88 16 114/69 98 Room Air 06/23/24 15:35 06/23/24 15:35 06/23/24 15:35 06/23/24 15:35 06/23/24 03:13 06/23/24 03:13 Oxygen Delivery Method Room Air Weight: 247 lb 12.8 oz Body Mass Index (BMI) 45.3 Intake & Output: Intake and Output for Last 24 Hours 06/21/24 06/22/24 06/23/24 23:59 23:59 23:59 Intake Total 3594.26 / 3594.26 0 / 0 Output Total 1050 / 1050 600 / 600 Balance 2544.26 / 2544.26 -600 / -600 Lab / Micro Data Attestation: I reviewed the patient's lab results. 06/22/24 07:45 ROS Eyes Eyes: Denies blurry vision, change in vision or spots in vision ENT HEENT: Denies dizziness or headache(s) Cardiovascular Cardiovascular: Denies abdominal pain, chest pain or dyspnea Respiratory/Chest Respiratory/Chest: Denies cough, dyspnea, shortness of breath at rest or shortness of breath with exertion Gastrointestinal Gastrointestinal: Denies abdominal pain, diarrhea or vomiting Genitourinary Genitourinary: Denies change in urinary stream, difficulty urinating or dysuria Musculoskeletal Musculoskeletal: Reports none Integumentary Integumentary: Denies rash Neurologic Neurologic: Denies dizziness, headache(s), memory loss or weakness Physical Exam Const alert and no apparent distress General Appearance: cooperative and comfortable Exam Limitations: no limitations HEENT normocephalic Eyes General Eye: normal appearance of both eyes Neck full ROM General: normal visual inspection Chest Chest: symmetrical chest wall rise Resp normal respiratory effort and normal air movement Effort and Inspection: symmetric chest movement Auscultation: clear to auscultation bilaterally Cardio regular rate and regular rhythm GI normal to inspection, nondistended, normoactive bowel sounds Back/Spine normal ROM Extremity full ROM and no calf tenderness General Extremity: normal exam except as noted Skin no rashes or lesions noted Neuro oriented x3 Speech: speech normal Psych mental status grossly normal Thought Process: normal thought process Assessment & Plan (1) Lost custody of children: (2) Vapes non-nicotine containing substance: COMMENT: Vapes THC (3) History of anxiety: (4) ADHD: (5) History of depression: (6) Obesity affecting : QUALIFIERS: Trimester: third trimester Obesity type affecting : unspecified obesity Qualified Code(s): O99.213 - Obesity complicating , third trimester (7) (spontaneous vaginal delivery): (8) Care and examination of lactating mother: PLAN: Plan PPD 1 Routine care support Social service consult Desires discharge home tomorrow
[2024-06-24] MEDS: Ibuprofen 600 MG Tablet PO (01:08)
[2024-06-24 01:10] VITALS: BP 137/74; PULSE 68
[2024-06-24 01:25] VITALS: BP 137/74; PULSE 68; RESP 16; TEMP 36.7; O2SAT 98
--- NOTE | 2024-06-24 08:07 | PCM.DC.SUM ---
Providers Date of Admission: 06/22/24 Primary Care Physician: Jazzy Cevallos [facility], WAITER-C Reason For Visit: VAG Diagnosis Discharge Diagnosis (1) Lost custody of children: Status: Acute Code(s): Z65.3 - Problems related to other legal circumstances (2) Vapes non-nicotine containing substance: Status: Acute Code(s): Z72.89 - Other problems related to lifestyle (3) History of anxiety: Status: Acute Code(s): Z86.59 - Personal history of other mental and behavioral disorders (4) ADHD: Status: Acute Code(s): F90.9 - Attention-deficit hyperactivity disorder, unspecified type (5) History of depression: Status: Acute Code(s): Z86.59 - Personal history of other mental and behavioral disorders (6) Obesity affecting : Status: Acute Code(s): O99.210 - Obesity complicating , unspecified trimester Qualifiers: Trimester: third trimester Obesity type affecting : unspecified obesity Qualified Code(s): O99.213 - Obesity complicating , third trimester (7) (spontaneous vaginal delivery): Status: Acute Code(s): O80 - Encounter for full-term uncomplicated delivery (8) Care and examination of lactating mother: Status: Acute Code(s): Z39.1 - Encounter for care and examination of lactating mother Plan PPD 2 Routine care support Discharge home with follow up in office Medications at Discharge Home Medications albuterol sulfate 90 mcg/actuation aerosol inhaler 1 - 2 puff inhalation PRN asthma 06/17/24 famotidine 20 mg tablet 20 mg PO DAILY Acid Reflux 06/17/24 sertraline 50 mg tablet (Zoloft) 50 mg PO DAILY Depression 06/17/24 multivitamin with minerals-folic acid 200 mcg chewable tablet (Adult Multivitamin Gummies) 1 tab PO DAILY 06/21/24 Hospital Course Operations None Procedures None Summary of Care Provided Minutes Spent on Discharge: 15 Hospital Course: Patient had vaginal delivery. Hospital course was uneventful. Physical Exam Narrative Patient seen at bedside. Denies pain. Ambulating and voiding without difficulty. Lochia decreased. Desires discharge home today. Const alert and oriented x3 General Appearance: Negative for in distress HEENT normocephalic Eyes General Eye: normal appearance of both eyes Neck General: normal visual inspection Chest Chest: symmetrical chest wall rise Resp normal respiratory effort and normal air movement Effort and Inspection: symmetric chest movement; Negative for tachypneic Auscultation: clear to auscultation bilaterally Cardio regular rate and regular rhythm Peripheral Pulses: pulses 2+ throughout GI normal to inspection, nondistended, normoactive bowel sounds Narrative: Ice to perineum OB / External & Speculum: vaginal bleeding and other Lochia decreasing Uterus Palpation: uterus fundus firm (Below U) Extremity normal to inspection, full ROM and normal capillary refill Skin no rashes or lesions noted Neuro oriented x3, CN's II-XII intact bilaterally and gait normal Psych mental status grossly normal, thought process normal and activity/motor behavior normal Weight / BMI Weight Weight: 247 lb 12.8 oz Body Mass Index (BMI) 45.3 ABG / Lab / Microbiology Data 06/22/24 07:45 D/C Instructions Discharge Diet: No restrictions Discharge Activity: Return to Normal Activity, No Restrictions, May Drive, May Shower and May Take a Tub Bath (Warm water only. No bath salts, soaps, bubbles) May resume sexual activity in: 6-8 weeks Weight Bearing Status: Weight bearing as tolerated Call your doctor if you observe: Fever of 101 or Higher, Inability to urinate, Using more than 1 pad per hour, Shortness of breath, Dizziness, Chest pain, Calf discomfort and Uncontrolled pain DC O2, CPAP, BIPAP Needs Home O2 Discharge instructions: No Please Follow Up With: [facility] Sony MOREL When: 2 weeks in office or virtual Meaningful Use Info Meaningful Use Meaningful Use Diagnoses (Choose all that apply): None applicable Ischemic Stroke Statin Dosing Therapy Reference: STATIN DOSE THERAPY REFERENCE: * Patients > 75 years receive moderate or high dose statin therapy. * Patients 75 years or YOUNGER should receive HIGH intensity statin dose unless contraindicated. You will be required to document reason for non-treatment if statin daily dose does not meet guidelines. HIGH DOSE STATIN THERAPY DAILY Atorvastatin > than or = to 40 mg Rosuvastatin > than or = to 20 mg Amlodipine + Atorvastatin > than or = to 2.5/40 mg Ezetimibe + Simvastatin 10/80 mg Simvastatin 80mg Discharge Plan Admission Admit Date/Time: 06/22/24 07:05 Primary Reason for Your Visit: Labor and Delivery Attending Provider: Nathan Gandhi Primary Care Provider: Jazzy Cevallos [facility] Discharge Orders/Prescriptions Prescriptions: Continued albuterol sulfate 90 mcg/actuation HFA aerosol inhaler 1 - 2 puff inhalation PRN Patient Comments: has not used in years sertraline [Zoloft] 50 mg tablet 50 mg PO DAILY famotidine 20 mg tablet 20 mg PO DAILY multivit with min-folic acid [Adult Multivitamin Gummies] 200 mcg tablet,chewable 1 tab PO DAILY Discontinued aspirin 81 mg capsule 81 mg PO DAILY Referrals / Follow Up: Jazzy Cevallos [facility], WAITER-C [Primary Care Provider] - Disposition Disposition (needs filled in before D/C Order can be placed): Home, Self Care
[2024-06-24 08:27] VITALS: BP 137/65; PULSE 76; RESP 16; TEMP 36.2; O2SAT 96
[2024-06-24 08:29] VITALS: PULSE 73; O2SAT 96
[2024-06-24 08:30] VITALS: BP 137/65; PULSE 75
[2024-06-24 09:04] VITALS: BP 137/65; PULSE 76; RESP 16; TEMP 36.2; O2SAT 98
== END 2024-06-24 09:25 | disposition home or self-care (01) | DRG 560 ==
PROVIDERS: Admitting Provider Obstetrics & Gynecology; PCP Nurse Practitioner Family; Referring Provider Obstetrics & Gynecology; Visit Provider Obstetrics & Gynecology
DX: O36.63X0 Maternal care for excessive fetal growth, third trimester, not applicable or unspecified (principal); Z37.0 Single live birth; E66.9 Obesity, unspecified; J45.909 Unspecified asthma, uncomplicated; O99.324 Drug use complicating childbirth; F12.90 Cannabis use, unspecified, uncomplicated; F41.9 Anxiety disorder, unspecified; O99.214 Obesity complicating childbirth; O99.344 Other mental disorders complicating childbirth; O99.824 Streptococcus B carrier state complicating childbirth; O69.1XX0 Labor and delivery complicated by cord around neck, with compression, not applicable or unspecified; Z3A.40 40 weeks gestation of pregnancy; Z65.3 Problems related to other legal circumstances; O99.52 Diseases of the respiratory system complicating childbirth; Z79.82 Long term (current) use of aspirin; Z79.899 Other long term (current) drug therapy; Z87.891 Personal history of nicotine dependence
CPT/HCPCS: 59025; 59050; 80307; 85025; 86780; 86850; 86900; 86901; 99221; G0378